=== PATIENT | male | born 1965 | race Caucasian/White ===

== ENCOUNTER 2025-07-15 12:21 | Outpatient (OUT) | payer MEDICARE, MEDICAID, SELFPAY ==
--- OUTSIDE RECORDS SUMMARY | 2020-03-02 11:00 | XMS_ITS | Continuity of Care Document ---
Author Organization [facility] Address [address] [place] [address] Phone Care Team Providers Care Spectral Scientist Name Role Phone Kvng Savage Unavailable Unavailable [...] was developed and its performance characteristics determinedby [employer]. This test has not been FDA cleared [...] anegative (not detected) result in this assay.Performed by:[facility] ([facility]) Advance Directives Directive Yes / No Effective Date File Name No Information Encounters Encounter Description Practice Location Reason(s) For Visit Diagnoses Date Provider Providers Copied on Encounter [facility], [address] [place] [address], [id number], [place] tel:[phone] COVID ECHD Encounter for screening for other viral diseases Artem HILL Kvng. [address] [place] [address], [id number], [place]. tel:[phone] [facility], [address] [place] [address], [id number], [place] tel:[phone] COVID ECHD Encounter for screening for other viral diseases [facility] [address] [place] [address], [id number], [place]. tel:[phone] [facility], [address] [place] [address], [id number], [place] tel:[phone] Dental Clinic Encounter for screening for dental disorders Jhon Roman. [address] [place] [address], [id number], [place]. tel:[phone] [facility], [address] [place] [address], [id number], [place] tel:[phone] Dental Clinic prophy (chief complaint) Encounter for screening for dental disorders Ronak Elise. [address] [place], [address], [place]. tel:[phone] [facility], [address] [place] [address], [id number], [place] tel:[phone] Dental Clinic Dental New (chief complaint)D ental New (chief complaint) Encounter for screening for dental disorders Ronak Elise. [address] [facility], [place], [address], [place]. tel:[phone] Family History Family Member Type Diagnosis Age At Onset Mother Problem (finding) Alive and well Mother Problem (finding) Cardiovascular disease Father Problem (finding) Father Problem (finding) Father went do [facility] health after having collapsed lung Payers Payer name Insurance type Covered democrat ID Authoriza tion(s) No Information Social History [...]
--- OUTSIDE RECORDS SUMMARY | 2025-01-10 09:30 | XMS_ITS ---
Author Organization [facility] Address [address] [place] [address] Care Team Providers Care Extrusion Press Supervisor Name Role Phone Alejandra Edmonds Primary Care Provider [phone] Li Junior [phone] REASON FOR VISIT BH F/U rescheduled from 01/11 Social History Sex Assigned At : Social History Observation Description Sex Assigned At Male Encounters Encounter Location Date Provider Diagnosis [facility] [address] [place] [address] 01/10/2025 Li Quiñones Plan Of Treatment Next Appt Details Provider Name:Alejandra Edmonds, 08/09/2025 02:30:00 PM, [facility] E [facility], [place], [address], Progress Notes * HUI VAUGHN PDOB:[birth year] (60 yo M)Acc No.[id number]:01/10/2025 Behavioral Health Patient: HUI PARSONS Appointment Provider: Keri Quiñones :1965 A ge:59 Y S ex:Male Date:01/10/2025 Address:[address] [place], [place] [address] Pcp:Alejandra Edmonds Subjective: * Chief Complaints: * B H F/U rescheduled from 01/11 * Electronic signature of CATHRYN So FNP on 07/15/2025 at 12:29 PM EDT Sign off status: Pending * Appointment Provider: Keri Quiñones Date: 0 01/10/2025 Generated for Carlos berg/Yani/Sharla on: 1 12:29 PM EDT
--- OUTSIDE RECORDS SUMMARY | 2025-01-11 10:00 | XMS_ITS ---
Author Organization [facility] Address [address] [place] [address] Care Team Providers Care Foil Spinner Name Role Phone Alejandra Edmonds Primary Care Provider [phone] Li Junior [phone] REASON FOR VISIT 1 year f/u Social History Sex Assigned At : Social History Observation Description Sex Assigned At Male Encounters Encounter Location Date Provider Diagnosis [facility] [address] [place] [address] 01/11/2025 Li Quiñones Plan Of Treatment Next Appt Details Provider Name:Alejandra Edmonds, 08/09/2025 02:30:00 PM, [address] [place], [address], Progress Notes * HUI VAUGHN PDOB:[birth year] (60 yo M)Acc No.[id number]:01/11/2025 Behavioral Health Patient: HUI PARSONS Appointment Provider: Keri Quiñones :1965 A ge:59 Y S ex:Male Date:01/11/2025 Address:[address] [place], [place] Pcp:Alejandra Edmonds Subjective: * Chief Complaints: * 1 year f/u * Electronic signature of CATHRYN So FNP on 07/15/2025 at 12:30 PM EDT Sign off status: Pending * Appointment Provider: Keri Quiñones Date: 0 01/11/2025 Generated for Carlos berg/Yani/Samanthaitting on: 1 12:30 PM EDT
--- OUTSIDE RECORDS SUMMARY | 2025-02-03 06:00 | XMS_ITS ---
Author Organization [facility] es Address [address] [place] [address] Care Team Providers Care Mechanical Ordnance Assembler Name Role Phone Alejandra Edmonds Primary Care Provider Ishmael Li Wood [phone] REASON FOR VISIT 3month f/u Social History Sex Assigned At : Social History Observation Description Sex Assigned At Male Encounters Encounter Location Date Provider Diagnosis [address] [place] [address] 02/03/2025 Alejandra Edmonds Plan Of Treatment Next Appt Details Provider Name:Alejandra Edmonds, 08/09/2025 02:30:00 PM, [address] [place] [address] [place], [address], Progress Notes * HUI VAUGHN PDOB:[birth year] (60 yo M)Acc No.[id number]:02/03/2025 Progress Notes Patient: Donnie HUI ROBLES Appointment Provider: Uche Edmonds NP :1965 A ge:59 Y S ex:Male Date:02/03/2025 Address:[address] [place] [address] Subjective: * Chief Complaints: * 3 month f/u * Electronic signature of Francesco Edmonds CNP on 07/15/2025 at 12:29 PM EDT Sign off status: Pending * Appointment Provider: Uche Edmonds NP Date: 0 02/03/2025 Generated for Carlos berg/Yani/Sharla on: 1 12:29 PM EDT
--- OUTSIDE RECORDS SUMMARY | 2025-05-05 06:00 | XMS_ITS ---
Author Organization [facility] es Address [address] [place] [address] Care Team Providers Care Business Performance Manager Name Role Phone Alejandra Edmonds Primary Care Provider [phone] Ishmael Li Wood [phone] REASON FOR VISIT 3month f/u Social History Sex Assigned At : Social History Observation Description Sex Assigned At Male Encounters Encounter Location Date Provider Diagnosis [address] [place] [address] 05/05/2025 Alejandra Edmonds Plan Of Treatment Next Appt Details Provider Name:Alejandra Edmonds, 08/09/2025 02:30:00 PM, [address] [place] [address] [place], [address], Progress Notes * HUI VAUGHN PDOB:[birth year] (60 yo M)Acc No.[id number]:05/05/2025 Progress Notes Patient: Donnie HUI ROBLES Appointment Provider: Uche Edmonds NP :1965 A ge:60 Y S ex:Male Date:05/05/2025 Address:[address] [place] [address] Subjective: * Chief Complaints: * 3 month f/u Billing Information: * Procedure Codes: * Electronic signature of Francesco Edmonds CNP on 07/15/2025 at 12:28 PM EDT Sign off status: Pending * Appointment Provider: Uche Edmonds NP Date: 0 05/05/2025 Generated for Carlos berg/Yani/Sharla on: 1 12:28 PM EDT
--- OUTSIDE RECORDS SUMMARY | 2025-07-15 12:28 | XMS_ITS | Clinical Summary ---
Author Organization [facility] Address [address] [place] [address] Phone Care Team Providers Care Feedlot Manager Name Role Phone Alejandra Edmonds APRN-ROLLED MATERIALS WORKER Primary Care Provider + Allergies No known active allergies Medications cyclobenzaprine (Flexeril) 10 mg tablet Take 1 tablet (10 mg) by mouth 3 times a day as needed. Active desvenlafaxine (Pristiq) 50 mg 24 hr tablet Take 1 tablet (50 mg) by mouth once daily. Do not crush, chew, or split. Active fluticasone (Flonase) 50 mcg/actuation nasal spray Administer 1 spray into each nostril once daily. Shake gently. Before first use, prime pump. After use, clean tip and replace cap. Active HYDROcodone-effie taminophen ([place]) 5-325 mg tablet Take 1 tablet by mouth. Every 4 to 6 hours as needed Active hydrOXYzine HCL (Atarax) 50 mg tablet Take 1 tablet (50 mg) by mouth once daily at bedtime. Active ibuprofen 400 mg tablet Take 1 tablet (400 mg) by mouth 3 times a day as needed. Active pentoxifylline (Trental) 400 mg ER tablet Take 1 tablet (400 mg) by mouth 3 times a day. Do not crush, chew, or split. Active QUEtiapine (SEROquel) 50 mg tablet Take 1 tablet (50 mg) by mouth 2 times a day. Active simvastatin (Zocor) 40 mg tablet Take 1 tablet (40 mg) by mouth once daily at bedtime. Active temazepam (Restoril) 30 mg capsule Take 1 capsule (30 mg) by mouth once daily at bedtime. 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 Active cariprazine HCl (VRAYLAR ORAL) Take 1 capsule by mouth once daily. Active rivaroxaban (Xarelto) 20 mg tablet Take 1 tablet (20 mg) by mouth once daily. Take with food. Active Active Problems Problem Noted Date Diagnosed Date Personal history of COVID-19 07/03/2023 Anticoagulated by anticoagulation treatment 01/2023 Encounter to discuss test results 07/03/2023 Assessment & Plan (07/05/2023 3:29 PM EDT): Reviewed laboratory data and stress test results with patient during this visit Discussed that coronary artery disease is a dynamic process and that he should seek prompt medical attention if new symptoms develop. Patient may follow-up with me on an as-needed basis Thank you Enma for allowing us to participate in Mr. Amadou barrett please do not hesitate to call if questions arise, Sincerely, Lydia Alex MD [facility] Abnormal EKG 05/26/2023 Assessment & Plan (07/05/2023 3:21 PM EDT): Patient with risk factors, recent treadmill perfusion imaging study from May 2023 was negative for ischemia at a workload of 7 METS 96% age-predicted maximum heart rate, LVEF 64%, transient ischemic dilatation 1.1 which is normal. No angina pectoris or anginal equivalent. GERD (gastroesophageal reflux disease) Assessment & Plan (07/05/2023 3:24 PM EDT): Patient did not report any symptoms Remains on ibuprofen as needed Consider GI prophylaxis, defer to primary Discussed GI irritation possibility of GI bleeding on anticoagulation and nonsteroidal agents, my understanding is that he uses the nonsteroidals sparingly. Patient understands importance of seeking medical attention if he were to develop any blood in the stool or black stool. History of DVT (deep vein thrombosis) 05/26/2023 Assessment & Plan (07/05/2023 3:23 PM EDT): Patient remains on high risk medication Xarelto, 20 mg daily, appropriate dose Xarelto management is addressed by primary care. Could consider hematology oncology evaluation to help assess the duration of Antex coagulation. Patient has completed 6 months. History of pulmonary embolus (PE) 05/26/2023 Assessment & Plan (07/05/2023 3:23 PM EDT): No symptoms, completed adequate duration of anticoagulation. Mixed hyperlipidemia 05/26/2023 Assessment & Plan (07/05/2023 3:22 PM EDT): Patient remains on simvastatin 40 mg daily without any untoward effects Lipid profile from February 2023 is at target with LDL of 68 triglycerides 120 HDL 49. Continue same Sinus tachycardia 05/26/2023 Resolved Problems Problem Noted Date Diagnosed Date Resolved Date Chronic obstructive pulmonar y disease, unspecified 05/26/2023 07/03/2023 Hypertension 05/26/2023 07/03/2023 Immunizations Immunization Administration Dates Next Due Flu vaccine (IIV4), preserva tive free *Check age/dose* 06/10/2022 Influenza, Unspecified 07/31/2021 Influenza, seasonal, injectable 05/30/2016,06/13 MMR vaccine, subcutaneous (MMR II) 03/25/2016 Moderna COVID-19 vaccine, bi valent, blue cap/yusuf label *Check age/dose* 06/10/2022 Moderna SARS-CoV-2 Vaccination 08/16/2021,2020,12/07/2020 Pneumococcal conjugate vacci ne, 13-valent (PREVNAR 13) 06/13/2015 Pneumococcal polysaccharide vaccine, 23-valent, age 2 years and older (PNEUMOVAX 23) 07/11/2016 Zoster vaccine, recombinant, adult (SHINGRIX) 01/18/2021,10/03/2020 Family History Medical History Relation Name Comments S/P CABG X3 Mother Relation Name Status Comments Mother Social History Tobacco Use Types Packs/Day Years Used Date Smoking Tobacco: Former Cigarettes Smokeless Tobacco: Never Alcohol Use Standard Drinks/Week Comments Yes 1 (1 standard drink = 0.6 oz pur e alcohol) PHQ-2 Answer Date Recorded Patient Health Questionnaire-2 Score 0 07/03/2023 Sex and Gender Information Value Date Recorded Sex Assigned at Not on file Legal Sex Male 2:48 PM EST Gender Identity Not on file Sexual Orientation Not on file Last Filed Vital Signs Vital Sign Reading Time Taken Comments Blood Pressure 110/78 07/03/2023 9:15 AM EDT Pulse 80 07/03/2023 9:15 AM EDT Temperature - - Respiratory Rate - - Oxygen Saturation - - Inhaled Oxygen Concentration - - Weight 104 kg (229 lb) 07/03/2023 9:15 AM EDT Height 188 cm (6' 2 ) 07/03/2023 9:15 AM EDT Body Mass Index 29.4 07/03/2023 9:15 AM EDT Plan of Treatment Health Maintenance Due Date Last Done Comments CT Colonography 1963 Colonoscopy 1963 Colorectal Cancer Screening 1963 FIT-DNA (Cologuard) 1963 FIT 1963 HIV Screening 1963 Lipid Panel 1963 Medicare Annual Wellness Visit (AWV) 1963 Sigmoidoscopy 1963 Diabetes Screening 1981 Hepatitis C Screening 1981 DTaP/Tdap/Td Vaccines (1 - Tdap) 1985 PSA Prostate Cancer Screening 2013 Pneumococcal Vaccine (3 of 3 - PCV20 or PCV21) 07/11/2021 07/11/2016, 06/13/2015 RSV High Risk: (Elderly (60+) or Population) (1 - Risk 60-74 years 1-dose series) 2023 Influenza Vaccine (#1) 2025 3, 06/10/2022, 07/31/2021, Additional history exists COVID-19 Vaccine ( season) 2025 06/10/2022, 08/16/2021, 01/04/2021, Additional history exists MMR Vaccines Completed 03/25/2016 Zoster Vaccines Completed 01/18/2021, 10/03/2020 HIB Vaccines Aged Out No longer eligi ble based on patient's age to complete this topic HPV Vaccines Aged Out No longer eligi ble based on patient's age to complete this topic Hepatitis A Vaccines Aged Out No long er eligible based on patient's age to complete this topic Hepatitis B Vaccines Aged Out No long er eligible based on patient's age to complete this topic IPV Vaccines Aged Out No longer eligi ble based on patient's age to complete this topic Meningococcal Vaccine Aged Out No braydon jesus eligible based on patient's age to complete this topic Rotavirus Vaccines Aged Out No longer eligible based on patient's age to complete this topic Insurance MEDICARE PART A AND B Member Subscriber Plan / Payer (Ef fective 2021-Present) Name:Jose Angel Tobar Member ID:[id number] Relation to Subscriber:Self Name:Jose Angel Tobar Subscriber ID:[id number] Payer ID:Not on file Group ID:Not on file Type:Not on file Address: [facility] [id number] [id number] MEDICAID Care Teams Feedlot Manager Relationship Specialty Start Date End Date Alejandra Edmonds APRN-JEANNA [address] [place] [id number] PCP - General 11/11/22
--- OUTSIDE RECORDS SUMMARY | 2025-07-15 12:29 | XMS_ITS | Patient Health Record ---
Author Organization [facility] Address [facility] access hospital[address] [place] [address] Care Team Providers Care Slate Trimmer Name Role Phone Vinicio Andersen Unavailable [phone] Reason For Referral No Information Plan Of Treatment No Information Insurance Providers Payer Name Payer Address Payer Phone Subscriber Number Group Number Insured Name Patient Relationship to Insured Coverage Start Date Coverage End Date [place] [employer] [address] [place] [address] [id number] Jose Angel Tobar Self - patient is the insured
--- OUTSIDE RECORDS SUMMARY | 2025-07-15 12:29 | XMS_ITS | Encounter Summary ---
Author Organization [facility] Address [address] [place] [address] Phone Care Team Providers Care Tool Salvage Worker Name Role Phone Alejandra Edmonds Primary Care Provider + Alejandra Edmonds Primary Care Provider + Encounter Details Date Type Department Care Team (Late st Contact Info) Description 11/09/2022 Orders Only [facility] [address] [place] [address] Conversion, Onbase Social History Tobacco Use Types Packs/Day Years Used Date Smoking Tobacco: Never Assessed Sex and Gender Information Value Date Recorded Sex Assigned at Not on file Legal Sex Male 2:48 PM EST Gender Identity Not on file Sexual Orientation Not on file documented as of this encounter Plan of Treatment Scheduled Orders Name Type Priority Associated Diagnoses Orde r Schedule OUTSIDE LAB SCAN Lab Ordered: 11/09/2022 OUTSIDE LAB SCAN Lab Ordered: 11/09/2022 documented as of this encounter Visit Diagnoses Not on filedocumented in this encounter Care Teams Tool Salvage Worker Relationship Specialty Start Date End Date Alejandra Edmonds APRN-CNP [address] [place] [address] PCP - General 11/11/22 Alejandra Edmonds APRN-CNP [address] [place] [address] PCP - General 11/09/22 11/10/22 documented as of this encounter
--- OUTSIDE RECORDS SUMMARY | 2025-07-15 12:30 | XMS_ITS | Clinical Summary ---
Author Organization [facility] Healthcare Address [address] [place] [address] Care Team Providers Care Photographic Reproduction Technician Name Role Phone Unavailable Primary Care Provider Unavailabl e Social History Tobacco Use Types Packs/Day Years Used Date Smoking Tobacco: Never Assessed Sex and Gender Information Value Date Recorded Sex Assigned at Not on file Legal Sex Male 6:55 PM EDT Gender Identity Not on file Sexual Orientation Not on file Last Filed Vital Signs Vital Sign Reading Time Taken Comments Blood Pressure 117/73 03/06/2022 12:00 PM EDT Pulse - - Temperature - - Respiratory Rate - - Oxygen Saturation - - Inhaled Oxygen Concentration - - Weight - - Height 188 cm (6' 2 ) 03/06/2022 12:00 PM EDT Body Mass Index - - Plan of Treatment Not on file Insurance MEDICARE
--- OUTSIDE RECORDS SUMMARY | 2025-07-15 12:30 | XMS_ITS | Encounter Summary ---
Author Organization [facility] Address [address] [place] [address] Phone Care Team Providers Care Extractions Technician Name Role Phone Alejandra Edmonds Primary Care Provider + Encounter Details Date Type Department Care Team ([facility] st Contact Info) Description 11/15/2022 Orders Only [facility] [address] [place] [address] Conversion, Onbase Social History Tobacco Use Types [...] r Schedule OUTSIDE LAB SCAN Lab Ordered: 11/15/2022 documented as of this encounter Visit Diagnoses Not on filedocumented in this encounter Care Teams Extractions Technician Relationship Specialty Start Date End Date Alejandra Edmonds APRN-CNP [address] [place] [id number] PCP - General 11/11/22 documented as of this encounter
--- OUTSIDE RECORDS SUMMARY | 2025-07-15 12:31 | XMS_ITS | Patient Health Record ---
Author Organization [facility] Servic es Address [address] [place] [address] Care Team Providers Care Dough Molder Name Role Phone Alejandra Edmonds Primary Care Provider [phone] Li Quiñones Unavailable [phone] Allergies No Known Allergies Results Component Value Reference Range Flag Notes Prostate Specific Antigen Sc rn Reviewed date:06/08/2025 05:57:21 PM Interpretation: Performing Lab:, [facility], [address], [place] Notes/Report: Reason for Exam Encounter for prostate cancer screening PSA Screen (Yearly Only) 0.920 0.000-4.000 ng/mL N Serial tumor marker results determined by assays using different manufacturers or methods may not be comparable. 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 Vitamin D 25 Hydroxy Reviewed date:06/08/2025 05:56:47 PM Interpretation: Performing Lab: Notes/Report: Reason for Exam High blood triglycerides Reason for Exam Vitamin D deficiency, unspecified Vitamin D 25 Hydroxy Total 38.6 30-100 ng/mL N VITAMIN D STATUS 25(OH)VITAMIN D RANGE (ng/mL) Deficient <20 Insufficient 20 to <30 Sufficient 30 to 100 Reference: Guerline MF,Vaibhav NC, Gonzalez OCONNOR, et al. Evaluation,treatment, and prevention of vitamin D deficiency; an Endocrine Society clinical practice guideline. JCEM. 2010; 96(7):1911-30. Complete Blood Count Auto Di ff Reviewed date:05/27/2025 01:46:43 PM Interpretation: Performing Lab:, [facility], [address] [place] Notes/Report: White Blood Count 11.7 4.1-10.5 [CFU]/mL H Uncorrected WBC 11.7 4.1-10.5 10*3/uL H Red Blood Count 5.06 3.90-5.60 10*6/uL N Hemoglobin 14.5 13.0-17.0 g/dL N Hematocrit 43.6 38.8-50.0 % N Mean Corpuscular Volume 86.3 83.5-101 fL N Mean Corpuscular Hemoglobin 28.7 27.5-35.2 pg N Mean Corpuscular HGB Conc 33.3 32.5-35.6 g/dL N Red Cell Distribution Width 13.1 12.0-14.8 % N Platelet Count 228 150-450 10*3/uL N Mean Platelet Volume 7.1 6.6-10.1 fL N Neutrophils % (Auto) 82.6 . % Lymphocytes % (Auto) 14.1 . % Monocytes % (Auto) 2.6 . % Eosinophils % (Auto) 0.2 . % Basophils % (Auto) 0.5 . % NRBC% 0.1 0-0.5 /100{WBC} N Neutrophils # (Auto) 9.7 1.8-7.7 10*3/uL H Lymphocytes # (Auto) 1.6 1.00-4.8 10*3/uL N Monocytes # (Auto) 0.3 0.0-0.8 10*3/uL N Eosinophils # (Auto) 0.0 0.0-0.45 10*3/uL N Basophils # (Auto) 0.1 0.0-0.2 10*3/uL N Monocyte Distribution Width 16.97 0.00-20.00 % N Comprehensive Metabolic Pane l Reviewed date:07/12/2025 09:23:02 AM Interpretation: Performing Lab:, [facility], [address] [place] Notes/Report: Glucose 206 70-100 mg/dL H Random Glucose Reference Range is dependent on time and content of last meal. Glucose of more than 200 mg/dL in a nonstressed, ambulatory subject supports the diagnosis of Diabetes Mellitus. ADA recommended reference range Blood Urea Nitrogen 16 7-25 mg/dL N Creatinine 1.15 0.70-1.30 mg/dL N Sodium 136 136-145 mmol/L N Potassium 4.3 3.5-5.1 mmol/L N Hemolysis is present at a level that could interfere with the result. Contact lab if redraw is required Chloride 104 98-107 mmol/L N Carbon Dioxide 24.0 21.0-31.0 mmol/L N Calcium 9.4 8.6-10.3 mg/dL N Total Protein 7.6 6.4-8.9 g/dL N Albumin Level 4.6 3.5-5.7 g/dL N Globulin 3.0 Albumin/Globulin Ratio 1.5 Bilirubin,Total 0.7 0.3-1.0 mg/dL N Aspartate Amino Transferase 34 13-39 U/L N Alanine Aminotransferase 51 7-52 U/L N Alkaline Phosphatase 81 34-104 U/L N Estimated GFR >60.0 Anion Gap 12.3 6.0-15.0 N Creatinine Clr Calc Pharmacy 89.38 Lipase Reviewed date:07/12/2025 09:23:02 AM Interpretation: Performing Lab: Notes/Report: Lipase 29.0 11.0-82.0 U/L N Complete Blood Count Auto Di ff Reviewed date:07/12/2025 09:23:02 AM Interpretation: Performing Lab:, [facility], [address] [place] Notes/Report: White Blood Count 10.0 4.1-10.5 [CFU]/mL N Uncorrected WBC 10.0 4.1-10.5 10*3/uL N Red Blood Count 5.35 3.90-5.60 10*6/uL N Hemoglobin 15.7 13.0-17.0 g/dL N Hematocrit 45.9 38.8-50.0 % N Mean Corpuscular Volume 85.8 83.5-101 fL N Mean Corpuscular Hemoglobin 29.4 27.5-35.2 pg N Mean Corpuscular HGB Conc 34.2 32.5-35.6 g/dL N Red Cell Distribution Width 13.8 12.0-14.8 % N Platelet Count 239 150-450 10*3/uL N Mean Platelet Volume 7.8 6.6-10.1 fL N Neutrophils % (Auto) 70.2 . % Lymphocytes % (Auto) 21.5 . % Monocytes % (Auto) 5.5 . % Eosinophils % (Auto) 2.1 . % Basophils % (Auto) 0.7 . % NRBC% 0.2 0-0.5 /100{WBC} N Neutrophils # (Auto) 7.0 1.8-7.7 10*3/uL N Lymphocytes # (Auto) 2.1 1.00-4.8 10*3/uL N Monocytes # (Auto) 0.5 0.0-0.8 10*3/uL N Eosinophils # (Auto) 0.2 0.0-0.45 10*3/uL N Basophils # (Auto) 0.1 0.0-0.2 10*3/uL N Monocyte Distribution Width 19.43 0.00-20.00 % N Dipstick and Microscopic Reviewed date:07/12/2025 09:23:02 AM Interpretation: Performing Lab:, [facility], [address] [facility] Notes/Report: Name Collection Type:: Clean-Voided Midstream Color,Urine Light-Yellow Yellow Appearance,Urine Clear Clear Specificy [place],Urine 1.022 1.001-1.030 N pH,Urine 6.0 5.0-9.0 N Leukocyte Esterase,Urine Negative Negative Nitrite,Urine Negative Negative Protein,Urine 20 Negative mg/dL Glucose,Urine (UA) 100 Normal mg/dL Ketones,Urine Negative Negative Urobilinogen,Urine Normal Normal mg/dL Bilirubin,Urine Negative Negative Occult Blood,Urine 3+ Negative RBC,Urine Innumerable 0-4 [HPF] WBC,Urine 20-49 0-4 [HPF] Bacteria,Urine None Seen None Seen [HPF] Hyaline Casts,Urine None 0-8 [LPF] Mucus,Urine Rare Lipid Panel Reviewed date:06/08/2025 05:57:14 PM Interpretation: Performing Lab: Notes/Report: Reason for Exam High blood triglycerides Reason for Exam Vitamin D deficiency, unspecified Cholesterol 171 140-200 mg/dL N Chol less than 200 mg/dl low risk Chol 201-239 mg/dl borderline risk Chol 240 mg/dl and greater high risk HDL Cholesterol 47 23-92 mg/dL N HDL CHOL ATP-III CLASSIFICATION Cardiovascular Risk HDL > or equal to 60 mg/dL LOW HDL < 40 mg/dL HIGH Triglyceride w/Reflex 192 0-149 mg/dL H TRIG ATP III CLASSIFICATION TRIG less than 150 mg/dL Normal TRIG 150-199 mg/dL Borderline high TRIG 200-500 mg/dL High TRIG greater than 500 mg/dL Very high Standard traceable to the Center for Disease Conrtrol and Prevention (CDC) test method. LDL Cholesterol,Calculated 86 0-100 mg/dL N LDL ATP III CLASSIFICATION LDL less than 100 mg/dL Optimal LDL 100-129 mg/dL Near or above optimal LDL 130-159 mg/dL Borderline high LDL 160-189 mg/dL High LDL greater than 189 mg/dL Very high VLDL CHOLESTEROL 38 Chol/HDL Ratio 3.6 <5.0 Comprehensive Metabolic Pane l Reviewed date:06/08/2025 05:57:39 PM Interpretation: Performing Lab:, [facility], [address], [place] Notes/Report: Reason for Exam High blood triglycerides Reason for Exam Vitamin D deficiency, unspecified Glucose 102 70-100 mg/dL H Random Glucose Reference Range is dependent on time and content of last meal. Glucose of more than 200 mg/dL in a nonstressed, ambulatory subject supports the diagnosis of Diabetes Mellitus. ADA recommended reference range Blood Urea Nitrogen 18 7-25 mg/dL N Creatinine 1.02 0.70-1.30 mg/dL N Sodium 138 136-145 mmol/L N Potassium 4.0 3.5-5.1 mmol/L N Chloride 104 98-107 mmol/L N Carbon Dioxide 24.8 21.0-31.0 mmol/L N Calcium 8.8 8.6-10.3 mg/dL N Total Protein 7.3 6.4-8.9 g/dL N Albumin Level 4.6 3.5-5.7 g/dL N Globulin 2.7 Albumin/Globulin Ratio 1.7 Bilirubin,Total 1.2 0.3-1.0 mg/dL H Aspartate Amino Transferase 23 13-39 U/L N Alanine Aminotransferase 39 7-52 U/L N Alkaline Phosphatase 80 34-104 U/L N Estimated GFR >60.0 Anion Gap 13.2 6.0-15.0 N Lipase Reviewed date:05/25/2025 02:13:24 PM Interpretation: Performing Lab: Notes/Report: Lipase 20.0 11.0-82.0 U/L N Hepatic Panel Reviewed date:05/25/2025 02:11:58 PM Interpretation: Performing Lab:, [facility], [address] [place] Notes/Report: Total Protein 7.4 6.4-8.9 g/dL N Albumin Level 4.6 3.5-5.7 g/dL N Globulin 2.8 Albumin/Globulin Ratio 1.6 Bilirubin,Total 0.8 0.3-1.0 mg/dL N Bilirubin,Direct 0.20 0.03-0.18 mg/dL H Bilirubin,Indirect 0.6 Aspartate Amino Transferase 22 13-39 U/L N Alanine Aminotransferase 42 7-52 U/L N Alkaline Phosphatase 82 34-104 U/L N Basic Metabolic Panel Reviewed date:05/26/2025 09:23:53 PM Interpretation: Performing Lab: Notes/Report: Glucose 128 70-100 mg/dL H Random Glucose Reference Range is dependent on time and content of last meal. Glucose of more than 200 mg/dL in a nonstressed, ambulatory subject supports the diagnosis of Diabetes Mellitus. ADA recommended reference range Blood Urea Nitrogen 17 7-25 mg/dL N Sodium 137 136-145 mmol/L N Potassium 4.4 3.5-5.1 mmol/L N Chloride 103 98-107 mmol/L N Carbon Dioxide 25.3 21.0-31.0 mmol/L N Calcium 9.4 8.6-10.3 mg/dL N Creatinine 1.13 0.70-1.30 mg/dL N Estimated GFR >60.0 Anion Gap 13.1 6.0-15.0 N Creatinine Clr Calc Pharmacy 89.47 Urine Culture Reviewed date:05/25/2025 02:11:48 PM Interpretation: Performing Lab:, [facility], [address] [place] [address] [place] Notes/Report: Dipstick and Microscopic Reviewed date:05/26/2025 09:23:42 PM Interpretation: Performing Lab:, [facility], [address] [place] Notes/Report: Name Collection Type:: Clean-Voided Midstream Color,Urine Dark-Brown Yellow AA Appearance,Urine Turbid Clear AA Specificy [place],Urine 1.028 1.001-1.030 N pH,Urine 5.5 5.0-9.0 N Leukocyte Esterase,Urine 2+ Negative Nitrite,Urine Negative Negative Protein,Urine 100 Negative mg/dL Glucose,Urine (UA) Normal Normal mg/dL Ketones,Urine Negative Negative Urobilinogen,Urine Normal Normal mg/dL Bilirubin,Urine Negative Negative Occult Blood,Urine 3+ Negative RBC,Urine Innumerable 0-4 [HPF] WBC,Urine 5-9 0-4 [HPF] Othe Crystals,Urine 3+ Bacteria,Urine None Seen None Seen [HPF] Hyaline Casts,Urine None 0-8 [LPF] Mucus,Urine 4+ AA Budding Yeast,Urine 4+ None Seen [HPF] Complete Blood Count Auto Di ff Reviewed date:11/05/2024 07:25:53 AM Interpretation: Performing Lab:, [facility], [address], [place] Notes/Report: Reason for Exam Hyperlipidemia, unspecified hyperlipidemia type White Blood Count 6.4 4.1-10.5 10*3/uL N Uncorrected WBC 6.4 4.1-10.5 10*3/uL N Red Blood Count 5.06 3.90-5.60 10*6/uL N Hemoglobin 15.0 13.0-17.0 g/dL N Hematocrit 44.2 38.8-50.0 % N Mean Corpuscular Volume 87.3 83.5-101 fL N Mean Corpuscular Hemoglobin 29.7 27.5-35.2 pg N Mean Corpuscular HGB Conc 34.0 32.5-35.6 g/dL N Red Cell Distribution Width 13.2 12.0-14.8 % N Platelet Count 213 150-450 10*3/uL N Mean Platelet Volume 7.6 6.6-10.1 fL N Neutrophils % (Auto) 56.1 . % Lymphocytes % (Auto) 33.3 . % Monocytes % (Auto) 5.5 . % Eosinophils % (Auto) 4.3 . % Basophils % (Auto) 0.8 . % NRBC% 0.3 0-0.5 /100{WBC} N Neutrophils # (Auto) 3.6 1.8-7.7 10*3/uL N Lymphocytes # (Auto) 2.1 1.00-4.8 10*3/uL N Monocytes # (Auto) 0.3 0.0-0.8 10*3/uL N Eosinophils # (Auto) 0.3 0.0-0.45 10*3/uL N Basophils # (Auto) 0.0 0.0-0.2 10*3/uL N Vitamin D 25 Hydroxy Reviewed date:11/05/2024 07:29:40 AM Interpretation: Performing Lab: Notes/Report: Reason for Exam Hyperlipidemia, unspecified hyperlipidemia type Reason for Exam Vitamin D deficiency, unspecified Vitamin D 25 Hydroxy Total 44.1 30-100 ng/mL N VITAMIN D STATUS 25(OH)VITAMIN D RANGE (ng/mL) Deficient <20 Insufficient 20 to <30 Sufficient 30 to 100 Reference: Guerline MF,Vaibhav BAKER, Gonzalez OCONNOR, et al. Evaluation,treatment, and prevention of vitamin D deficiency; an Endocrine Society clinical practice guideline. JCEM. 2010; 96(5):1911-30. Thyroid Stim Hormone w/Rflx Reviewed date:11/05/2024 07:25:32 AM Interpretation: Performing Lab: Notes/Report: Reason for Exam Hyperlipidemia, unspecified hyperlipidemia type Reason for Exam Vitamin D deficiency, unspecified Thyroid Stim Hormone w/Rflx 1.50 0.45-5.33 u[iU]/mL N Lipid Panel Reviewed date:11/05/2024 07:25:26 AM Interpretation: Performing Lab: Notes/Report: Reason for Exam Hyperlipidemia, unspecified hyperlipidemia type Reason for Exam Vitamin D deficiency, unspecified Cholesterol 128 140-200 mg/dL L Chol less than 200 mg/dl low risk Chol 201-239 mg/dl borderline risk Chol 240 mg/dl and greater high risk HDL Cholesterol 40 23-92 mg/dL N HDL CHOL ATP-III CLASSIFICATION Cardiovascular Risk HDL > or equal to 60 mg/dL LOW HDL < 40 mg/dL HIGH Triglyceride w/Reflex 163 0-149 mg/dL H TRIG ATP III CLASSIFICATION TRIG less than 150 mg/dL Normal TRIG 150-199 mg/dL Borderline high TRIG 200-500 mg/dL High TRIG greater than 500 mg/dL Very high Standard traceable to the Center for Disease Conrtrol and Prevention (CDC) test method. LDL Cholesterol,Calculated 55 0-100 mg/dL N LDL ATP III CLASSIFICATION LDL less than 100 mg/dL Optimal LDL 100-129 mg/dL Near or above optimal LDL 130-159 mg/dL Borderline high LDL 160-189 mg/dL High LDL greater than 189 mg/dL Very high VLDL CHOLESTEROL 32 Chol/HDL Ratio 3.2 <5.0 Comprehensive Metabolic Pane l Reviewed date:11/05/2024 07:25:40 AM Interpretation: Performing Lab:, [facility], [address] [place] Notes/Report: Reason for Exam Hyperlipidemia, unspecified hyperlipidemia type Reason for Exam Vitamin D deficiency, unspecified Glucose 96 70-100 mg/dL N Random Glucose Reference Range is dependent on time and content of last meal. Glucose of more than 200 mg/dL in a nonstressed, ambulatory subject supports the diagnosis of Diabetes Mellitus. ADA recommended reference range Blood Urea Nitrogen 17 7-25 mg/dL N Creatinine 1.10 0.70-1.30 mg/dL N Sodium 140 136-145 mmol/L N Potassium 4.2 3.5-5.1 mmol/L N Chloride 106 98-107 mmol/L N Carbon Dioxide 29.2 21.0-31.0 mmol/L N Calcium 8.9 8.6-10.3 mg/dL N Total Protein 7.0 6.4-8.9 g/dL N Albumin Level 4.5 3.5-5.7 g/dL N Globulin 2.5 Albumin/Globulin Ratio 1.8 Bilirubin,Total 0.7 0.3-1.0 mg/dL N Aspartate Amino Transferase 28 13-39 U/L N Alanine Aminotransferase 57 7-52 U/L H Alkaline Phosphatase 68 34-104 U/L N Estimated GFR >60.0 Anion Gap 9.0 6.0-15.0 meq/L N Reason For Referral No Information Medications Medication SIG (Take, Route, Frequency, Duration) Notes Start Date End Date Status QUEtiapine Fumarate 50 MG Tablet TAKE 1 OR 2 TABLETS BY MOUTH AT BEDTIME; Duration: 90 Active Vitamin D (Ergocalciferol) 1.25 MG (35296 UT) Capsule TAKE 1 CAPSULE BY MOUTH 1 TIME A WEEK; Duration: 84 days Active HYDROcodone-Acetaminophen 5-325 MG Tablet 1 tablet Orally every 6 hrs; Duration: 30 days As needed 07/05/2025 08/04/2025 Active Atorvastatin Calcium 20 MG Tablet 1 tablet Orally Once a day; Duration: 90 days Active Vraylar 3 MG Capsule TAKE 1 CAPSULE BY M OUTH EVERY DAY; Duration: 30 Active Xarelto 20 MG Tablet TAKE 1 TABLET BY MO UTH EVERY DAY; Duration: 30 Active Ondansetron 4 MG Tablet Disintegrating Oral; Duration: 4 Days Act tricia Temazepam 30 MG Capsule 1 capsule at bed time Orally Once a day; Duration: 30 days 06/17/2025 Active hydrOXYzine HCl 50 MG Tablet TAKE 1 TABLET BY MOUTH AT NIGHT FOR 30 DAYS.; Duration: 30 Active oxyCODONE HCl 5 MG Tablet Oral; Duration: 5 Days Active Ibuprofen 600 MG Tablet Oral; Duration: 7 Days Active Tamsulosin HCl 0.4 MG Capsule TAKE 1 CAPSULE BY MOUTH EVERY DAY 30 minutes after same meal each day until stone passess Oral; Duration: 10 Days Active Pentoxifylline Activ e Flonase Allergy Relief 50 MCG/ACT Suspension 1 spray in each nostril Nasally Once a day; Duration: 1 month Active Desvenlafaxine Succinate ER 50 MG Tablet Extended Release 24 Hour TAKE 1 TABLET BY MOUTH EVERY DAY; Duration: 30 Active Immunizations Vaccine Route Administration Date Status Comme nts Influenza 3+ PRIVATE IM Intramuscular 07/18/2020 Administe red Influenza 3+ PRIVATE IM Intramuscular 07/31/2021 Administe red Influenza 3+ PRIVATE IM Intramuscular 06/26/2023 Administe red MODERNA IM Intramuscular 12/07/2020 Administered MODERNA IM Intramuscular 01/04/2021 Administered MODERNA IM Intramuscular 08/16/2021 Administered Social History Tobacco Use: Social History Observation Description Date Details (start date - stop date) Former Smoker NA - NA Sex Assigned At : Social History Observation Description Sex Assigned At Male Social History General Social Info Question Answer Notes Transition of Care: ER/UC/hospital since last office v isit? No Specialist seen since last office visit? No Depression Screening (PHQ-9): Little int erest or pleasure in doing things Several days Feeling down, depressed, or hopeless Not at all Trouble falling or staying asleep, or sleeping t oo much Several days Feeling tired or having little energy Not at all Poor appetite or overeating Not at all Feeling bad about yourself-o r that you are a failure or have let yourself or your family down Several days Trouble concentrating on thi ngs, such as reading the newspaper or watching television Not at all Moving or speaking so slowly that other people could have noticed. Or the opposite being so fidgety or restless that you have been moving around a lot more than usual Not at all Thoughts that you would be b addie off , or of hurting yourself in some way Not at all Total Score 3 Intepretation Minimal Depression Substance abuse/mental health issues of patient/family Patient - Caffeine Use,Stress/Anxiety Ability to understand healthcare/treatment Patient: Good Social/Support Concerns: Patient: No Behaviors affecting health Poor/Risky Behaviors: Chavo cates- Communication Barrier: Language Barrier?: No Drug/Alcohol: Social Info Question Answer Notes AUDIT-C (Standard) Did you have a drink containing alcohol in the past year? Yes How often did you have a drink containing alcohol in the past year? Monthly or less (1 point) How many drinks did you have on a typical day when you were drinking in the past year? 3 or 4 drinks (1 point) How often did you have six or more drinks on one occasion in the past year? Less than monthly (1 point) Points 3 Interpretation Negative Tobacco Use: Social Info Question Answer Notes Tobacco Control (Standard) Tobacco use: Former smoker How long has it been since you last smoked? 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) Active confirmed Problem Chronic pain (21059006) Other chronic pain (G89.29) Active confirmed Problem Peripheral vascular disease (942486761) PVD (peripheral vascular disease) (I73.9) Active confirmed Problem COPD - Chronic obstructive pulmonary disease (88587567) Chronic obstructive pulmonary disease, unspecified COPD type (J44.9) Active confirmed Problem Gastroesophageal reflux disease (404000120) Gastroesophageal reflux disease, esophagitis presence not specified (K21.9) Active confirmed Problem Hyperlipidaemia (14223580) Hyperlipidemia, unspecified hyperlipidemia type (E78.5) Active confirmed Problem Erectile dysfunction (disorder) (109379025) Erectile dysfunction, unspecified erectile dysfunction type (N52.9) Active confirmed Problem Kidney stone (59755529) Kidney stone (N20.0) Active confirmed Problem Moderate recurrent major depression (28968900) Moderate episode of recurrent major depressive disorder (F33.1) Active confirmed Problem Episodic mood disorder (07257699463079) Episodic mood disorder (F39) Active confirmed Problem Lumbosacral spondylosis without myelopathy (38600808) Osteoarthritis of lumbar spine, unspecified spinal osteoarthritis complication status (M47.816) Active confirmed Problem Bilateral tinnitus (4870807703578) Bilateral tinnitus (H93.13) Active confirmed Problem Pure hyperglyceridemia (968031387) High blood triglycerides (E78.1) Active confirmed Problem Atrophie nadia (L90.8) Active confirmed Vital Signs Heart Rate 88 /min 06/07/2025 Temperature 97.7 degrees Fahrenheit 06/07/2025 Respiratory Rate 20 /min 06/07/2025 Oximetry 95 % 06/07/2025 Blood pressure diastolic 81 mm Hg 06/07/2025 Height 6ft 2 in in 06/07/2025 Blood pressure systolic 114 mm Hg 06/07/2025 Weight 239.6 lbs 06/07/2025 BMI 30.76 kg/m2 06/07/2025 Encounters Encounter Location Date Provider Diagnosis [address] [address] 08/03/2024 Alejandra Edmonds PVD (peripheral vasc ular disease) I73.9 ; Chronic obstructive pulmonary disease, unspecified COPD type J44.9 ; Atrophie nadia L90.8 and Moderate episode of recurrent major depressive disorder F33.[address] [address] 11/04/2024 Alejandra Edmonds Vitamin D deficiency , unspecified E55.9 ; Hyperlipidemia, unspecified hyperlipidemia type E78.5 and PVD (peripheral vascular disease) I73.9 [facility] [address] [place] [address] 02/01/2025 Alejandra Edmonds Chronic obstructive pulmonary disease, unspecified COPD type J44.9 ; Primary insomnia F51.01 ; Hyperlipidemia, unspecified hyperlipidemia type E78.5 ; PVD (peripheral vascular disease) I73.9 ; Moderate episode of recurrent major depressive disorder F33.1 ; Vitamin D deficiency, unspecified E55.9 and Atrophie nadia L90.[address] [address] 05/10/2025 [facility] PVD (peripheral vasc ular disease) I73.9 ; Chronic obstructive pulmonary disease, unspecified COPD type J44.9 ; Other chronic pain G89.29 ; Vitamin D deficiency, unspecified E55.9 ; High blood triglycerides E78.1 and Encounter for prostate cancer screening Z12.5 [facility] [address] [place] [address] 06/07/2025 [facility] Kidney stone N20.0 [facility] [address] [address] 07/14/2025 [place] [address] [place] [address] 07/29/2024 [place] [address] [place] [address] 08/09/2024 [facility] Atrophie nadia L90 .8 [facility] [address] [place] [address] 08/16/2024 [place] [address] [address] 08/24/2024 [place] [address] [place] [address] 09/15/[address]24 [place] [address] [place] [address] 10/15/2024 [place] [address] [place] [address] 11/05/2024 [facility] Hyperlipidemia, unspecified hyperlipidemia type E78.5 [facility] [address] [place] [address] 11/16/2024 [place] [address] [place] [address] 11/24/2024 [place] [address] [place] [address] 12/10/2024 [facility] [address] [place] [address] 12/13/2024 [facility] [address] [place] [address] 12/28/2024 [facility] [address] [place] [address] 01/14/2025 [place] [address] [place] [address] 02/04/2025 [facility] [address] [place] [address] 02/09/2025 [place] [address] [place] [address] 03/01/2025 [place] [address] [place] [address] 03/10/2025 [place] [address] [place] [address] 03/15/2025 [place] [address] [place] [address] 03/23/2025 [place] [address] [place] [address] 05/26/2025 [place] [address] [place] [address] 06/08/2025 [place] [address] [place] [address] 06/14/2025 [place] [address] [place] [address] 06/17/2025 [place] [address] [place] [address] 07/05/2025 [facility] Other chronic pain G89.29 Assessments Encounter Date Diagnosis (ICD Code) Assessment Notes Treatment Notes Treatment Clinical Notes Section Notes 11/05/2024 Hyperlipidemia, unspecified hyperlipidemia type (ICD-10 - E78.5) 08/09/2024 Atrophie nadia (ICD-10 - L90.8) 11/04/2024 Vitamin D deficiency, unspecified (ICD-10 - E55.9) Will check Vit D level, continue Vitamin D replacement as advised. Discussed diet high in Vit D, also 10-15 minutes of direct sunlight is the best source of Vit D. 11/04/2024 Hyperlipidemia, unspecified hyperlipidemia type (ICD-10 - E78.5) lipid panel every 3-6 months with CMP to monitor liver and renal function, adjust medications accordingly. Discussed a low chol diet. Enc moderate daily exercise. If you develop any muscle cramping, leg cramps/pain, intolerance to medication please RTO. 02/01/2025 Chronic obstructive pulmonary disease, unspecified COPD type (ICD-10 - J44.9) COPD stable, continue medications as prescribed. Smoking cessation is encouraged. CP/pressure/sob, cough with fever, chills ER, 911 05/10/2025 PVD (peripheral vascular disease) (ICD-10 - I73.9) pt requested medication refills today, refills sent per request 05/10/2025 Chronic obstructive pulmonary disease, unspecified COPD type (ICD-10 - J44.9) COPD stable, continue medications as prescribed. Smoking cessation is encouraged. CP/pressure/sob, cough with fever, chills ER, 911 08/03/2024 PVD (peripheral vascular disease) (ICD-10 - I73.9) continue medication, enc moderate walking. Pt is non smoker. 06/07/2025 Kidney stone (ICD-10 - N20.0) Patient reports persistent kidney stone pain rated at 6 out of 10. Recent episode of feeling unwell and appearing pale. Possible blood in urine noted. Recent ER visit for kidney stone; received stronger pain medication. Awaiting urology appointment for further management. Patient is pushing fluids and using a strainer to collect stone if passed. - Refilled Percocet to manage pain until urology appointment. - Ordered CBC to check white blood cell count. - Ordered renal function panel to assess kidney function. - Continue Soquel and hydrocodone as prescribed for pain. - Refilled Mounjaro, famotidine, Flomax as requested. - Continue Singulair as prescribed. - Referral to Urology for kidney stone management. 07/05/2025 Other chronic pain (ICD-10 - G89.29) 05/10/2025 Other chronic pain (ICD-10 - G89.29) You are being prescribed a control substance. These can be habit forming and will be used for a short period a time. Refills will be determined based on symptoms. Do not mix these medications with alcohol, do not share these medications, do not sell these medication, do not drive or operate heavy machinery while taking these medications. OARRS report was reviewed. No misuse or abuse is noted. Pt verbalizes understanding. 08/03/2024 Chronic obstructive pulmonary disease, unspecified COPD type (ICD-10 - J44.9) COPD stable, continue medications as prescribed. Smoking cessation is encouraged. CP/pressure/sob, cough with fever, chills ER, 911 11/04/2024 PVD (peripheral vascular disease) (ICD-10 - I73.9) stable, continue medications. 02/01/2025 Primary insomnia (ICD-10 - F51.01) good sleep hygiene discussed. Avoid stimulants such as tv, electronic, exercises before bed. Relaxation techniques also discussed. pt enc to take 5mg to 10 mg melatonin. If symptoms persist will discuss prescription sleep aides 08/03/2024 Atrophie nadia (ICD-10 - L90.8) stable, take medication as prescribed, followed by podiatry as well. No recent sores 02/01/2025 Hyperlipidemia, unspecified hyperlipidemia type (ICD-10 - E78.5) lipid panel every 3-6 months with CMP to monitor liver and renal function, adjust medications accordingly. Discussed a low chol diet. Enc moderate daily exercise. If you develop any muscle cramping, leg cramps/pain, intolerance to medication please RTO. 05/10/2025 Vitamin D deficiency, unspecified (ICD-10 - E55.9) Will check Vit D level, continue Vitamin D replacement as advised. Discussed diet high in Vit D, also 10-15 minutes of direct sunlight is the best source of Vit D. 08/03/2024 Moderate episode of recurrent major depressive disorder (ICD-10 - F33.1) Continue medication, potential side effects were discussed as well as proper administration of medication. Pt verbalizes understanding. Pt is aware not to stop medication suddenly and to come to office to be weaned down, abrupt discontinuation can cause withdrawal symptoms. Stable mood today, no c/o SI/HI, if feelings occur pt to call 911/ER. Discussed coping mechanisms such as exercise, group therapy, and counseling. 05/10/2025 High blood triglycerides (ICD-10 - E78.1) lipid panel every 3-6 months with CMP to monitor liver and renal function, adjust medications accordingly. Discussed a low chol diet. Enc moderate daily exercise. If you develop any muscle cramping, leg cramps/pain, intolerance to medication please RTO. 02/01/2025 PVD (peripheral vascular disease) (ICD-10 - I73.9) continue with chol and bp control. 05/10/2025 Encounter for prostate cancer screening (ICD-10 - Z12.5) due for annual screening via blood test, discussed prostate cancer is important, if caught early has a high cure rate. 02/01/2025 Moderate episode of recurrent major depressive disorder (ICD-10 - F33.1) Continue medication, potential side effects were discussed as well as proper administration of medication. Pt verbalizes understanding. Pt is aware not to stop medication suddenly and to come to office to be weaned down, abrupt discontinuation can cause withdrawal symptoms. Stable mood today, no c/o SI/HI, if feelings occur pt to call 911/ER. Discussed coping mechanisms such as exercise, group therapy, and counseling. 02/01/2025 Vitamin D deficiency, unspecified (ICD-10 - E55.9) Will check Vit D level, continue Vitamin D replacement as advised. Discussed diet high in Vit D, also 10-15 minutes of direct sunlight is the best source of Vit D. 02/01/2025 Atrophie nadia (ICD-10 - L90.8) pt requested medication refills today, refills sent per request 02/01/2025 Other Body Mass Index : Care Instructions material was printed 06/07/2025 Other Body Mass Index : Care Instructions material was published, Body Mass Index: Care Instructions material was printed Plan Of Treatment Next Appt Details Provider Name:Alejandra Edmonds, 08/09/2025 02:30:00 PM, [address] [place], [address], Insurance Providers Payer Name Payer Address Payer Phone Subscriber Number Group Number Insured Name Patient Relationship to Insured Coverage Start Date Coverage End Date MEDICARE CGS 1 [facility] [place] [id number] HUI VAUGHN Self - patient is the insured 1 MEDICAID [facility] [address] [place] [address] [id number] HUI VAUGHN Self - patient is the insured [address] [facility] CHP-termed 22 [address] [place] [address] [id number] [facility] HUI VAUGHN Self - patient is the insured 9 zMEDICAID ABD after [facility] CHP-termed 22 [address] [place] [address] [id number] HUI VAUGHN Self - patient is the insured 9 [employer] MEDICAID [place] [address] [place] [address] [id number] HUI VAUGHN Self - patient is the insured 2 Medical (General) History Medical History History ICD Code Depression, SAD Surgical History Surgery Date(Month/Year) ankle , see's laser surgery on left leg d/t DVT Butterfly procedure left foot-Dr. Pimentel rer 07/2018 LEFT ANKLE SURGERY;PIN REMOVAL 01/2022 [place] Reason [place] [facility] [place] 05/23/25 Blood Clot in Lung
--- OUTSIDE RECORDS SUMMARY | 2025-07-15 12:31 | XMS_ITS | Clinical Summary ---
Author Organization [facility] Address [address] [place], [place] [id number] Care Team Providers Care Truck Assembler Name Role Phone Alejandra Elder Unavailable Alejandra Edmonds PUBLIC HEALTH ANALYST Unavailable [phone] Alejandra Edmonds PUBLIC HEALTH ANALYST Primary Care Provider [phone] Niles Ho Unavailable [phone] Allergies No known active allergies Medications traMADol (ULTRAM) 50 mg tablet Take 50 mg by mouth as needed. 3 11/16/2017 Active sertraline (ZOLOFT) 25 mg tablet Take 25 mg by mouth once daily. Active simvastatin (ZOCOR) 10 mg tablet Take 30 mg by mouth daily at bedtime. Active ergocalciferol, vitamin D2, (VITAMIN D) 50,000 unit capsule Take 50,000 Units by mouth once each week. Active gabapentin (NEURONTIN) 400 mg capsule Take 400 mg by mouth three times daily. Active pentoxifylline (TRENTAL ORAL) Take 3 tablets by mouth once daily. Active pantoprazole DR (PROTONIX) 40 mg tablet Take 40 mg by mouth once daily. Active ibuprofen (MOTRIN) 400 mg tablet Take 400 mg by mouth every 6 hours as needed. Active HYDROcodone-effie taminophen (NORCO) 5-325 mg per tablet Take 1 tablet by mouth every 6 hours as needed for pain. Active Active Problems No known active problems Immunizations Immunization Administration Dates Next Due COVID-19 original vaccine, f ull dose, monovalent (MODERNA) 08/16/2021,01/04/2021,12/07/2020 Social History Tobacco Use Types Packs/Day Years Used Date Smoking Tobacco: Former Cigarettes Smokeless Tobacco: Never Area Deprivation Index Answer Date Kalen rded National Score (1-100), lower number is lower ri sk Not on file 09/04/2020 State Score (1-10), lower number is lower risk N ot on file 09/04/2020 Data from: https://www.neighborhoodatlas.medicine.[facility]/. Last address used for calculation Not on file 09/04/2020 Sex and Gender Information Value Date Recorded Sex Assigned at Not on file Legal Sex Male 9:01 AM EST Gender Identity Not on file Sexual Orientation Not on file Last Filed Vital Signs Vital Sign Reading Time Taken Comments Blood Pressure 135/94 08/20/2021 12:19 PM EST Pulse 96 08/20/2021 12:19 PM EST Temperature 30.3 C (86.6 F) 08/20/2021 12:19 PM EST Respiratory Rate 18 03/09/2018 9:45 AM EDT Oxygen Saturation 97% 08/20/2021 12:19 PM EST Inhaled Oxygen Concentration - - Weight 95.5 kg (210 lb 8 oz) 08/08/2021 2:59 PM EST Height 188 cm (6' 2 ) 08/08/2021 2:59 PM EST Body Mass Index 27.03 08/08/2021 2:59 PM EST Plan of Treatment Health Maintenance Due Date Last Done Comments Anxiety Screening 1981 Depression Screening 1981 HIV Screening 1981 Hepatitis C Screening 1981 DTaP,Tdap,Td Vaccine (1 - Tdap) [address] Colonography 02/09/2008 Cologuard (FIT-DNA) 02/09/2008 Colonoscopy 02/09/2008 Colorectal Cancer Screening 02/09/2008 Fecal Occult Blood 02/09/2008 Prostate Cancer Screening Discussion 02/09/2008 Sigmoidoscopy 02/09/2008 Pneumococcal Vaccine: 50+ (3 of 3 - PCV20 or PCV21) 07/11/2021 07/11/2016, 06/13/2015 Diabetes Screening 12/02/2021 12/02/2018 Covid-19 Vaccine (4 - 2024-2 6 season) 2025 08/16/2021, 01/04/2021, 12/07/2020 Influenza Vaccine (#1) 2025 , 05/30/2016, 05/23/2016, Additional history exists RSV Vaccine (1 - 1-dose 75+ series) 2038 Shingrix Vaccine Completed 01/18/2021, 10/03/2020 Procedures Procedure Name Priority Date/Time Associated Diagnosis Comments COMPREHENSIVE METABOLIC PANEL Routine 12/02/2018 12:10 PM EST Atrophie nadia from Last 3 Months or Most Recently Relevant to Health Maintenance Results * (ABNORMAL) COMP METABOLIC PANEL (12/02/2018 12:10 PM EST) Pathologist [facility] Protein, Total 7.6 6.3 - 8.0 g/dL 12/02/2018 5:02 PM EST [facility] Albumin 4.7 3.9 - 4.9 g/dL 12/02/2018 5:02 PM EST [facility] Calcium 9.6 8.5 - 10.2 mg/dL 12/02/2018 5:02 PM EST [facility] Bilirubin, Total 0.4 0.2 - 1.3 mg/dL 12/02/2018 5:02 PM EST [facility] Alkaline Phosphatase 73 38 - 113 U/L 12/02/2018 5:02 PM EST [facility] AST 21 14 - 40 U/L 12/02/2018 5:[address] [facility] Glucose 113(H) 74 - 99 mg/dL 12/02/2018 5:02 PM EST [facility] Comment: The [place] Diabetes Association (ADA) provides guidance for cutoff values for fasting glucose and random glucose. The ADA defines fasting as no caloric intake for at least 8 hours. Fasting plasma glucose results between 100 to 125 mg/dL indicate increased risk for diabetes (prediabetes). Fasting plasma glucose results greater than or equal to 126 mg/dL meet the criteria for diagnosis of diabetes. In the absence of unequivocal hyperglycemia, results should be confirmed by repeat testing. In a patient with classic symptoms of hyperglycemia or hyperglycemic crisis, random plasma glucose results greater than or equal to 200 mg/dL meet the criteria for diagnosis of diabetes. Reference: Standards of Medical Care in Diabetes 2016, [place] Diabetes Association. Diabetes Care. 2016.39(Suppl 1). BUN 18 9 - 24 mg/dL 12/02/2018 5:02 PM [facility] Creatinine 1.13 0.73 - 1.22 mg/dL 12/02/2018 5:02 PM [facility] Sodium 139 136 - 144 mmol/L 12/02/2018 5:02 PM [facility] Potassium 4.4 3.7 - 5.1 mmol/L 12/02/2018 5:02 PM [facility] Chloride 100 97 - 105 mmol/L 12/02/2018 5:02 PM [facility] CO2 26 22 - 30 mmol/L 12/02/2018 5:02 PM [facility] Anion Gap 13 9 - 18 mmol/L 12/02/2018 5:02 PM [facility] ALT 18 10 - 54 U/L 12/02/2018 5:02 PM [facility] eGFR- >60 12/02/2018 5:02 PM [facility] eGFR-All Other Races >60 . 12/02/2018 5:02 PM [facility] Comment: eGFR (Estimated GFR) Units of measure: mL/min/1.73 meters squared eGFR is derived from the reexpressed MDRD Study equation using the following parameters: serum creatinine, age, gender and race. The creatinine assay has been calibrated to be traceable to IDMS. An eGFR <60 mL/min/1.73m2 for >3 months is consistent with chronic kidney disease. Refer to KDOQI guidelines for clinical interpretation. In patients with unstable renal function, e.g. those with acute kidney injury, the eGFR may not accurately reflect actual GFR. Blood specimen (specimen) BLOOD SPECIMEN / Unknown 12/02/2018 12:10 PM EST 12/02/2018 12:13 PM EST us Silvino Levi III, MD LABORATORY Fi nal Result [facility] [address] [place] [address] [facility] [address] [place] [address] from Last 3 Months or Most Recently Relevant to Health Maintenance Insurance MEDICARE MEDICAID [place] Care Teams Truck Assembler Relationship Specialty Start Date End Date Alejandra Edmonds NP [address] [place] [address] PCP - General Family Medicine 12/02/18 Alejandra Elder Referring Wound Care 09/29/17 Alejandra Edmonds NP [address] [place] [address] Referring Family Medicine 11/13/18 Niles Ho [phone] [address] Referring Podiatry 02/17/19
--- OUTSIDE RECORDS SUMMARY | 2025-07-15 12:31 | XMS_ITS | Encounter Summary ---
Author Organization [facility] Address [address] [place] [address] Phone Care Team Providers Care Park Ranger Name Role Phone Alejandra Edmonds Primary Care Provider + Encounter Details Date Type Department Care Team ([facility] st Contact Info) Description 06/03/2023 Scanned Document [facility] [address] [place] [address] Conversion, Onbase Social History Tobacco Use Types Packs/Day Years Used Date Smoking Tobacco: Never Assessed Sex and Gender Information Value Date Recorded Sex Assigned at Not on file Legal Sex Male 2:48 PM EST Gender Identity Not on file Sexual Orientation Not on file documented as of this encounter Plan of Treatment Not on file documented as of this encounter Procedures Procedure Name Priority Date/Time Associated Diagnosis Comments OUTSIDE IMAGING SCAN 06/03/2023 documented in this encounter Results * OUTSIDE IMAGING SCAN (06/03/2023) Anatomical Region Laterality Modality Other Narrative 06/03/2023 Ordered by an unspecified provider. us Onbase Conversion OUTSIDE SCAN Final Result documented in this encounter Visit Diagnoses Not on filedocumented in this encounter Care Teams Park Ranger Relationship Specialty Start Date End Date Alejandra Edmonds APRN-CNP [address] [place] [address] PCP - General 11/11/22 documented as of this encounter
--- NOTE | 2025-07-15 12:35 | ECG_ITS ---
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 Measurements Intervals [place] Rate: 88 P: 44 LA: 162 QRS: 5 QRSD: 102 T: 143 QT: 334 QTc: 405 Interpretive Statements SINUS RHYTHM MINIMAL VOLTAGE CRITERIA FOR LVH, CONSIDER NORMAL VARIANT [MEETS CRITERIA IN ONE OF: R(aVL), S(V1), R(V5), R(V5/V6)+S(V1)] MODERATE T-WAVE ABNORMALITY, CONSIDER LATERAL ISCHEMIA [-0.1+ mV T WAVE IN I/aVL/V5/V6] Abnormal ECG No previous ECG available for comparison Electronically Signed On 07-15-2025 18:06:45 EDT by JONATHON CUELLAR M.D.
--- NOTE | 2025-07-15 14:18 | PM.PRESUREVA ---
History of Present Illness History of Present Illness Chief complaint: left ureteral stone Narrative: Mr. Jose Angel Villela is a pleasant 60-year-old male who presents with complaints of left flank pain with a diagnosis of left ureteral stone. He is to undergo cystoscopy, left retrograde, left ureteroscopy, thulium laser possible left stent placement with Dr. Harmon scheduled on July 21, 2025 Review of Systems ROS Narrative REVIEW OF SYSTEMS: Negative except as stated in HPI, ten or more systems reviewed. 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) use of anticoagulants (ICD-10) DVT (deep venous thrombosis) ?I82.409 - Acute embolism and thrombosis of unspecified deep veins of unspecified lower extremity (ICD-10) Hyperlipidemia ?E78.5 - Hyperlipidemia, unspecified (ICD-10) Arthritis ?M19.90 - Unspecified osteoarthritis, unspecified site (ICD-10) Back pain ?M54.9 - Dorsalgia, unspecified (ICD-10) Panic attacks ?F41.0 - Panic disorder [episodic paroxysmal anxiety] (ICD-10) Depression ?F32.A - Depression, unspecified (ICD-10) Anxiety ?F41.9 - Anxiety disorder, unspecified (ICD-10) Snores ?R06.83 - Snoring (ICD-10) Pulmonary embolism ?I26.99 - Other pulmonary embolism without acute cor pulmonale (ICD-10) Kidney stones ?N20.0 - Calculus of kidney (ICD-10) Seasonal allergies ?J30.2 - Other seasonal allergic rhinitis (ICD-10) Tachycardia ?R00.0 - Tachycardia, unspecified (ICD-10) Surgical History (Updated 07/15/25 @ 13:21 by Rossy Bateman) Status post sclerotherapy of varicose veins ?Z98.890 - Other specified postprocedural states (ICD-10) ?Z86.79 - Personal history of other diseases of the circulatory system (ICD-10) History of tonsillectomy ?Z90.89 - Acquired absence of other organs (ICD-10) History of colonoscopy ?Z98.890 - Other specified postprocedural states (ICD-10) History of ankle surgery ?Z98.890 - Other specified postprocedural states (ICD-10) Family History (Updated 07/15/25 @ 13:06 by Rossy Bateman) Other Family history of COPD (chronic obstructive pulmonary disease) Family history of coronary artery disease Family history of heart disease Family history of hypertension Family history of myocardial infarction Family history of skin cancer Family history of stroke Social History (Updated 07/15/25 @ 13:02 by Rossy Bateman) Within the past year, how often did you have a drink containing alcohol: 2-4 times a month Smoking status: Former smoker Non-prescribed substance use: denies use Previous occupational history: disabled Highest level of school completed/degree received: Associate degree: academic program Meds Home Medications and Allergies Home Medications ?Medication ?Instructions ?Recorded ?Confirmed ?Type atorvastatin 20 mg tablet 20 mg PO DAILY 07/15/25 07/15/25 History cariprazine 3 mg capsule (Vraylar) 3 mg PO Q24H 07/15/25 07/15/25 History cyclobenzaprine 10 mg tablet 10 mg PO DAILY 07/15/25 07/15/25 History desvenlafaxine succinate 50 mg 50 mg PO Q24H 07/15/25 07/15/25 History tablet,extended release 24 hr ergocalciferol (vitamin D2) 1,250 50,000 unit PO .weekly 07/15/25 07/15/25 History mcg (50,000 unit) capsule hydrocodone 5 mg-acetaminophen 325 1 tab PO Q6H PRN pain 07/15/25 07/15/25 History mg tablet hydroxyzine HCl 50 mg tablet 50 mg PO BEDTIME 07/15/25 07/15/25 History pentoxifylline 400 mg 400 mg PO Q12H 07/15/25 07/15/25 History tablet,extended release quetiapine 50 mg tablet 50 mg PO BEDTIME 07/15/25 07/15/25 History rivaroxaban 20 mg tablet (Xarelto) 20 mg PO Q24H 07/15/25 07/15/25 History tamsulosin 0.4 mg capsule 0.4 mg PO Q24H 07/15/25 07/15/25 History temazepam 30 mg capsule 30 mg PO DAILY 07/15/25 07/15/25 History Allergies Allergy/AdvReac Type Severity Reaction Status Date / Time No Known Drug Allergies Allergy Verified 07/15/25 12:50 Exam Narrative Exam Narrative: Constitutional: Awake, alert, comfortable, well-appearing, nontoxic, interactive, vital signs as charted Head: Normocephalic, atraumatic Eyes: Conjunctiva and lids normal to inspection, pupils normal ENT: Tympanic membranes pearly yusuf, nonerythematous, noninjected, naris patent, posterior oropharynx clear, oral mucosa moist Neck: Supple, normal appearance, normal range of motion, no meningeal signs, no lymphadenopathy Respiratory: No respiratory distress, breath sounds clear Cardiovascular: Regular rate and rhythm, strong and regular heart tones Abdomen: Nontender, normal bowel sounds, soft, left CVA tenderness Musculoskeletal: Normal gait, no swelling or edema Skin: No rashes or induration, no lesions, only visible skin inspected Neuro: No neurological deficits, normal sensation Psychiatric: Oriented ?3, normal affect Assessment and Plan Assessment and Plan (1) Left ureteral stone: Plan Mr. Villela is scheduled for cystoscopy left retrograde left ureteroscopy thulium laser possible left stent placement with Dr. Harmon on July 21, 2025
[2025-07-15 14:26] LABS: INR 1.06; Partial Thromboplastin Time 27.0 sec (22.3-36.2); Prothrombin Time 11.2 sec (9.0-11.6)
== END 2025-07-15 12:22 | disposition home or self-care (01) ==
LOC: PST 12:26
PROVIDERS: Visit Provider Urology
DX: Z01.810 Encounter for preprocedural cardiovascular examination (principal); Z01.812 Encounter for preprocedural laboratory examination; N20.1 Calculus of ureter
CPT/HCPCS: 36415; 85610; 85730; 93005; G0463

== ENCOUNTER 2025-08-04 12:37 | Outpatient (OUT) | payer MEDICARE, MEDICAID, SELFPAY ==
--- OUTSIDE RECORDS SUMMARY | 2020-03-02 10:00 | XMS_ITS | Continuity of Care Document ---
Author Organization [facility] Address [address] [place] [address] Phone Care Team Providers Care Animal Pathology Teacher Name Role Phone Kvng Savage Unavailable Unavailable Allergies, Adverse Reactions, Alerts Substance Reaction Status Criticality No Known Allergies Active No Inform ation Medications Medication Instructions Dosage Effective Dates (start - stop) Status Comments Cymbalta 60 mg capsule,delayed release take 1 capsule by oral route every day - Active Procedures Procedure Date Covid Testing [facility] Covid Testing [facility] Resin Composite 3s; Posterior 7 Resin Composite 3s; Posterior 7 Prophylaxis Adult Oral Hygiene Instruction Intraoral-complete Series (bw) 17 Comp Oral Eval New/estab Patient 2016 Oral Hygiene Instruction Results Test Name Date and Time Measure Units Reference Range Abnormal Flag Status Comments Panel Description: SARS-CoV-2, TAHIRA Final SARS-CoV- 2, TAHIRA 020 09:04:00 Not Detected Not Detected Final This test was developed and its performance characteristics determinedby [employer]. This test has not been FDA cleared orapproved. This test has been authorized by FDA under an Emergency UseAuthorization (EUA). This test is only authorized for the duration oftime the declaration that circumstances exist justifying theauthorization of the emergency use of in vitro diagnostic tests fordetection of SARS-CoV-2 virus and/or diagnosis of COVID-19 infectionunder section 564(b)(1) of the Act, 21 U.S.C. 360bbb-3(b)(1), unlessthe authorization is terminated or revoked sooner.When diagnostic testing is negative, the possibility of a falsenegative result should be considered in the context of a patient'srecent exposures and the presence of clinical signs and symptomsconsistent with COVID-19. An individual without symptoms of COVID-19and who is not shedding SARS-CoV-2 virus would expect to have anegative (not detected) result in this assay.Performed by:[facility] ([facility]) Advance Directives Directive Yes / No Effective Date File Name No Information Encounters Encounter Description Practice Location Reason(s) For Visit Diagnoses Date Provider Providers Copied on Encounter [facility], [address] [place] [address], [id number], [place] tel:[phone] COVID ECHD Encounter for screening for other viral diseases Artem HILL Kvng. [address] [place] [address], [id number], [place]. tel:[phone] [facility], [address] [place] [address], [id number], [place] tel:[phone] COVID ECHD En[facility] screening [facility] other [facility] diseases [facility] [address] [place] [address], [id number], [place]. tel:[phone] [facility], [address] [place] [address], [id number], [place] tel:[phone] Dental Clinic Encounter for screening for dental disorders Jhon Roman. [address] [place] [address], [id number], [place]. tel:[phone] [facility], [address] [place] [address], [id number], [place] tel:[phone] Dental Clinic prophy (chief complaint) Encounter for screening for dental disorders Ronak Elise. [address] [place], [address], [place]. tel:[phone] [facility], [address] [place] [address], [id number], [place] tel:[phone] Dental Clinic Dental New (chief complaint)D ental New (chief complaint) Encounter for screening for dental disorders Ronak Elise. [address] [facility], [place], [address], [place]. tel:[phone] Family History Family Member Type Diagnosis Age At Onset Mother Problem (finding) Alive and well Mother Problem (finding) Cardiovascular disease Father Problem (finding) Father Problem (finding) Father went [facility] after having collapsed lung Payers Payer name Insurance type Covered republican ID Authoriza tion(s) No Information Social History Type Description Quantity Date Captured Comments Alcohol Use Details Unknown Caffeine Use Details Unknown Tobacco Use Status No Information Smoking Status No Information Sex Male Sexual Orientation Lesbian, snowden or homosexual Gender Identity Male Chief Complaint And Reason For Visit No Information Reason For Referral Reason For Referral No Information History Of Present Illness Encounter Date Complaint History Of Prese nt Illness prophy Dental New Dental New Dental New Dental New Functional Status Date Functional Assessmen t No Information Instructions Date Instruction Additional Infor mation No Information Assessments Type Assessment Date assessment Encounter for screening for othe r viral diseases Patient Care Teams Name Effective Dates (start - stop) Status Members No Information
--- OUTSIDE RECORDS SUMMARY | 2025-01-10 08:30 | XMS_ITS ---
Author Organization [facility] Address [address] [place] [address] Care Team Providers Care Lean Manufacturing Leader Name Role Phone Alejandra Edmonds Primary Care Provider [phone] Li Junior [phone] REASON FOR VISIT BH F/U rescheduled from 01/11 Social History Sex Assigned At : Social History Observation Description Sex Assigned At Male Encounters Encounter Location Date Provider Diagnosis [facility] [address] [place] [address] 01/10/2025 Li Quiñones Plan Of Treatment Next Appt Details Provider Name:Alejandra Edmonds, 08/09/2025 02:30:00 PM, [facility] E [facility], [place], [address], Progress Notes * HUI VAUGHN PDOB:[birth year] (60 yo M)Acc No.[id number]:01/10/2025 Behavioral Health Patient: Donnie HUI ROBLES Provider:?Li QuiñonesDOB:1965???Age:59 Y ???Sex:MaleDate:01/10/2025Phone:[phone]:[address] [place], [place] [id number]:Alejandra Edmonds Subjective: * Chief Complaints: * B H F/U rescheduled from 01/11 * Electronic signature of CATHRYN So FNP on 08/04/2025 at 12:39 PM EST Sign off status: Pending * Appointment Provider: Keri Quiñones Date: 0 01/10/2025 Generated for Printing/Faxing/eTransmitting on:?08/04/2025 12:39 PM EST
--- OUTSIDE RECORDS SUMMARY | 2025-01-11 09:00 | XMS_ITS ---
Author Organization [facility] Address [address] [place] [address] Care Team Providers Care Forest Officer Name Role Phone Alejandra Edmonds Primary Care Provider [phone] Li Junior [phone] REASON FOR VISIT 1 year f/u Social History Sex Assigned At : Social History Observation Description Sex Assigned At Male Encounters Encounter Location Date Provider Diagnosis [facility] [address] [place] [address] 01/11/2025 Li Quiñones Plan Of Treatment Next Appt Details Provider Name:Alejandra Edmonds, 08/09/2025 02:30:00 PM, [address] [facility] [place], [address], Progress Notes * HUI VAUGHN PDOB:[birth year] (60 yo M)Acc No.[id number]:01/11/2025 Behavioral Health Patient: Donnie HUI ROBLES Provider:?Li QuiñonesDOB:1965???Age:59 Y ???Sex:MaleDate:01/11/2025Phone:[phone]:[address] [place], [place]-[address]Pcp:Alejandra Edmonds Subjective: * Chief Complaints: * 1 year f/u * Electronic signature of CATHRYN So FNP on 08/04/2025 at 12:40 PM EST Sign off status: Pending * Appointment Provider: Keri Quiñones Date: 0 01/11/2025 Generated for Printing/Faxing/eTransmitting on:?08/04/2025 12:40 PM EST
--- OUTSIDE RECORDS SUMMARY | 2025-02-03 05:00 | XMS_ITS ---
Author Organization [facility] Address [address] [place] [address] Care Team Providers Care Sternman Name Role Phone Alejandra Edmonds Primary Care Provider Ishmael Li Wood [phone] REASON FOR VISIT 3month f/u Social History Sex Assigned At : Social History Observation Description Sex Assigned At Male Encounters Encounter Location Date Provider Diagnosis [address] [address] 02/03/2025 Alejandra Edmonds Plan Of Treatment Next Appt Details Provider Name:Alejandra Edmonds, 08/09/2025 02:30:00 PM, [address] [place] [address], [address], Progress Notes * HUI VAUGHN PDOB:[birth year] (60 yo M)Acc No.[id number]:02/03/2025 Progress Notes Patient: Donnie HUI ROBLES Provider:?Alejandra Edmonds NPDOB:1965???Age: 59 Y???Sex:MaleDate:02/03/2025Phone:[phone]:[address] [place] [address] Subjective: * Chief Complaints: * 3 month f/u * Electronic signature of Alejandra Edmonds CNP on 08/04/2025 at 12:41 PM ESTSign off status: Pending * Appointment Provider: Uche Edmonds NP Date: 0 02/03/2025 Generated for Printing/Faxing/eTransmitting on:?08/04/2025 12:41 PM EST
--- OUTSIDE RECORDS SUMMARY | 2025-05-05 05:00 | XMS_ITS ---
Author Organization [facility] Address [address] [place] [address] Care Team Providers Care Health Economist Name Role Phone Alejandra Edmonds Primary Care Provider Quiñones Li Wood [phone] REASON FOR VISIT 3month f/u Social History Sex Assigned At : Social History Observation Description Sex Assigned At Male Encounters Encounter Location Date Provider Diagnosis [address] [address] 05/05/2025 Alejandra Edmonds Plan Of Treatment Next Appt Details Provider Name:Alejandra Edmonds, 08/09/2025 02:30:00 PM, [address] [place] [address] [place], [address], Progress Notes * HUI VAUGHN PDOB:[birth year] (60 yo M)Acc No.[id number]:05/05/2025 Progress Notes Patient: Donnie HUI ROBLES Provider:?Alejandra Edmonds NPDOB:1965???Age: 60 Y???Sex:MaleDate:05/05/2025Phone:[phone]:[address] [place] [address] Subjective: * Chief Complaints: * 3 month f/u Billing Information: * Procedure Codes: * Electronic signature of Alejandra Edmonds CNP on 08/04/2025 at 12:40 PM ESTSign off status: Pending * Appointment Provider: Uche Edmonds NP Date: 0 05/05/2025 Generated for Printing/Faxing/eTransmitting on:?08/04/2025 12:40 PM EST
--- OUTSIDE RECORDS SUMMARY | 2025-07-21 14:00 | XMS_ITS | Encounter Summary ---
Author Organization [facility] Address [address] 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 Name Role Phone Alejandra Edmonds Primary Care Provider + Reason for Referral * Cardiovascular (Routine) - AuthorizedSpecialtyDiagnoses / ProceduresReferred By ContactReferred To Contact Diagnoses Pre-operative clearance Procedures ECG 12 Lead Anette Kim APRN-CNP [address] [facility], [place] [id number] Phone: tel: fax: Referral IDStatusReasonStart DateExpiration DateVisits RequestedVisits [id number]/23/202510/23/202611 Reason for Visit * ReasonCommentsPre-op ClearanceAbnormal EKG lithotripsy * Cardiovascular (Routine) - AuthorizedSpecialtyDiagnoses / ProceduresReferred By ContactReferred To Contact Diagnoses Pre-operative clearance Procedures ECG 12 Lead Anette Kim APRN-CNP [address] [facility], [address] [address] Phone: tel: fax: Referral IDStatusReasonStart DateExpiration DateVisits RequestedVisits [id number]/23/202510/23/202611 Encounter Details DateTypeDepartmentCare Team (Latest Contact Info)Masdzojahao53/23/2025 3:00 PM EDTOffice Visit [facility] [address] [facility] [address] [place] [phone] Anette Kim APRN-CNP [facility] [facility], [address] [place] [address] Pre-operative clearance (Primary Dx) Discharge Disposition: Home Social History Tobacco UseTypesPacks/DayYears UsedDateSmoking Tobacco: [id number] Started: 1980Smokeless Tobacco: NeverAlcohol UseStandard Drinks/WeekCommentsNot Currently0 (1 standard drink = 0.6 oz pure alcohol)socialPHQ-2AnswerDate RecordedPatient Health Questionnaire-2 [id number] and Gender InformationValueDate RecordedSex Assigned at BirthNot on fileLegal SexMale 11/11/2022 2:48 PM ESTGender IdentityNot on fileSexual OrientationNot on file documented as of this encounter Last Filed Vital Signs Vital SignReadingTime TakenCommentsBlood Yhgargou997/8607/21/2025 3:12 PM EDT Guock4247/23/2025 3:12 PM EDTTemperature--Respiratory Rate--Oxygen Saturation-- Inhaled Oxygen Concentration--Nwagtt899 kg (249 lb)07/21/2025 3:12 PM EDTHeight 188 cm (6' 2 )07/21/2025 3:12 PM EDTBody Mass Index31.9707/21/2025 3:12 PM EDT documented in this encounter Functional Status * BPAnswerDate of VpeyubggixAkerfs617/8607/21/2025 3:12 PM EDTasneem Hills CMA * PulseAnswerDate of HvmhbixbmiBteoiv3860 3:12 PM EDTasneem Hills CMA * Communicable Disease ScreeningQuestionAnswerDate of AssessmentAuthorDo you have any of the following new or worsening symptoms?None of these07/21/2025 2:49 PM EDThalia Davalos documented as of this encounter Patient Instructions * Patient Instructions* RADHA West - 07/21/2025 3:00 PM EDT Please bring all medicines, vitamins, and herbal supplements with you when you come to the office. Prescriptions will not be filled unless you are compliant with your follow up appointments or have a follow up appointment scheduled as per instruction of your physician. Refills should be requested at the time of your visit. PLAN: Through informed decision making process incorporating patients unique circumstances, the followingtreatment plan will be initiated: 1. Prescription drug management of cardiovascular medication for efficacy, adherence to treatment, side effect assessment and polypharmacy. Current treatment clinically warranted and to continue without modifications. 2. Return for follow-up; in the interim, contact the office if new symptoms arise. Cardiology as needed EKG done in office today documented in this encounter Progress Notes * RADHA West - 07/21/2025 3:00 PM EDT Chief Complaint I need to have surgery for these kidney stones Reason for Visit Patient presents to the office today for outpatient follow-up for cardiac risk stratification. Last evaluated in clinic by Dr. Alex June 2023. Presents today ambulatory with steady gait. Accompanied by spouse Patient denies any hospitalizations or significant changes to interval medical history since last office follow-up. History of Present Illness Patient is a pleasant 60-year-old gentleman who presents to the office with no voiced cardiovascular complaints. He was evaluated with Dr. Alex June 2023 due to abnormal EKG (lateral T wave inversion) with a subsequent perfusion study showing no evidence of ischemia or infarct. Primary prevention was optimally addressed by PCP. He was then to follow-up with cardiology on an as needed basis. Patient denies any recent hospitalization. Denies any additional cardiovascular follow-up or testing. Patient presents to [facility] [place] to obtain cardiac risk stratification prior to a lithotripsy. Surgeon: Dr. Harmon Planned date: August 04, 2025. Prior cardiovascular history: May 2023 MPI no ischemia, no infarct. LVEF 64%. Transischemic dilatation ratio 1.09 November 2022 TTE LVEF 55 to 6%. No valvular heart disease. No documented history of dysrhythmia Baseline abnormal EKG with lateral T wave inversion Patient presents to the office today with activity level > 4 METS. Daily activity includes ADL, walking [place] Total DASI: 36.7 METS: 7.25 EKG in office: Normal sinus rhythm, T wave inversion lateral leads consistent with prior since 2022 ACC/AHA guidelines: 1. Major clinical markers: -Acute coronary syndrome or [place] within 30 days: No -Decompensated heart failure: No -Significant arrhythmia: No -Severe valvular heart disease: No 2. Intermediate clinical markers -History of ischemic heart disease (prior [place], current chest pain secondary to ischemia, use of nitrates or EKG changes): No -Compensated/prior heart failure: No -Diabetes requiring insulin: No -Renal insufficiency with creatinine greater than 2: No 3. Minor clinical markers: -Age greater than or equal to 70: No -Abnormal EKG: Yes -Rhythm other than sinus rhythm: No -Low functional capacity: No -Prior CVA: No -Uncontrolled hypertension: No Surgery specific risk: Low risk urologic procedure According to ACC/AHA guidelines, a patient with daily activity greater than 4 METS proceeding with low risk procedure may proceed without additional cardiovascular testing. Also, patient has favorable cardiovascular testing within the last 2 years without any change in symptoms. AUGIE Revised Cardiac Risk Index: Very low 0.4% risk Concomitant medication review: No current antiplatelet usage or DOAC. Review of Systems Cardiovascular: Negative for chest pain, dyspnea on exertion, irregular heartbeat, leg swelling, near-syncope, orthopnea, palpitations, paroxysmal nocturnal dyspnea and syncope. Visit Vitals BP 126/86 (BP Location: Left arm, Patient Position: Sitting) Pulse 90 Ht 1.88 m (6' 2 ) Wt 113 kg (249 lb) BMI 31.97 kg/m?? Smoking Status Former BSA 2.43 m?? Physical Exam Vitals and nursing note reviewed. Constitutional: Appearance: Normal appearance. Cardiovascular: Rate and Rhythm: Normal rate and regular rhythm. Heart sounds: Normal heart sounds. Pulmonary: Effort: Pulmonary effort is normal. Breath sounds: Normal breath sounds. Musculoskeletal: Cervical back: Full passive range of motion without pain. Right lower leg: No edema. Left lower leg: No edema. Skin: General: Skin is cool. Neurological: Mental Status: He is alert and oriented to person, place, and time. Psychiatric: Attention and Perception: Attention normal. Mood and Affect: Mood normal. Behavior: Behavior is cooperative. ALLERGIES: Patient has no known allergies. Current Outpatient Medications Medication Instructions acetaminophen (TYLENOL) 500 mg, As needed desvenlafaxine (Pristiq) 50 mg 24 hr tablet 1 tablet, Daily ergocalciferol (VITAMIN D2) 1.25 mg, Weekly fluticasone (Flonase) 50 mcg/actuation nasal spray 1 spray, Daily HYDROcodone-acetaminophen ([place]) 5-325 mg tablet 1 tablet hydrOXYzine HCL (Atarax) 50 mg tablet 1 tablet, Nightly ibuprofen 400 mg tablet 1 tablet, 3 times daily PRN pentoxifylline (Trental) 400 mg ER tablet 1 tablet, 3 times daily QUEtiapine (SEROquel) 50 mg tablet 1 tablet, 2 times daily rivaroxaban (Xarelto) 20 mg tablet 1 tablet, Daily simvastatin (ZOCOR) 10 mg, Nightly tamsulosin (FLOMAX) 0.4 mg, Daily temazepam (Restoril) 30 mg capsule 1 capsule, Nightly Vraylar 3 mg, Daily Assessment: A 60-year-old gentleman with no prior [place], valvular heart disease or congestive heart failure presents with 2022 perfusion study no ischemia or infarct and EKG with no changes, no change in overall functional capacity with daily activity greater than 4 METS. Adhering to ACC/AHA guidelines, patient may proceed with surgical procedure without additional cardiovascular testing. Plan: At this time, there be no prohibitive cardiovascular risk to proceed with surgical procedure. He will continue to follow-up with PCP for primary prevention Cardiology follow-up as needed. Anette Kim MSN, FINANCIAL SERVICES SALES REPRESENTATIVE-MAC OPERATOR, PMHNP-[facility] [place], [place] Please excuse any errors in grammar or translation related to this dictation. Voice recognition software was utilized to prepare this document. documented in this encounter Plan of Treatment Not on file documented as of this encounter Procedures Procedure NamePriorityDate/TimeAssociated DiagnosisCommentsECG 12-LEADRoutine 07/21/2025 3:00 PM EDT Pre-operative clearance documented in this encounter Results * ECG 12 Lead (07/21/2025 3:00 PM EDT)Specimen (Source)Anatomical Location / LateralityCollection Method / VolumeCollection TimeReceived Time Narrative CPACS - 07/26/2025 1:12 PM EDT Normal sinus rhythm, atrial abnormality (right atrial enlargement), inferior Q wave infarction pattern age indeterminant, incomplete left bundle branch block, abnormal ECG Authorizing ProviderResult TypeResult StatusAnette Kim APRN-CNPECG ORDERABLES Final ResultPerforming OrganizationAddressCity/State/ZIP CodePhone Number CPACS documented in this encounter Visit Diagnoses Diagnosis Pre-operative clearance- Primary Unspecified pre-operative examination documented in this encounter Additional Health Concerns AssessmentNoted TimeA fall risk assessment has been completed for the patient 07/03/2023 9:14 AM EDTdocumented as of this encounter Care Teams Team MemberRelationshipSpecialtyStart DateEnd Date Alejandra Edmonds APRN-MAC OPERATOR [address] [place] [id number] PCP - General11/11/22documented as of this encounter
--- OUTSIDE RECORDS SUMMARY | 2025-07-26 06:00 | XMS_ITS ---
Author Organization [facility] Address [address] [place] [address] Care Team Providers Care Photovoltaic Installation Technician Name Role Phone JenniAlejandra dotson Primary Care Provider Li Quiñones Nina [phone] Allergies No Known Allergies REASON FOR VISIT kidney pain Medications Medication SIG (Take, Route, Frequency, Duration) Notes Start Date End Date Status Ibuprofen 600 MG Tablet Oral; Duration: 7 Days ActiveTamsulosin HCl 0.4 MG CapsuleTAKE 1 CAPSULE BY MOUTH EVERY DAY 30 minutes after same meal each day until stone passess Oral; Duration: 10 DaysActive QUEtiapine Fumarate 50 MG TabletTAKE 1 OR 2 TABLETS BY MOUTH AT BEDTIME; Duration: 90ActiveAtorvastatin Calcium 20 MG Tablet1 tablet Orally Once a day; Duration: 90 daysActiveOndansetron 4 MG Tablet DisintegratingOral; Duration: 4 DaysActiveVitamin D (Ergocalciferol) 1.25 MG (89508 UT) CapsuleTAKE 1 CAPSULE BY MOUTH 1 TIME A WEEK; Duration: 84 daysActiveXarelto 20 MG TabletTAKE 1 TABLET BY MOUTH EVERY DAY; Duration: 30ActiveVraylar 3 MG CapsuleTAKE 1 CAPSULE BY MOUTH EVERY DAY; Duration: 30ActiveFlonase Allergy Relief 50 MCG/ACT Suspension1 spray in each nostril Nasally Once a day; Duration: 1 monthActivePentoxifyllineActive oxyCODONE HCl 5 MG Tablet 1 tablet Orally every 6 hours; Duration: 5 days As needed /5ActiveDesvenlafaxine Succinate ER 50 MG Tablet Extended Release 24 HourTAKE 1 TABLET BY MOUTH EVERY DAY; Duration: 30Active Cyclobenzaprine HCl 10 MG Tablet1 tablet Orally twice a day; Duration: 30 days 09/12/2023ctivehydrOXYzine HCl 50 MG TabletTAKE 1 TABLET BY MOUTH AT NIGHT FOR 30 DAYS.; Duration: 30ActiveHYDROcodone-Acetaminophen 5-325 MG Tablet 1 tablet Orally every 6 hrs; Duration: 30 days As needed /tiveTemazepam 30 MG Capsule1 capsule at bedtime Orally Once a day; Duration: 30 days5Active Social History Sex Assigned At : Social History Observation Description Sex Assigned At Male Social History Drug/Alcohol:Social InfoQuestionAnswerNotesAUDIT-C (Standard)Did you have a drink containing alcohol in the past year?Yes? How often did you have a drink containing alcohol in the past year?Monthly or less (1 point)? How many drinks did you have on a typical day when you were drinking in the past year?3 or 4 drinks (1 point)? How often did you have six or more drinks on one occasion in the past year?Less than monthly (1 point)Sbyhwn2TenujdzygbmsbbZcnkpjbs Problems Problem Type SNOMED Code ICD Code Onset Dates Problem Status W/U Status Risk Notes Problem History of pulmonary embolus (230118683) History of pulmonary embolus (PE) (Z86.711) Activeconfirmed Vital Signs Temperature 97.8 degrees Fahrenheit 07/26/20 25 Blood pressure systolic 116 mm Hg 07/26/20 25 Blood pressure diastolic 84 mm Hg 025 Heart Rate 113 /min 07/26/2025 Respiratory Rate 20 /min 07/26/2025 Height 6ft 2 in in 07/26/2025 Weight 248 lbs 07/26/2025 BMI 31.84 kg/m2 07/26/2025 Oximetry 96 % 07/26/2025 Encounters Encounter Location Date Provider Diagnosis [address] [address] 07/26/2025 Alejandra Spasic Kidney stone N20.0 a nd History of pulmonary embolus (PE) Z86.711 Assessments Encounter Date Diagnosis (ICD Code) Assessment Notes Treatment Notes Treatment Clinical Notes Section Notes 07/26/2025 Kidney stone (ICD-10 - N20.0) cardiac clearance ordered and completed, pt had a PE in November of 2022, at that time underwent cardiac history but he never f/u. HIs ECG for upcoming procedure showed ST changes suspcious for ischemia, therefore requested a clearance. He did see NOH and has low risk. He is medically cleared. He may stop is xeralto as directed by urology and restart when able07/26/2025History of pulmonary embolus (PE) (ICD-10 - Z86.711)ok to stop xeralto for procedure, restart as soon as recommended by urology. Plan Of Treatment Medication Medication Name Sig Start Date Stop Date Notes oxyCODONE HCl 5 MG Tablet 1 tablet Orall y every 6 hours; Duration: 5 days 07/26/2025 07/31/2025 Treatment Notes Assessment Notes Kidney stone cardiac clearance or dered and completed, pt had a PE in November of 2022, at that time underwent cardiac history but he never f/u. HIs ECG for upcoming procedure showed ST changes suspcious for ischemia, therefore requested a clearance. He did see NO and has low risk. He is medically cleared. He may stop is xeralto as directed by urology and restart when able History of pulmonary embolus (PE) ok to stop xeralto for procedure, restart as soon as recommended by urology. Next Appt Details Follow Up: prn, Reason: as darryn gastelum Provider Name:Alejandra Edmonds, 08/09/2025 02:30:00 PM, [address] [facility], [place], [address], History and Physical Notes * HPI (History of Present Illness) CategorySub-CategoryDetailNotesCategory NotesConstitutionalStevosman Amadou, a 60-year-old male, presented with persistent kidney stone pain rated at 6 out of 10, not fully relieved by medication. After a recent ER visit and stronger pain medication, he is awaiting urology follow-up, pushing fluids, and using a strainer to collect the stone if passed. Stone is not passable needs to have stent placed, this was postponed s/t needing cardiac clearance. Pt had not f/u with cardiology since January of 2023, his ECG for PAT was abnormal, therefore pt req to have cardiac clearance. Since postponned his surgery had to go to ER for pain management, they would not prescribe him oxycodone s/t being on norco for his chronic pain. He is in alot of pain. Examination CategorySub-CategoryDetailNotesCategory NotesGeneral ExaminationCARDIOVASCULAR: Regular rate and rhythm, S1/S2 are normal, tachycardiaRESPIRATORY:clear to auscultation bilaterally, good breath sounds bilaterally, no wheezes, rhonchi, rales. No cough.GASTROINTESTINAL:Abdomen Soft, active bowel sounds in all 4 quadrantsGENERAL APPEARANCE:alert and oriented, in no acute distress, pleasant, nontoxicSKIN:Warm, dry, and intact. No rashes or lesions noted.NEUROLOGIC EXAM: appropriate for agePERIPHERAL PULSES:radial pulses +2/4 bilaterally, posterior tibial pulses +2/4 bilaterallyCHEST:Chest expansion symmetricalMUSCULOSKELETAL: left CVA tendernessPSYCHgood eye contact, oriented to person, oriented to place, oriented to time, normal speech, appropriate mood and affect , normal speech FACE:pleasant, symmetrical, well appearingGeneralAAOx3, NAD Progress Notes * JOSE ANGEL TOBAR PDOB:[birth year] (60 yo M)Acc No.[id number]:07/26/2025 Progress Notes Patient: JOSE ANGEL PARSONS Provider:Rachna Edmonds NPDOB:1965???Age: 60 Y???Sex:MaleDate:07/26/2025Phone:[phone]:[address] [place], [place] [id number] Subjective: * Chief Complaints: * K idney pain * HPI: ???Constitutional:?Denies : .?Jose Angel Tobar, a 60-year-old male, presented with persistent kidney stone pain rated at 6 out of 10, not fully relieved by medication.? After a recent ER visit and stronger pain medication, he is awaiting urology follow-up, pushing fluids, and using a strainer to collect the stone if passed. Stone is not passable needs to have stent placed, this was postponed s/t needing cardiac clearance.? Pt had? not f/u with cardiology since January of 2023, his ECG for PAT was abnormal, therefore pt req to have cardiac clearance.? Since postponned his surgery had to go to ER for painmanagement, they would not prescribe him oxycodone s/t being on norco for his chronic pain.? He is in alot of pain. * ROS: ???General Review of Systems:?General?Denies fever, chills, weight loss.?Eyes?Denies vision changes, no double vision or blurry vision. .?HEENT?Denies sore throat, ear pain., Denies fevers , chills, Denies nasal congestion, or pressure, Denies hoarseness, change in voice, difficulty swallowing.?Cardiovascular?Denies chest pain, palpitations, exertional dyspnea.?Respiratory?Denies cough, dyspnea, wheezing, sputum production, hemoptysis.?Gastrointestinal?Denies abdominal pain, nausea, vomiting, diarrhea, or constipation. Denies blood in stool or changes in bowel habits..?Genitourinary?Denies urgency, frequency, dysuria, hem aturia.?Musculoskeletal?Denies joint pain, myalgias.?Dermatology?Denies rashes o r lesions.?Neurological?Denies any lightheadedness, dizziness, headache, new numbness or tingling in hands or feet. .?Psychiatric?Denies anxiety, depression, Denies suicidal ideation, Patient states feels safe at home, Mood stable per pt..?Endocrinologic?Denies polyuria, polydipsia, polyphagia.?Hem/Lymph ?Denies easy bruising, bleeding, swollen lymph nodes.?Allerg/Immun?Denies allergies or hay fever.? * Medical History: Depression, SAD Medical History Verified * Surgical History: ankle , see's ? laser surgery on left leg d/t DVT ? Butterfly procedure left foot-Dr. Saleh 07/2018? LEFT ANKLE SURGERY;PIN REMOVAL 01/2022? Surgical History verified.? * Hospitalization/Major Diagno stic Procedure: Blood Clot in Lung ? [facility] [place] Kidney stones 05/23/25? Hospitalization Verified.? * Family History: F ather: , diagnosed with Stroke. M other: alive, diagnosed with Heart Disease.?2 brother(s) , 1 sister(s) - healthy. . F amily History Verified.. * Social History: ???Drug/Alcohol:?AUDIT-C (Standard)?Did you have a drink containing alcohol in the past year??Yes ?How often did you have a drink containing alcohol in the past year?? Monthly or less (1 point) ?How many drinks did you have on a typical daywhen you were drinking in the past year??3 or 4 drinks (1 point) ?How often did you have six or more drinks on one occasion in the past year??Less than monthly (1 point) ?Points?3 ?Interpretation?Negative ???Social History Verified. * Medications: T akingPentoxifylline Flonase Allergy Relief 50 MCG/ACT Suspension 1 spray in each nostril Nasally Once a day Vraylar 3 MG Capsule TAKE 1 CAPSULE BY MOUTH EVERY DAY Xarelto 20 MG Tablet TAKE 1 TABLET BY MOUTH EVERY DAY Vitamin D (Ergocalciferol) 1.25 MG (00913 UT) Capsule TAKE 1 CAPSULE BY MOUTH 1 TIME A WEEK Atorvastatin Calcium 20 MG Tablet 1 tablet Orally Once a day QUEtiapine Fumarate 50 MG Tablet TAKE 1 OR 2 TABLETS BY MOUTH AT BEDTIME Tamsulosin HCl 0.4 MG Capsule TAKE 1 CAPSULE BY MOUTH EVERY DAY 30 minutes after same meal each day until stone passess Oral oxyCODONE HCl 5 MG Tablet Oral Ibuprofen 600 MG Tablet Oral Ondansetron 4 MG Tablet Disintegrating Oral Temazepam 30 MG Capsule 1 capsule at bedtime Orally Once a day HYDROcodone-Acetaminophen 5-325 MG Tablet 1 tablet Orally every 6 hrs As needed, stop date 08/04/2025hydrOXYzine HCl 50 MG Tablet TAKE 1 TABLET BY MOUTH AT NIGHT FOR 30 DAYS. Cyclobenzaprine HCl 10 MG Tablet 1 tablet Orally twice a day Desvenlafaxine Succinate ER 50 MG Tablet Extended Release 24 Hour TAKE 1 TABLET BY MOUTH EVERY DAY Medication List reviewed and reconciled with the patientTaking Pentoxifylline Taking Flonase Allergy Relief 50 MCG/ACT Suspension 1 spray in each nostril Nasally Once a day Taking Vraylar 3 MG Capsule TAKE 1 CAPSULE BY MOUTH EVERY DAY Taking Xarelto 20 MG Tablet TAKE 1 TABLET BY MOUTH EVERY DAY Taking Vitamin D (Ergocalciferol) 1.25 MG (57221 UT) Capsule TAKE 1 CAPSULE BY MOUTH 1 TIME A WEEK Taking Atorvastatin Calcium 20 MG Tablet 1 tablet Orally Once a day Taking QUEtiapine Fumarate 50 MG Tablet TAKE 1 OR 2 TABLETS BY MOUTH AT BEDTIME Taking Tamsulosin HCl 0.4 MG Capsule TAKE 1 CAPSULE BY MOUTH EVERY DAY 30 minutes after same meal each day until stone passess Oral Taking oxyCODONE HCl 5 MG Tablet Oral Taking Ibuprofen 600 MG Tablet Oral Taking Ondansetron 4 MG Tablet Disintegrating Oral Taking Temazepam 30 MG Capsule 1 capsule at bedtime Orally Once a day Taking HYDROcodone-Acetaminophen 5-325 MG Tablet 1 tablet Orally every 6 hrs As needed, stop date 08/04/2025Taking hydrOXYzine HCl 50 MG Tablet TAKE 1 TABLET BY MOUTH AT NIGHT FOR 30 DAYS. Taking Cyclobenzaprine HCl 10 MG Tablet 1 tablet Orally twice a day Taking Desvenlafaxine Succinate ER 50 MG Tablet Extended Release 24 Hour TAKE 1 TABLET BY MOUTH EVERY DAY Medication List reviewed and reconciled with the patient * Allergies: N .K.D.A.yesAllergies Verified. Objective: * Vitals: H t: 6ft 2 in, Wt: 248 lbs, BMI:31.84Index, Temp: 97.8 F, BP: 116/84 mm Hg, SaO2:96%, HR: 113 /min, RR: 20 /min. * Examination: ???General Examination: ?GENERAL APPEARANCE:?alert and oriented, in no acute distress, pleasant, nontoxic.?FACE:?pleasant, symmetrical, well appearing.?CARDIOVASCULAR:?Regular rate and rhythm, S1/S2 are normal,tachycardia.?PERIPHERAL PULSES:?radial pulses +2/4 bilaterally, posterior tibial pulses +2/4 bilaterally.?CHEST:?Chest expansion symmetrical.?RESPIRATORY:?clear to auscultation bilaterally, good breath sounds bilaterally, no wheezes, rhonchi, rales. No cough.?GASTROINTESTINAL:?Abdomen Soft, active bowel sounds in all4 quadrants.?NEUROLOGIC EXAM:?appropriate for age.?SKIN:?Warm, dry, and intact. No rashes or lesions noted. ?MUSCULOSKELETAL:?left CVA tenderness.?PSYCH?good eye contact, oriented to person, oriented to place, oriented to time, normal speech, appropriate mood and affect , normal speech.?General?AAOx3, NAD.? Assessment: * Assessment: 1.?Kidney stone - N20.0 (Primary)???2.?History of pulmonary embolus (PE) - Z86.711??? Plan: * Treatment: Notes: cardiac clearance ordered and completed, pt had a PE in November of 2022, at that time underwent cardiac history but he never f/u.? HIs ECG for upcoming procedure showed ST changes suspciousfor ischemia, therefore requested a clearance.? He did see NO and has low risk.? He is medically cleared.? He may stop is xeralto as directed by urology and restart when able? 2.?History of pulmonary embolus (PE)? Refill oxyCODONE HCl Tablet, 5 MG, 1 tablet, Orally, every 6 hours As needed, 5 days, 20 Tablet, Refills 0.?? Notes: ok to stop xeralto for procedure, restart as soon as recommended by urology.?? ? * Procedure Codes: 3 079F DIAST BP 80-89 MM [id number] SYST BP LT 130 MM RB8058A RVW MEDS BY RX/DR IN [id number] [facility] PPS EST PT * Follow Up: p rn (Reason: as schedule) Billing Information: * Procedure Codes: 3079F DIAST BP 80-89 MM HG. 3074F SYST BP LT 130 MM HG. 1160F RVW MEDS BY RX/DR IN [facility]. [id number] [facility] PPS EST PT. * ign off status: Completed true * Appointment Provider: Uche Edmonds NP Date: Generated for Printing/Faxing/eTransmitting on:?08/04/2025 12:41 PM EST
--- OUTSIDE RECORDS SUMMARY | 2025-08-04 12:40 | XMS_ITS | Clinical Summary ---
Author Organization [facility] Address [address] [place], [place] [address] Care Team Providers Care Packer Inspector Name Role Phone Alejandra Elder Unavailable [phone] SpasiAlejandra damico INDUSTRIAL PIPEFITTER JOURNEYMAN Unavailable [phone] Alejandra Edmonds INDUSTRIAL PIPEFITTER JOURNEYMAN Primary Care Provider [phone] Niles Ho Unavailable [phone] Allergies No known active allergies Medications MedicationSigDispense QuantityRefillsLast FilledStart DateEnd DateStatus traMADol (ULTRAM) 50 mg tablet Take 50 mg by mouth as needed.Active sertraline (ZOLOFT) 25 mg tablet Take 25 mg by mouth once daily.Active simvastatin (ZOCOR) 10 mg tablet Take 30 mg by mouth daily at bedtime. Active ergocalciferol, vitamin D2, (VITAMIN D) 50,000 unit capsule Take 50,000 Units by mouth once each week.Active gabapentin (NEURONTIN) 400 mg capsule Take 400 mg by mouth three times daily.Active pentoxifylline (TRENTAL ORAL) Take 3 tablets by mouth once daily. Active pantoprazole DR (PROTONIX) 40 mg tablet Take 40 mg by mouth once daily.Active ibuprofen (MOTRIN) 400 mg tablet Take 400 mg by mouth every 6 hours as needed.Active HYDROcodone-acetaminophen (NORCO) 5-325 mg per tablet Take 1 tablet by mouth every 6 hours as needed for pain.Active Active Problems No known active problems Immunizations ImmunizationAdministration DatesNext DueCOVID-19 original vaccine, full dose, monovalent (MODERNA)08/16/2021,01/04/2021,12/07/2020 Social History Tobacco UseTypesPacks/DayYears UsedDateSmoking Tobacco: FormerCigarettes Smokeless Tobacco: NeverArea Deprivation IndexAnswerDate RecordedNational Score (1-100), lower number is lower riskNot on file09/04/2020State Score (1-10), lower number is lower riskNot on file09/04/2020Data from: https://www.neighborhoodatlas.[facility]/. Last address used for calculationNot on file09/04/2020Sex and Gender InformationValueDate RecordedSex Assigned at BirthNot on fileLegal CuzWlgp01/02/2012 9:01 AM ESTGender Identity Not on fileSexual OrientationNot on file Last Filed Vital Signs Vital SignReadingTime TakenCommentsBlood Xmurvdjs095/9408/20/2021 12:19 PM EST Ymelf341008/20/2021 12:19 PM WWTQtxrkrqihdu15.3 ??C (86.6 ??F)08/20/2021 12:19 PM ESTRespiratory Zvcz801703/09/2018 9:45 AM EDTOxygen Rcbwrukhgg95%08/20/2021 12:19 PM ESTInhaled Oxygen Concentration--Okjdgj42.5 kg (210 lb 8 oz)08/08/2021 2:59 PM TOTZscdjh292 cm (6' 2 )08/08/2021 2:59 PM ESTBody Mass Index27.03110/08/2020 2:59 PM EST Plan of Treatment Health MaintenanceDue DateLast DoneCommentsAnxiety Elvvzhlux94/13/1981Depression Eilxwlltu37/13/1981HIV Eaifnvmxq42/13/1981Hepatitis C Olexckfip61/13/1981 DTaP,Tdap,Td Vaccine (1 - Tdap)1982Lipid Utucpflvu31/13/1998CT Cynnkmkifzxx13/13/2008Cologuard (FIT-DNA)02/09/20081383Jpujfqlmkwm08/13/2008 Colorectal Cancer Eqodjffhz70/13/2008Fecal Occult Blood02/09/2008Prostate Cancer Screening Peirxuqpii52/13/4354Fnataplpdxkcc37/13/2008Pneumococcal Vaccine: 50+ (3 of 3 - PCV20 or PCV21), 06/13/2015Diabetes Screening Covid-19 Vaccine ( season), 01/04/2021, 12/07/2020Influenza Vaccine (#1)511/10/2020, 05/30/2016, 05/23/2016, Additional history existsRSV Vaccine (1 - 1-dose 75+ series) 2038Shingrix TpylqdrZesmpdskz19/22/2021, 10/03/2020 Procedures Procedure NamePriorityDate/TimeAssociated DiagnosisCommentsCOMPREHENSIVE METABOLIC OLLCCYyxtaaz19/06/2019 12:10 PM EST Atrophie nadia from Last 3 Months or Most Recently Relevant to Health Maintenance Results * (ABNORMAL) COMP METABOLIC PANEL (12/02/2018 12:10 PM EST)ComponentValueRef RangeTest MethodAnalysis TimePerformed AtPathologist SignatureProtein, Total 7.66.3 - 8.0 g/dL12/02/2018 5:02 PM ESTWvumed[facility] LaboratoriesAlbumin4.7 3.9 - 4.9 g/dL12/02/2018 5:02 PM [facility] LaboratoriesCalcium9.68.5 - 10.2 mg/dL12/02/2018 5:02 PM [facility] LaboratoriesBilirubin, Total0.40.2 - 1.3 mg/dL12/02/2018 5:02 PM [facility] Alkaline Fkxjjcfrxhw6266 - 113 U/L12/02/2018 5:02 PM [facility] YucrssnodzdmZUV6922 - 40 U/L12/02/2018 5:02 PM [facility] ZbkmyhdolxsrHffirjn882(H)74 - 99 mg/dL12/02/2018 5:02 PM [facility] LaboratoriesComment: The [place] Diabetes Association (ADA) provides guidance for cutoff [...] Standards of Medical Care in Diabetes 2016, [place] [employer] Association. Diabetes Care. 2016.39(Suppl 1). XYR091 - 24 mg/dL12/02/2018 5:02 PM [facility] LaboratoriesCreatinine 1.130.73 - 1.22 mg/dL12/02/2018 5:02 PM [facility] LaboratoriesSodium 677795 - 144 mmol/L12/02/2018 5:02 PM [facility] LaboratoriesPotassium 4.43.7 - 5.1 mmol/L12/02/2018 5:02 PM [facility] LaboratoriesChloride 56254 - 105 mmol/L12/02/2018 5:02 PM [facility] GobupposjotjVG40962 - 30 mmol/L12/02/2018 5:02 PM [facility] LaboratoriesAnion Aek593 - 18 mmol/L12/02/2018 5:02 PM [facility] FvlobbcepqmyQIM1785 - 54 U/L 12/02/2018 5:02 PM [facility] LaboratorieseGFR->60 12/02/2018 5:02 PM [facility] LaboratorieseGFR-All Other Races>60. 12/02/2018 5:02 PM [facility] LaboratoriesComment: eGFR (Estimated GFR) Units of measure: mL/min/1.73 [...] eGFR may not accurately reflect actual GFR. Specimen (Source)Anatomical Location / LateralityCollection Method / Volume Collection TimeReceived TimeBlood specimen (specimen)BLOOD SPECIMEN / Unknown 12/02/2018 12:10 PM EST12/02/2018 12:13 PM EST Narrative Authorizing ProviderResult TypeResult StatusJohn Cruz Levi III, MD LABORATORYFinal ResultPerforming OrganizationAddressCity/State/ZIP CodePhone Number [facility] [address] [place] [address] [facility] [address] [place] [address] from Last 3 Months or Most Recently Relevant to Health Maintenance Insurance Care Teams Team MemberRelationshipSpecialtyStart DateEnd Date Alejandra Edmonds NP [address] [place] [address] PCP - GeneralFamily Medicine12/02/18 Alejandra Elder ReferringWound Care09/29/17 Alejandra Edmonds NP [address] [place] [address] ReferringFamily Medicine11/13/18 Niles Ho [facility] [place] [facility] [place] [address] ReferringPodiatry02/17/19
--- OUTSIDE RECORDS SUMMARY | 2025-08-04 12:40 | XMS_ITS | Encounter Summary ---
Author Organization [facility] Address [address] [place] [address] Phone Care Team Providers Care Oyster Cultivator Name Role Phone Alejandra Edmonds APRN-INSTRUCTOR BUSINESS EDUCATION Primary Care Provider + Encounter Details DateTypeDepartmentCare Team (Latest Contact Info)Smhdslpaxyo27/23/2025Travel Social History Tobacco UseTypesPacks/DayYears UsedDateSmoking Tobacco: GbqogxCrwzcuyjyh743 Started: 1980Smokeless Tobacco: NeverAlcohol UseStandard Drinks/WeekCommentsNot Currently0 (1 standard drink = 0.6 oz pure alcohol)socialPHQ-2AnswerDate RecordedPatient Health Questionnaire-2 Nqqnl292Sex and Gender InformationValueDate RecordedSex Assigned at BirthNot on fileLegal SexMale 11/11/2022 2:48 PM ESTGender IdentityNot on fileSexual OrientationNot on file documented as of this encounter Functional Status * BPAnswerDate of MyntfsnupnLuicac871/8607/21/2025 3:12 PM Tasneem Nicholas CMA * PulseAnswerDate of UkbotsytfkXskpmr6675/23/2025 3:12 PM Tasneem Nicholas CMA * Communicable Disease ScreeningQuestionAnswerDate of AssessmentAuthorDo you have any of the following new or worsening symptoms?None of these07/21/2025 2:49 PM Thalia Hernandez documented as of this encounter Plan of Treatment Not on file documented as of this encounter Visit Diagnoses Not on filedocumented in this encounter Additional Health Concerns AssessmentNoted TimeA fall risk assessment has been completed for the patient 07/03/2023 9:14 AM EDTdocumented as of this encounter Care Teams Team MemberRelationshipSpecialtyStart DateEnd Date Alejandra Edmonds, MMA FIGHTER-INSTRUCTOR BUSINESS EDUCATION [address] [place] [address] PCP - General11/11/22documented as of this encounter
--- OUTSIDE RECORDS SUMMARY | 2025-08-04 12:41 | XMS_ITS | Clinical Summary ---
Author Organization [facility] Address [address] [place] [address] Care Team Providers Care Painting Technician Name Role Phone Unavailable Primary Care Provider Unavailabl e Social History Tobacco UseTypesPacks/DayYears UsedDateSmoking Tobacco: Never AssessedSex and Gender InformationValueDate RecordedSex Assigned at BirthNot on fileLegal Sex Male12/11/2022 6:55 PM EDTGender IdentityNot on fileSexual OrientationNot on file Last Filed Vital Signs Vital SignReadingTime TakenCommentsBlood Kmbxyfxr231/7303/06/2022 12:00 PM EDT Pulse--Temperature--Respiratory Rate--Oxygen Saturation--Inhaled Oxygen Concentration--Weight--Pcfkcq368 cm (6' 2 )03/06/2022 12:00 PM EDTBody Mass Index-- Plan of Treatment Not on file Insurance
--- OUTSIDE RECORDS SUMMARY | 2025-08-04 12:41 | XMS_ITS | Clinical Summary ---
Author Organization [facility] Address [address] [place] [address] Phone Care Team Providers Care Power System Dispatcher Name Role Phone Alejandra Edmonds APRN-NETWORK ENGINEER ADMINISTRATOR Primary Care Provider + Allergies No known active allergies Medications MedicationSigDispense QuantityRefillsLast FilledStart DateEnd DateStatus desvenlafaxine (Pristiq) 50 mg 24 hr tablet Take 1 tablet (50 mg) by mouth once daily. Do not crush, chew, or split.Active fluticasone (Flonase) 50 mcg/actuation nasal spray Administer 1 spray into each nostril once daily. Shake gently. Before first use, prime pump. After use, clean tip and replace cap.Active HYDROcodone-acetaminophen ([place]) 5-325 mg tablet Take 1 tablet by mouth. Every 4 to 6 hours as neededActive hydrOXYzine HCL (Atarax) 50 mg tablet Take 1 tablet (50 mg) by mouth once daily at bedtime.Active ibuprofen 400 mg tablet Take 1 tablet (400 mg) by mouth 3 times a day as needed.Active pentoxifylline (Trental) 400 mg ER tablet Take 1 tablet (400 mg) by mouth 3 times a day. Do not crush, chew, or split. Active QUEtiapine (SEROquel) 50 mg tablet Take 1 tablet (50 mg) by mouth 2 times a day.Active temazepam (Restoril) 30 mg capsule Take 1 capsule (30 mg) by mouth once daily at bedtime.Active rivaroxaban (Xarelto) 20 mg tablet Take 1 tablet (20 mg) by mouth once daily. Take with food.Active simvastatin (Zocor) 10 mg tablet Take 1 tablet (10 mg) by mouth once daily at bedtime.Active Vraylar 3 mg capsule 1 capsule (3 mg) once daily.5Active ergocalciferol (Vitamin D2) 1250 mcg (50,000 units) capsule Take 1 capsule (1.25 mg) by mouth 1 (one) time per week.Active tamsulosin (Flomax) 0.4 mg 24 hr capsule Take 1 capsule (0.4 mg) by mouth once daily.5Active acetaminophen (Tylenol) 500 mg tablet Take 1 tablet (500 mg) by mouth if needed for mild pain (1 - 3).Active cyclobenzaprine (Flexeril) 10 mg tablet Take 1 tablet (10 mg) by mouth 3 times a day as needed.07/21/2025Discontinued (Therapy completed) simvastatin (Zocor) 40 mg tablet Take 1 tablet (40 mg) by mouth once daily at bedtime.07/21/2025Discontinued(Dose adjustment) cholecalciferol, vitamin D3, (VITAMIN D3 ORAL) Take 1 capsule by mouth 1 (one) time per week in the state manager..07/21/2025 Discontinued(Therapy completed) cariprazine HCl (VRAYLAR ORAL) Take 1 capsule by mouth once daily.07/21/2025Discontinued(Dose adjustment) Active Problems ProblemNoted DateDiagnosed DatePre-operative ufcdwdgni78/23/2025BMI 31.0-31.9,adult07/21/2025Personal history of COVID-191nticoagulated by anticoagulation qybgnrzda76/05/2023Encounter to discuss test advijqo3707/03/2023 Assessment & Plan (07/05/2023 3:29 PM EDT): Reviewed laboratory data and stress test results with patient during this visit Discussed that coronary artery disease is a dynamic process and that he should seek prompt medical attention if new symptoms develop. Patient may follow-up with me on an as-needed basis Thank you Enma for allowing us to participate in Mr. Tobar care please do not hesitate to callif questions arise, Sincerely, Lydia Alex MD FACC Abnormal EKG08 Assessment & Plan (07/05/2023 3:21 PM EDT): Patient with risk factors, recent treadmill perfusion imaging study from May 2023 was negative for ischemia at a workload of 7 METS 96% age- predicted maximum heart rate, LVEF 64%, transient ischemic dilatation 1.1 which is normal. No angina pectoris or anginal equivalent. GERD (gastroesophageal reflux disease)05/26/2023 Assessment & Plan (07/05/2023 3:24 PM EDT): [...] black stool. History of DVT (deep vein thrombosis)05/26/2023 Assessment & Plan (07/05/2023 3:23 PM EDT): Patient remains on high risk medication Xarelto, 20 mg daily, appropriate dose Xarelto management is addressed by primary care. Could consider hematology oncology evaluation to help assess the duration of Antex coagulation. Patient has completed 6 months. History of pulmonary embolus (PE)05/26/2023 Assessment & Plan (07/05/2023 3:23 PM EDT): No symptoms, completed adequate duration of anticoagulation. Mixed sxqglnqkbpycem37/28/2023 Assessment & Plan (07/05/2023 3:22 PM EDT): Patient remains on simvastatin 40 mg daily without any untoward effects Lipid profile from February 2023 is at target with LDL of 68 triglycerides 120 HDL 49. Continue same Sinus xsooiwqcuew18/28/2023 Resolved Problems ProblemNoted DateDiagnosed DateResolved DateChronic obstructive pulmonary disease, zoejwlwrszl58Hypertension Encounters DateTypeDepartmentCare ZbilYicbiyovicg13/23/2025 3:00 PM EDTOffice Visit [facility] [address] [address] Anette Kim, DIRECTOR OF PROPERTY MANAGEMENT-NETWORK ENGINEER ADMINISTRATOR Pre-operative clearance (Primary Dx) Discharge Disposition: Home07/21/2025Travelfrom Last 3 Months Immunizations ImmunizationAdministration DatesNext DueFlu vaccine (IIV4), preservative free *Check age/dose*06/10/2022Influenza, Abirwrkgnds71/02/2021Influenza, seasonal, cqyecorjsw26/28/2023,05/30/2016,06/13/2015MMR vaccine, subcutaneous (MMR II) 03/25/2016Moderna COVID-19 vaccine, bivalent, blue cap/yusuf label *Check age/dose*06/10/2022Moderna SARS-CoV-2 Pstaifstdry17/18/2021,01/04/2021, 12/07/2020neumococcal conjugate vaccine, 13-valent (PREVNAR 13)06/13/2015 Pneumococcal polysaccharide vaccine, 23-valent, age 2 years and older (PNEUMOVAX 23)07/11/2016Zoster vaccine, recombinant, adult (SHINGRIX)01/18/2021,10/03/2020 Family History Medical HistoryRelationNameCommentsHeart diseaseMotherRelationNameStatusComments Mother Social History Tobacco UseTypesPacks/DayYears UsedDateSmoking Tobacco: FcattsWnfauaalyh914 Started: 1980Smokeless Tobacco: NeverAlcohol UseStandard Drinks/WeekCommentsNot Currently0 (1 standard drink = 0.6 oz pure alcohol)socialPHQ-2AnswerDate RecordedPatient Health Questionnaire-2 Qbosj429Sex and Gender InformationValueDate RecordedSex Assigned at BirthNot on fileLegal SexMale 11/11/2022 2:48 PM ESTGender IdentityNot on fileSexual OrientationNot on file Last Filed Vital Signs Vital SignReadingTime TakenCommentsBlood Slxdlmls022/8610 3:12 PM EDT Josve5985/23/2025 3:12 PM EDTTemperature--Respiratory Rate--Oxygen Saturation-- Inhaled Oxygen Concentration--Tdpdrb999 kg (249 lb)07/21/2025 3:12 PM EDTHeight 188 cm (6' 2 )07/21/2025 3:12 PM EDTBody Mass Index31.9710/ 3:12 PM EDT Plan of Treatment Health MaintenanceDue DateLast DoneCommentsCT Afhrfnggflmn1963Colonoscopy 1963Colorectal Cancer Ousfmludc1963FIT-DNA (Cologuard)1963FIT 1963HIV Ufdhepkwq1963Lipid Panel1963Medicare Annual Wellness Visit (AWV)1963Zifzdadyezvrk1963Hepatitis C Xqmgupwhh16/13/1981 DTaP/Tdap/Td Vaccines (1 - Tdap)1985PSA Prostate Cancer Screening 2013Pneumococcal Vaccine (3 of 3 - PCV20 or PCV21), 06/13/2015Influenza Vaccine (#1)509/, 06/10/2022, 07/31/2021, Additional history existsCOVID-19 Vaccine (4 - 2024- season)2025 06/10/2022, 08/16/2021, 01/04/2021, Additional history existsRSV High Risk: (Elderly (60+) or Population) (1 - 1-dose 75+ series)2038MMR NgrtricpReoqptxde88/27/2016Zoster BopqicbgTakhsnghw22/22/2021, 10/03/2020HIB VaccinesAged OutNo longer eligible based on patient's age to complete this topic HPV VaccinesAged OutNo longer eligible based on patient's age to complete this topicHepatitis A VaccinesAged OutNo longer eligible based on patient's age to complete this topicHepatitis B VaccinesAged OutNo longer eligible based on patient's age to complete this topicIPV VaccinesAged OutNo longer eligible based on patient's age to complete this topicMeningococcal VaccineAged OutNo longer eligible based on patient's age to complete this topicRotavirus VaccinesAged Out No longer eligible based on patient's age to complete this topic Procedures Procedure NamePriorityDate/TimeAssociated DiagnosisCommentsECG 12-LEADRoutine 07/21/2025 3:00 PM EDT Pre-operative clearance from Last 3 Months Results * ECG 12 Lead (07/21/2025 3:00 PM EDT)Specimen (Source)Anatomical Location / LateralityCollection Method / VolumeCollection TimeReceived Time Narrative CPACS - 07/26/2025 1:12 PM EDT Normal sinus rhythm, atrial abnormality (right atrial enlargement), inferior Q wave infarction pattern age indeterminant, incomplete left bundle branch block, abnormal ECG Authorizing ProviderResult TypeResult StatusAnette Kim DIRECTOR OF PROPERTY MANAGEMENT-CNPECG ORDERABLES Final ResultPerforming OrganizationAddressCity/State/ZIP CodePhone Number CPACS from Last 3 Months Insurance Care Teams Team MemberRelationshipSpecialtyStart DateEnd Date Alejandra Edmonds APRN-NETWORK ENGINEER ADMINISTRATOR [address] [place] [id number] [facility]11/11/22
--- OUTSIDE RECORDS SUMMARY | 2025-08-04 12:41 | XMS_ITS | Patient Health Record ---
Author Organization [facility] Address [facility] [place] [address] Care Team Providers Care Monogram Technician Name Role Phone Vinicio Andersen Unavailable [phone] Reason For Referral No Information Plan Of Treatment No Information Insurance Providers Payer Name Payer Address Payer Phone Subscriber Number Group Number Insured Name Patient Relationship to Insured Coverage Start Date Coverage End Date [employer] [address] [place] [address] [id number], StevenSelf - patient is the insured
--- OUTSIDE RECORDS SUMMARY | 2025-08-04 12:42 | XMS_ITS | Patient Health Record ---
Author Organization [employer] [facility] Address [address] [place] [address] Care Team Providers Care Supervisor Production Name Role Phone Alejandra Edmonds Primary Care Provider Li Quiñones Unavailable [phone] Allergies No Known Allergies Results Component Value Reference Range Flag Notes Lipase Reviewed date:07/12/2025 09:23:02 AM Interpretation: Performing Lab: Notes/Report: Lipase 29.0 11.0-82.0 U/L N Comprehensive Metabolic Panel Reviewed date:07/12/2025 09:23:02 AM Interpretation: Performing Lab:, [facility], [address] [place] Notes/Report:Yavjwnr56797-929 mg/dLH Random Glucose Reference Range is dependent on time and content of last meal. Glucose of more than 200 mg/dL in a nonstressed, ambulatory subject supports the diagnosis of Diabetes Mellitus. ADA recommended reference range Blood Urea Xhvazwmn383-37 mg/dLNCreatinine1.150.70-1.30 mg/iWOFraieh089643-222 mmol/LNPotassium4.33.5-5.1 mmol/LN Hemolysis is present at a level that could interfere with the result. Contact lab if redraw is required Xlpsiyvi28028-441 mmol/LNCarbon Rerafda61.021.0-31.0 mmol/LNCalcium9.48.6-10.3 mg/dLNTotal Protein7.66.4-8.9 g/dLNAlbumin Level4.63.5-5.7 g/dLNGlobulin3.0 Albumin/Globulin Ratio1.5Bilirubin,Total0.70.3-1.0 mg/dLNAspartate Amino Vwlsdqwfqvy4961-33 U/LNAlanine Gyidrjflehamzapk631-48 U/LNAlkaline Mturcuzqoxe89 34-104 U/LNEstimated GFR>60.0Anion Gap12.36.0-15.0NCreatinine Clr Calc Pharmacy 89.38Dipstick and Microscopic Reviewed date:05/26/2025 09:23:42 PM Interpretation: Performing Lab:, [facility], [place] Notes/Report: Name Collection Type:: Clean-Voided MidstreamColor,UrineDark-BrownYellowAA Appearance,UrineTurbidClearAASpecificy [place],Urine1.0281.001-1.030NpH,Urine5.5 5.0-9.0NLeukocyte Esterase,Urine2+NegativeNitrite,UrineNegativeNegative Protein,Ejjwj431Aospwiij mg/dLGlucose,Urine (UA)NormalNormal mg/dLKetones,Urine NegativeNegativeUrobilinogen,UrineNormalNormal mg/dLBilirubin,UrineNegative NegativeOccult Blood,Urine3+NegativeRBC,UrineInnumerable0-4 [HPF]WBC,Urine5-90-4 [HPF]Othe Crystals,Urine3+Bacteria,UrineNone SeenNone Seen [HPF]Hyaline Casts,UrineNone0-8 [LPF]Mucus,Urine4+AABudding Yeast,Urine4+None Seen [HPF]Urine Culture Reviewed date:05/25/2025 02:11:48 PM Interpretation: Performing Lab:, [facility], [address] [place] Notes/Report:Lipase Reviewed date:05/25/2025 02:13:24 PM Interpretation: Performing Lab: Notes/Report:Fmnvlk99.011.0-82.0 U/LNHepatic Panel Reviewed date:05/25/2025 02:11:58 PM Interpretation: Performing Lab:, [facility], [place] Notes/Report:Total Protein7.46.4-8.9 g/dLNAlbumin Level4.63.5-5.7 g/dLNGlobulin 2.8Albumin/Globulin Ratio1.6Bilirubin,Total0.80.3-1.0 mg/dLNBilirubin,Direct0.20 0.03-0.18 mg/dLHBilirubin,Indirect0.6Aspartate Amino Hxaofpxrmmv9130-28 U/LN Alanine Vwyveaadjboubnii274-38 U/LNAlkaline Eudxqjblnca6133-903 U/LNBasic Metabolic Panel Reviewed date:05/26/2025 09:23:53 PM Interpretation: Performing Lab: Notes/Report:Kvspasj21914-416 mg/dLH Random Glucose Reference Range is dependent on time and content of last meal. Glucose of more than 200 mg/dL in a nonstressed, ambulatory subject supports the diagnosis of Diabetes Mellitus. ADA recommended reference range Blood Urea Pkiufhys865-29 mg/tHXHrotso427740-427 mmol/LNPotassium4.43.5-5.1 mmol/RFNutlnrxt06033-838 mmol/LNCarbon Hftaypm43.321.0-31.0 mmol/LNCalcium9.4 8.6-10.3 mg/dLNCreatinine1.130.70-1.30 mg/dLNEstimated GFR>60.0Anion Gap13.1 6.0-15.0NCreatinine Clr Calc Cyvwrkwm18.47Complete Blood Count Auto Diff Reviewed date:05/27/2025 01:46:43 PM Interpretation: Performing Lab:, [facility], [address] [place] Notes/Report:White Blood Count11.74.1-10.5 [CFU]/mLHUncorrected WBC11.74.1-10.5 10*3/uLHRed Blood Count5.063.90-5.60 10*6/iTAJlgyljeijn39.513.0-17.0 g/dLN Jjmytgqwwd69.638.8-50.0 %NMean Corpuscular Zyelxi72.383.5-101 fLNMean Corpuscular Stnbmuecxj82.727.5-35.2 pgNMean Corpuscular HGB Conc33.332.5-35.6 g/dLNRed Cell Distribution Width13.112.0-14.8 %NPlatelet Mryvi521785-740 10*3/uL NMean Platelet Volume7.16.6-10.1 fLNNeutrophils % (Auto)82.6. %Lymphocytes % (Auto)14.1. %Monocytes % (Auto)2.6. %Eosinophils % (Auto)0.2. %Basophils % (Auto)0.5. %NRBC%0.10-0.5 /100{WBC}NNeutrophils # (Auto)9.71.8-7.7 10*3/uLH Lymphocytes # (Auto)1.61.00-4.8 10*3/uLNMonocytes # (Auto)0.30.0-0.8 10*3/uLN Eosinophils # (Auto)0.00.0-0.45 10*3/uLNBasophils # (Auto)0.10.0-0.2 10*3/uLN Monocyte Distribution Width16.970.00-20.00 %NVitamin D 25 Hydroxy Reviewed date:06/08/2025 05:56:47 PM Interpretation: Performing Lab: Notes/Report: Reason for Exam Vitamin D deficiency, unspecified Reason for Exam High blood triglyceridesVitamin D 25 Hydroxy Total38.630-100 ng/mLN VITAMIN D STATUS 25(OH)VITAMIN D RANGE (ng/mL) Deficient <20 Insufficient 20 to <30 Sufficient 30 to 100 Reference: Guerline MF,Vaibhav NC, Gonzalez OCONNOR, et al. Evaluation,treatment, and prevention of vitamin D deficiency; an Endocrine Society clinical practice guideline. JCEM. 2010; 96(7):1911-30. Prostate Specific Antigen Scrn Reviewed date:06/08/2025 05:57:21 PM Interpretation: Performing Lab:, [facility], [address], [place] Notes/Report: Reason for Exam Encounter for prostate cancer screeningPSA Screen (Yearly Only) 0.9200.000-4.000 ng/mLN Serial tumor marker results determined by assays using different manufacturers or methods may not be comparable. 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 Lipid Panel Reviewed date:06/08/2025 05:57:14 PM Interpretation: Performing Lab: Notes/Report: Reason for Exam High blood triglycerides Reason for Exam Vitamin D deficiency, guecxurdaxrOpfzotksate244537-359 mg/dLN Chol less than 200 mg/dl low risk Chol 201-239 mg/dl borderline risk Chol 240 mg/dl and greater high risk HDL Djqpqkhufuu3003-86 mg/dLN HDL CHOL ATP-III CLASSIFICATION Cardiovascular Risk HDL > or equal to 60 mg/dL LOW HDL < 40 mg/dL HIGH Triglyceride w/Shuwby2260-091 mg/dLH TRIG ATP III CLASSIFICATION TRIG less than 150 mg/dL Normal TRIG 150-199 mg/dL Borderline high TRIG 200-500 mg/dL High TRIG greater than 500 mg/dL Very high Standard traceable to the Center for Disease Conrtrol and Prevention (CDC) test method. LDL Cholesterol,Uvmdgbnmph290-102 mg/dLN LDL ATP III CLASSIFICATION LDL less than 100 mg/dL Optimal LDL 100-129 mg/dL Near or above optimal LDL 130-159 mg/dL Borderline high LDL 160-189 mg/dL High LDL greater than 189 mg/dL Very high VLDL JYLZAAQLUPV86Lyod/HDL Ratio3.6<5.0Comprehensive Metabolic Panel Reviewed date:06/08/2025 05:57:39 PM Interpretation: Performing Lab:, [facility], [address] [place] Notes/Report: Reason for Exam High blood triglycerides Reason for Exam Vitamin D deficiency, uthjpqqeaztQqxezkb97621-476 mg/dLH Random Glucose Reference Range is dependent on time and content of last meal. Glucose of more than 200 mg/dL in a nonstressed, ambulatory subject supports the diagnosis of Diabetes Mellitus. ADA recommended reference range Blood Urea Snoccrso594-20 mg/dLNCreatinine1.020.70-1.30 mg/xEXZiljgz525022-142 mmol/LNPotassium4.03.5-5.1 mmol/CBApovscbn94943-255 mmol/LNCarbon Jilxjav64.8 21.0-31.0 mmol/LNCalcium8.88.6-10.3 mg/dLNTotal Protein7.36.4-8.9 g/dLNAlbumin Level4.63.5-5.7 g/dLNGlobulin2.7Albumin/Globulin Ratio1.7Bilirubin,Total1.20.3- 1.0 mg/dLHAspartate Amino Epqpuoxznlr7182-25 U/LNAlanine Mwerarbuvxkemdxs944-00 U/LNAlkaline Lftroiioiqh6423-932 U/LNEstimated GFR>60.0Anion Gap13.26.0-15.0N Complete Blood Count Auto Diff Reviewed date:11/05/2024 07:25:53 AM Interpretation: Performing Lab:, [facility], [address] , [place] Notes/Report: Reason for Exam Hyperlipidemia, unspecified hyperlipidemia typeWhite Blood Count6.44.1-10.5 10*3/uLNUncorrected WBC6.44.1-10.5 10*3/uLNRed Blood Count5.063.90-5.60 10*6/qVIZrfdiwrjzq50.013.0-17.0 g/rXAIylmdmdgfn05.2 38.8-50.0 %NMean Corpuscular Fqqvgn70.383.5-101 fLNMean Corpuscular Hemoglobin 29.727.5-35.2 pgNMean Corpuscular HGB Conc34.032.5-35.6 g/dLNRed Cell Distribution Width13.212.0-14.8 %NPlatelet Fcpji557954-965 10*3/uLNMean Platelet Volume7.66.6-10.1 fLNNeutrophils % (Auto)56.1. %Lymphocytes % (Auto)33.3. % Monocytes % (Auto)5.5. %Eosinophils % (Auto)4.3. %Basophils % (Auto)0.8. %NRBC% 0.30-0.5 /100{WBC}NNeutrophils # (Auto)3.61.8-7.7 10*3/uLNLymphocytes # (Auto) 2.11.00-4.8 10*3/uLNMonocytes # (Auto)0.30.0-0.8 10*3/uLNEosinophils # (Auto)0.3 0.0-0.45 10*3/uLNBasophils # (Auto)0.00.0-0.2 10*3/uLNVitamin D 25 Hydroxy Reviewed date:11/05/2024 07:29:40 AM Interpretation: Performing Lab: Notes/Report: Reason for Exam Hyperlipidemia, unspecified hyperlipidemia type Reason for Exam Vitamin D deficiency, unspecifiedVitamin D 25 Hydroxy Total44.1 30-100 ng/mLN VITAMIN D STATUS 25(OH)VITAMIN D RANGE (ng/mL) Deficient <20 Insufficient 20 to <30 Sufficient 30 to 100 Reference: Guerline MF,Vaibhav BAKER, Gonzalez OCONNOR, et al. Evaluation,treatment, and prevention of vitamin D deficiency; an Endocrine Society clinical practice guideline. JCEM. 2010; 96(0):1911-30. Thyroid Stim Hormone w/Rflx Reviewed date:11/05/2024 07:25:32 AM Interpretation: Performing Lab: Notes/Report: Reason for Exam Hyperlipidemia, unspecified hyperlipidemia type Reason for Exam Vitamin D deficiency, unspecifiedThyroid Stim Hormone w/Rflx1.50 0.45-5.33 u[iU]/mLNLipid Panel Reviewed date:11/05/2024 07:25:26 AM Interpretation: Performing Lab: Notes/Report: Reason for Exam Hyperlipidemia, unspecified hyperlipidemia type Reason for Exam Vitamin D deficiency, awrotxjbeuuJteymuqhaie220428-368 mg/dLL Chol less than 200 mg/dl low risk Chol 201-239 mg/dl borderline risk Chol 240 mg/dl and greater high risk HDL Qcjtlchnyjg8989-08 mg/dLN HDL CHOL ATP-III CLASSIFICATION Cardiovascular Risk HDL > or equal to 60 mg/dL LOW HDL < 40 mg/dL HIGH Triglyceride w/Mhlvwo9599-566 mg/dLH TRIG ATP III CLASSIFICATION TRIG less than 150 mg/dL Normal TRIG 150-199 mg/dL Borderline high TRIG 200-500 mg/dL High TRIG greater than 500 mg/dL Very high Standard traceable to the Center for Disease Conrtrol and Prevention (CDC) test method. LDL Cholesterol,Ewsneuscwg384-181 mg/dLN LDL ATP III CLASSIFICATION LDL less than 100 mg/dL Optimal LDL 100-129 mg/dL Near or above optimal LDL 130-159 mg/dL Borderline high LDL 160-189 mg/dL High LDL greater than 189 mg/dL Very high VLDL QAUUVVJBQJC46Nplg/HDL Ratio3.2<5.0Comprehensive Metabolic Panel Reviewed date:11/05/2024 07:25:40 AM Interpretation: Performing Lab:, [facility], [address], [place] Notes/Report: Reason for Exam Hyperlipidemia, unspecified hyperlipidemia type Reason for Exam Vitamin D deficiency, pqdvflnlycnPpthkvy5250-304 mg/dLN Random Glucose Reference Range is dependent on time and content of last meal. Glucose of more than 200 mg/dL in a nonstressed, ambulatory subject supports the diagnosis of Diabetes Mellitus. ADA recommended reference range Blood Urea Vjrfnpef492-52 mg/dLNCreatinine1.100.70-1.30 mg/lSZRrxsgs046484-534 mmol/LNPotassium4.23.5-5.1 mmol/MRAhpxlffw20818-761 mmol/LNCarbon Plbewpw03.2 21.0-31.0 mmol/LNCalcium8.98.6-10.3 mg/dLNTotal Protein7.06.4-8.9 g/dLNAlbumin Level4.53.5-5.7 g/dLNGlobulin2.5Albumin/Globulin Ratio1.8Bilirubin,Total0.70.3- 1.0 mg/dLNAspartate Amino Xwlvqednjcf1605-81 U/LNAlanine Aalbgdscsrnpqlvx882-44 U/LHAlkaline Pzrcndyycsd2764-715 U/LNEstimated GFR>60.0Anion Gap9.06.0-15.0 meq/LNDipstick and Microscopic Reviewed date:07/12/2025 09:23:02 AM Interpretation: Performing Lab:, [facility], [address], [facility] Notes/Report: Name Collection Type:: Clean-Voided MidstreamColor,UrineLight-YellowYellow Appearance,UrineClearClearSpecificy [place],Urine1.0221.001-1.030NpH,Urine6.0 5.0-9.0NLeukocyte Esterase,UrineNegativeNegativeNitrite,UrineNegativeNegative Protein,Klgfz64Tpjtmvjq mg/dLGlucose,Urine (UA)100Normal mg/dLKetones,Urine NegativeNegativeUrobilinogen,UrineNormalNormal mg/dLBilirubin,UrineNegative NegativeOccult Blood,Urine3+NegativeRBC,UrineInnumerable0-4 [HPF]WBC,Vmqxg39-57 0-4 [HPF]Bacteria,UrineNone SeenNone Seen [HPF]Hyaline Casts,UrineNone0-8 [LPF] Mucus,UrineRareComplete Blood Count Auto Diff Reviewed date:07/12/2025 09:23:02 AM Interpretation: Performing Lab:, [facility], [address] [address] Notes/Report:White Blood Count10.04.1-10.5 [CFU]/mLNUncorrected WBC10.04.1-10.5 10*3/uLNRed Blood Count5.353.90-5.60 10*6/tPJZfiobwlwij32.713.0-17.0 g/dLN Pfukmfnzdy12.938.8-50.0 %NMean Corpuscular Mppeqi35.883.5-101 fLNMean Corpuscular Ztmuagatci10.427.5-35.2 pgNMean Corpuscular HGB Conc34.232.5-35.6 g/dLNRed Cell Distribution Width13.812.0-14.8 %NPlatelet Ldajd388726-325 10*3/uL NMean Platelet Volume7.86.6-10.1 fLNNeutrophils % (Auto)70.2. %Lymphocytes % (Auto)21.5. %Monocytes % (Auto)5.5. %Eosinophils % (Auto)2.1. %Basophils % (Auto)0.7. %NRBC%0.20-0.5 /100{WBC}NNeutrophils # (Auto)7.01.8-7.7 10*3/uLN Lymphocytes # (Auto)2.11.00-4.8 10*3/uLNMonocytes # (Auto)0.50.0-0.8 10*3/uLN Eosinophils # (Auto)0.20.0-0.45 10*3/uLNBasophils # (Auto)0.10.0-0.2 10*3/uLN Monocyte Distribution Width19.430.00-20.00 %N Reason For Referral No Information Medications Medication [...] tablet Orally Once a day; Duration: 90 daysActiveVitamin D (Ergocalciferol) 1.25 MG (77406 UT) CapsuleTAKE 1 CAPSULE BY MOUTH 1 TIME A WEEK; Duration: 84 daysActiveDesvenlafaxine Succinate ER 50 MG Tablet Extended Release 24 HourTAKE 1 TABLET BY MOUTH EVERY DAY; Duration: 30ActiveXarelto 20 MG TabletTAKE 1 TABLET BY MOUTH EVERY DAY; Duration: 30ActiveCyclobenzaprine HCl 10 MG Tablet1 tablet Orally twice a day; Duration: 30 days3ActiveVraylar 3 MG CapsuleTAKE 1 CAPSULE BY MOUTH EVERY DAY; Duration: 30ActivehydrOXYzine HCl 50 MG TabletTAKE 1 TABLET BY MOUTH AT NIGHT FOR 30 DAYS.; Duration: 30ActiveHYDROcodone-Acetaminophen 5-325 MG Tablet 1 tablet Orally every 6 hrs; Duration: 30 days As needed /5ActiveFlonase Allergy Relief 50 MCG/ACT Suspension1 spray in each nostril Nasally Once a day; Duration: 1 monthActivePentoxifyllineActive Temazepam 30 MG Capsule1 capsule at bedtime Orally Once a day; Duration: 30 days 5ActiveOndansetron 4 MG Tablet DisintegratingOral; Duration: 4 Days Active Immunizations Vaccine Route Administration Date Status Comme nts Influenza 3+ PRIVATE IM Intramuscular 07/18/2020 Administe red Influenza 3+ PRIVATEIM Pebrvysvwgkiy94/02/2021dministeredInfluenza 3+ PRIVATEIM Qssijjsqrtvno73/28/2023dministeredMODERNAIM Hprgmmlgbkfbv07/11/2021 AdministeredMODERNAIM Krdohotkoyckw42/08/2021dministeredMODERNAIM Intramuscular 1Administered Social History Tobacco Use: Social History Observation Description Date Details (start date - stop date) Former Smoker NA - NA Sex Assigned At : Social History Observation Description Sex Assigned At Male Social History GeneralSocial InfoQuestionAnswerNotesTransition of Care:ER/UC/hospital since last office visit?NoSpecialist seen since last office visit?NoDepression Screening (PHQ-9):Little interest or pleasure in doing thingsSeveral daysFeeling down, depressed, or hopelessNot at allTrouble falling or staying asleep, or sleeping too muchSeveral daysFeeling tired or having little energyNot at allPoor appetite or overeatingNot at allFeeling bad about yourself-or that you are a failure or have let yourself or your family downSeveral daysTrouble concentrating on things, such as reading the newspaper or watching televisionNot at allMoving or speaking so slowly that other people could have noticed. Or the opposite being so fidgetyor restless that you have been moving around a lot more than usualNot at allThoughts that you would be better off , or of hurting yourself in some wayNot at allTotal Tbzed6XedmkjuorzjvyZzkrvce DepressionSubstance abuse/mental health issues of patient/familyPatient - Caffeine Use,Stress/AnxietyAbility to understand healthcare/treatmentPatient: GoodSocial/Support Concerns:Patient:NoBehaviors affecting healthPoor/Risky Behaviors:Denies-Communication Barrier:Language Barrier?:NoDrug/Alcohol:Social InfoQuestionAnswerNotesAUDIT-C (Standard)Did you have a drink containing [...] in the past year?Less than monthly (1 point)Hfpelk9RhbmqpeikmjykeBpcqguyrIztsrms Use:Social InfoQuestion AnswerNotesTobacco Control (Standard)Tobacco use:Former smoker? 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)ActiveconfirmedProblemChronic pain (90747824)Other chronic pain (G89.29)ActiveconfirmedProblemPeripheral vascular disease (827591975)PVD (peripheral vascular disease) (I73.9)Activeconfirmed ProblemCOPD - Chronic obstructive pulmonary disease (59719824)Chronic obstructive pulmonary disease, unspecified COPD type (J44.9)Activeconfirmed ProblemGastroesophageal reflux disease (785458587)Gastroesophageal reflux disease, esophagitis presence not specified (K21.9)ActiveconfirmedProblem Hyperlipidaemia (99757523)Hyperlipidemia, unspecified hyperlipidemia type (E78.5)ActiveconfirmedProblemErectile dysfunction (disorder) (632915291)Erectile dysfunction, unspecified erectile dysfunction type (N52.9)Activeconfirmed ProblemKidney stone (66376792)Kidney stone (N20.0)ActiveconfirmedProblemModerate recurrent major depression (45882927)Moderate episode of recurrent major depressive disorder (F33.1)ActiveconfirmedProblemEpisodic mood disorder (43975251410139)Episodic mood disorder (F39)ActiveconfirmedProblemHistory of pulmonary embolus (927235310)History of pulmonary embolus (PE) (Z86.711)Active confirmedProblemLumbosacral spondylosis without myelopathy (76371993) Osteoarthritis of lumbar spine, unspecified spinal osteoarthritis complication status (M47.816)ActiveconfirmedProblemBilateral tinnitus (0908779352257) Bilateral tinnitus (H93.13)ActiveconfirmedProblemPure hyperglyceridemia (501306464)High blood triglycerides (E78.1)ActiveconfirmedProblemAtrophie nadia (L90.8)Activeconfirmed Vital Signs Heart Rate 113 /min 07/26/2025 Ekqptfaaswe64.8 degrees Sxymzazovb86/28/2025Respiratory Rate20 /min07/26/2025 Wxqcruoq88 %07/26/2025lood pressure cgfzoamno39 mm Hg07/26/20259607Afmnva3bb 2 in in07/26/2025lood pressure apxbtpyw718 mm Hg07/26/20250025Fmpzec278 lbs1MI 31.84 kg/m207/26/2025 Encounters Encounter Location Date Provider Diagnosis [facility] [address] [place] [address] 08/09/[address] [facility] Atrophie nadia L90.8 [facility] [address] [place] [address] 08/16/2024 [facility] [address] [place] [address]/ [facility] [address] [place] [address] 09/[facility]24[facility] [address] [place] [address]/[facility] [address] [place] [address]/03/2025[facility] [place] [facility] SpasicHyperlipidemia, unspecified hyperlipidemia type E78.5[facility] [address] [place] [address]/[facility] [address] [place] [address]/[facility] [id number] [place] [address]/[place] [address] [address]/[facility] [place] [facility] [address] [place] [address]/09/2024[facility] [id number] [place] [address]/[facility] [address] [place] [address]/05/2025 [facility] [address] [place] [address] 02/09/2025[facility] [address] [place] [address]/11/2024[facility] [address] [place] [address]/08/2025[facility] [address] [place] [address]/[facility] [address] [place] [address]/[facility] [address] [place] [address]/[facility] [address] [place] [address]/06/2025[facility] [address] [place] [address] 06/14/2025[facility] [address] [place] [address]/[facility] [address] [place] [address]/03/2025Laura SpasicOther chronic pain G89.29[facility] [address] [place] [address]/[facility]amily [facility] [address] [place] [address] 07/15/2025[place] [address] [place] [address]/02/2025Laura SpasicVitamin D deficiency, unspecified E55.9 ; Hyperlipidemia, unspecified hyperlipidemia type E78.5 andPVD (peripheral vascular disease) I73.9[place] [address] [place] [address] 05Laura SpasicChronic obstructive pulmonary disease, unspecified COPD type J44.9 ; Primary insomnia F51.01 ; Hyperlipidemia, unspecified hyperlipidemia type E78.5 ; PVD (peripheral vascular disease) I73.9 ; Moderate episode of recurrent major depressive disorder F33.1 ; Vitamin D deficiency, unspecified E55.9 and Atrophie nadia L90.8[place] [address] [place] [address]/08/2025Laura SpasicPVD (peripheral vascular disease) I73.9 ; Chronic obstructive pulmonary disease, unspecified COPD type J44.9 ; Other chronic pain G89.29 ; Vitamin D deficiency, unspecified E55.9 ; High blood triglycerides E78.1 and Encounter for prostate cancer screening Z12.5[facility] [address] [address]/05/2025Laura SpasicKidney stone N20.0[facility] [address] [address] 07/26/2025Laura SpasicKidney stone N20.0 and History of pulmonary embolus (PE) Z86.711 Assessments Encounter Date Diagnosis (ICD Code) Assessment Notes Treatment Notes Treatment Clinical Notes Section Notes 11/05/2024 Hyperlipidemia, unspecified hype rlipidemia type (ICD-10 - E78.5) 4Atrophie nadia (ICD-10 - L90.8)11/04/2024Vitamin D deficiency, unspecified (ICD-10 - E55.9)Will check Vit D level, continue Vitamin D replacement as advised. Discussed diet high in Vit D, also 10-15 minutes of direct sunlight is the best source of Vit D.11/04/2024Hyperlipidemia, unspecified hyperlipidemia type (ICD-10 - E78.5)lipid panel every 3-6 months with CMP to monitor liver and renal function, adjust medications accordingly. Discussed a low chol diet. Enc moderate daily exercise. If you develop any muscle cramping, leg cramps/pain, intolerance to medication please RTO. 02/01/2025hronic obstructive pulmonary disease, unspecified COPD type (ICD-10 - J44.9)COPD stable, continue medications as prescribed. Smoking cessation is encouraged. CP/pressure/sob, cough [place], [place], [address]PVD (peripheral vascular disease) (ICD-10 - I73.9)pt requested medication refills today, refills sent per jkjneqj5205/10/2025hronic obstructive pulmonary disease, unspecified COPD type (ICD-10 - J44.9)COPD stable, continue medications as prescribed. Smoking cessation is encouraged. CP/pressure/sob, [place], [place], [address]/05/2025Kidney stone (ICD-10 - N20.0) Patient reports persistent kidney stone pain rated at 6 out of 10. Recent episode of feeling unwelland appearing pale. Possible blood in urine noted. [...] panel to assess kidney function. - Continue [place] and hydrocodone as prescribed for pain. - Refilled Mounjaro, famotidine, Flomax as requested. - Continue Singulair as prescribed. - Referral to Urology for kidney stone management. 07/05/2025Other chronic pain (ICD-10 - G89.29)07/26/2025Kidney stone (ICD-10 - N20.0)cardiac clearance ordered and completed, pt had a PE in November of 2022, at that time underwent cardiac history but he never f/u. HIs ECG for upcoming procedure showed ST changes suspcious for ischemia, therefore requested a clearance. He did see [facility] and has low risk. He is medically cleared. He may stop is xeralto as directed by urology and restart when able07/26/2025History of pulmonary embolus (PE) (ICD-10 - Z86.711)ok to stop xeralto for procedure, restart as soon as recommended by urology.05/10/2025Other chronic pain (ICD-10 - G89.29)You are being prescribed a control substance. These can be habit forming and will be used for a short period a time. Refills will be determined based on symptoms. Do not mix these medications with alcohol, do not share these medications, do not sell these medication, do not drive or operate heavy [employer] while taking these medications. OARRS report was reviewed. No misuse or abuse is noted. Pt verbalizes understanding.11/04/2024PVD (peripheral vascular disease) (ICD-10 - I73.9)stable, continue medications.02/01/2025Primary insomnia (ICD-10 - F51.01)good sleep hygiene discussed. Avoid stimulants such as tv, electronic, exercises before bed. Relaxation techniques also discussed. pt enc to take 5mg to 10 mg melatonin. If symptoms persist will discuss prescription sleep aides02/01/2025Hyperlipidemia, unspecified hyperlipidemia type (ICD-10 - E78.5)lipid panel every 3-6 months with CMP to monitor liver and renal function, adjust medications accordingly. Discussed a low chol diet. Enc moderate daily exercise. If you develop any muscle cramping,leg cramps/pain, intolerance to medication please RTO.05/10/2025Vitamin D deficiency, unspecified (ICD-10 - E55.9)Will check Vit D level, continue Vitamin D replacement as advised. Discussed diet high in Vit D, also 10-15 minutes of direct sunlight is the best source of Vit D.05/10/2025High blood triglycerides (ICD-10 - E78.1)lipid panel every 3-6 months with CMP to monitor liver and renal function, adjust medications accordingly. Discussed a low chol diet. Enc moderate daily exercise. If you develop any muscle cramping, leg cramps/pain, intolerance to medication please RTO.02/01/2025PVD (peripheral vascular disease) (ICD-10 - I73.9)continue with chol and bp control.05/10/2025Encounter for prostate cancer screening (ICD- 10 - Z12.5)due for annual screening via blood test, discussed prostate cancer is important, if caught early has a high cure rate.02/01/2025Moderate episode of recurrent major depressive disorder (ICD-10 - F33.1)Continue medication, potential side effects were discussed as well as proper administration of medic ation. Pt verbalizes understanding. Pt is aware not to stop medication suddenly and to come to office to be weaned down, abrupt discontinuation can cause withdrawal symptoms. Stable mood today, no c/o SI/HI, if feelings occur pt to call 911/ER. Discussed coping mechanisms such as exercise, group therapy, and counseling.02/01/2025Vitamin D deficiency, unspecified (ICD-10 - E55.9)Will check Vit D level, continue Vitamin D replacement as advised. Discussed diet high in Vit D, also 10-15 minutes of direct sunlight is the best source of Vit D.02/01/2025radha zuniga (ICD-10 - L90.8)pt requested medication refills today, refills sent per guzzbml2302/01/2025OtherBody Mass Index: Care Instructions material was kbrhxdy2306/07/2025OtherBody Mass Index: Care Instructions material was published, Body Mass Index: Care Instructions material was printed Plan Of Treatment Next Appt Details Provider Name:Alejandra Edmonds, 08/09/2025 02:30:00 PM, [address] [facility], [facility], [place], [address], Insurance Providers Payer Name Payer Address Payer Phone Subscriber Number Group Number Insured Name Patient Relationship to Insured Coverage Start Date Coverage End Date MEDICARE CGS [address] [place] [phone] [id number] Linda VAUGHN - patient is the rvwhftw5303/29/2021MEDICAID SEC TO [facility] [address] [place] [id number], Lizetgenhoa - patient is the sihmkuk6807/31/2021[facility] 10/29/22 [address] [place] [phone] - patient is the gzulbxr4807/30/2019zMEDICAID [facility]BD [facility] [address] [place] [id number], FERMINGsatonhoa - patient is the vxncafi6006/29/2019[place] MEDICAID [place] [address] [place] [address] [id number], Lizetgenhoa - patient is the vmsmctf7904/24/2022 Medical (General) History Medical History History ICD Code Depression, SAD Surgical History Surgery Date(Month/Year) ankle , see's laser surgery on left leg d/t DVT Butterfly procedure left foot-Dr. Saleh 07/2018LEFT ANKLE SURGERY;PIN REMOVAL01/2022Hospitalization History Reason Date(Month/Year) [facility] [place] Kidney stones 05/23/25 Blood Clot in Lung
== END 2025-08-04 12:38 | disposition home or self-care (01) ==
LOC: PST 12:37
PROVIDERS: Visit Provider Urology
DX: Z01.818 Encounter for other preprocedural examination (principal); N20.1 Calculus of ureter

== ENCOUNTER 2025-08-11 07:13 | Day surgery (SDC) | payer MEDICARE, MEDICAID, SELFPAY ==
--- OUTSIDE RECORDS SUMMARY | 2025-01-10 08:30 | XMS_ITS ---
Author Organization [facility] Address [address] [place] [address] Care Team Providers Care Chief Steward/Stewardess Name Role Phone Alejandra Edmonds Primary Care Provider [phone] Li Junior [phone] REASON FOR VISIT BH F/U rescheduled from 01/11 Social History Sex Assigned At : Social History Observation Description Sex Assigned At Male Encounters Encounter Location Date Provider Diagnosis [facility] [address] [place] [address] 01/10/2025 Li Quiñones Plan Of Treatment Next Appt Details Provider Name:Alejandra Edmonds, 11/08/2025 02:00:00 PM, [facility] E [facility], [place], [address], Progress Notes * HUI VAUGHN PDOB:[birth year] (60 yo M)Acc No.[id number]:01/10/2025 Behavioral Health Patient: Donnie HUI ROBLES :?Li QuiñonesDOB:1965???Age:59 Y???Sex:Male Date:01/10/2025Phone:[phone]:[address] [place], [place] [address], [place] Pcp:Alejandra Edmonds Subjective: * Chief Complaints: * B H F/U rescheduled from 01/11 * Electronic signature of CATHRYN So FNP on 08/11/2025 at 07:15 AM EST Sign off status: Pending * Provider: Keri Quiñones Date: 0 01/10/2025 Generated for Printing/Faxing/eTransmitting on:?08/11/2025 07:15 AM EST
--- OUTSIDE RECORDS SUMMARY | 2025-01-11 09:00 | XMS_ITS ---
Author Organization [facility] Address [address] [place] [address] Care Team Providers Care Information Support Project Manager Name Role Phone Alejandra Edmonds Primary Care Provider [phone] Li Junior [phone] REASON FOR VISIT 1 year f/u Social History Sex Assigned At : Social History Observation Description Sex Assigned At Male Encounters Encounter Location Date Provider Diagnosis [facility] [address] [place] [address] 01/11/2025 Li Quiñones Plan Of Treatment Next Appt Details Provider Name:Alejandra Edmonds, 11/08/2025 02:00:00 PM, [address] [facility] [place] [place], [address], Progress Notes * HUI VAUGHN PDOB:[birth year] (60 yo M)Acc No.[id number]:01/11/2025 Behavioral Health Patient: HUI PARSONS :?Li QuiñonesDOB:1965???Age:59 Y???Sex:Male Date:01/11/2025Phone:[phone]:[address] [place], [place]-[address] Pcp:Alejandra Edmonds Subjective: * Chief Complaints: * 1 year f/u * Electronic signature of CATHRYN So FNP on 08/11/2025 at 07:16 AM EST Sign off status: Pending * Provider: Keri Quiñones Date: 0 01/11/2025 Generated for Printing/Faxing/eTransmitting on:?08/11/2025 07:16 AM EST
--- OUTSIDE RECORDS SUMMARY | 2025-02-03 05:00 | XMS_ITS ---
Author Organization [facility] es Address [address] [place] [address] Care Team Providers Care Solvent Process Extractor Operator Name Role Phone Alejandra Edmonds Primary Care Provider [phone] Li Quiñones Nina [phone] REASON FOR VISIT 3month f/u Social History Sex Assigned At : Social History Observation Description Sex Assigned At Male Encounters Encounter Location Date Provider Diagnosis [address] [address] 02/03/2025 Alejandra Edmonds Plan Of Treatment Next Appt Details Provider Name:Alejandra Edmonds, 11/08/2025 02:00:00 PM, [address] [place] [address], [address], Progress Notes * HUI VAUGHN PDOB:[birth year] (60 yo M)Acc No.[id number]:02/03/2025 Progress Notes Patient: Donnie HUI ROBLES :?Alejandra Edmonds NPDOB:1965???Age:59 Y???Sex: MaleDate:02/03/2025Phone:[phone]:[address] [place] [address] Subjective: * Chief Complaints: * 3 month f/u * Electronic signature of Alejandra Edmonds CNP on 08/11/2025 at 07:16 AM ESTSign off status: Pending * Provider: Uche Edmonds NP Date: 0 02/03/2025 Generated for Printing/Faxing/eTransmitting on:?08/11/2025 07:16 AM EST
--- OUTSIDE RECORDS SUMMARY | 2025-05-05 05:00 | XMS_ITS ---
Author Organization [facility] Address [address] [place] [address] Care Team Providers Care Head Animal Keeper Name Role Phone Alejandra Edmonds Primary Care Provider Ishmael Li Wood [phone] REASON FOR VISIT 3month f/u Social History Sex Assigned At : Social History Observation Description Sex Assigned At Male Encounters Encounter Location Date Provider Diagnosis [address] [address] 05/05/2025 Alejandra Edmonds Plan Of Treatment Next Appt Details Provider Name:Alejandra Edmonds, 11/08/2025 02:00:00 PM, [address] [place] [address] [place], [address], Progress Notes * HUI VAUGHN PDOB:[birth year] (60 yo M)Acc No.[id number]:05/05/2025 Progress Notes Patient: Donnie HUI ROBLES :?Alejandra Edmnods NPDOB:1965???Age:60 Y???Sex: MaleDate:05/05/2025Phone:[phone]:[address] [place] [address] Subjective: * Chief Complaints: * 3 month f/u Billing Information: * Procedure Codes: * Electronic signature of Alejandra Edmonds CNP on 08/11/2025 at 07:16 AM ESTSign off status: Pending * Provider: Uche Edmonds NP Date: 0 05/05/2025 Generated for Printing/Faxing/eTransmitting on:?08/11/2025 07:16 AM EST
[2025-07-15 13:02] VITALS: BP 130/89; PULSE 86; TEMP 36.4; O2SAT 99; BMI 31.7
--- OUTSIDE RECORDS SUMMARY | 2025-08-09 09:30 | XMS_ITS ---
Author Organization [facility] Address [address] [place] [address] Care Team Providers Care Daily Release And Dupe Printer Name Role Phone Alejandra Edmonds Primary Care Provider [phone] Ishmael Li Wood [phone] Allergies No Known Allergies REASON FOR VISIT 3month f/u Medications Medication SIG (Take, Route, Frequency, Duration) Notes Start Date End Date Status Cyclobenzaprine HCl 10 MG Tablet 1 tablet Orally twice a day; Duration: 30 days 3ActiveDesvenlafaxine Succinate ER 50 MG Tablet Extended Release 24 HourTAKE 1 TABLET BY MOUTH EVERY DAY; Duration: 30ActiveTemazepam 30 MG Capsule1 capsule at bedtime Orally Once a day; Duration: 30 days5Active hydrOXYzine HCl 50 MG TabletTAKE 1 TABLET BY MOUTH AT NIGHT FOR 30 DAYS.; Duration: 30ActiveHYDROcodone-Acetaminophen 5-325 MG Tablet 1 tablet Orally every 6 hrs; Duration: 30 days As needed /5ActiveTamsulosin HCl 0.4 MG CapsuleTAKE 1 CAPSULE BY MOUTH EVERY DAY 30 minutes after same meal each day until stone passess Oral; Dura tion: 10 DaysActiveIbuprofen 600 MG TabletOral; Duration: 7 DaysActive Atorvastatin Calcium 20 MG Tablet1 tablet Orally Once a day; Duration: 90 days ActiveQUEtiapine Fumarate 50 MG TabletTAKE 1 OR 2 TABLETS BY MOUTH AT BEDTIME; Duration: 90ActiveOndansetron 4 MG Tablet DisintegratingOral; Duration: 4 Days ActiveXarelto 20 MG TabletTAKE 1 TABLET BY MOUTH EVERY DAY; Duration: 30Active Vitamin D (Ergocalciferol) 1.25 MG (37800 UT) CapsuleTAKE 1 CAPSULE BY MOUTH 1 TIME A WEEK; Duration: 84 daysActiveFlonase Allergy Relief 50 MCG/ACT Suspension 1 spray in each nostril Nasally Once a day; Duration: 1 monthActiveVraylar 3 MG CapsuleTAKE 1 CAPSULE BY MOUTH EVERY DAY; Duration: 30ActivePentoxifyllineActive Social History Tobacco Use: Social History Observation Description Date Details (start date - stop date) Never Smoker NA - NA Sex Assigned At [...] in the past year?Less than monthly (1 point)Yducwk1RtzijhuwnayjdjJazvznikThtutqf Use:Social InfoQuestionAnswerNotesTobacco Control (Standard)Tobacco use: Nonsmoker Vital Signs Temperature 97.4 degrees Fahrenheit 08/09/20 25 Blood pressure systolic 148 mm Hg 08/09/20 25 Blood pressure diastolic 86 mm Hg 025 Heart Rate 106 /min 08/09/2025 Respiratory Rate 20 /min 08/09/2025 Height 6ft 2 in in 08/09/2025 Weight 244 lbs 08/09/2025 BMI 31.32 kg/m2 08/09/2025 Oximetry 96 % 08/09/2025 Encounters Encounter Location Date Provider Diagnosis [address] [address] 08/09/2025 Alejandra Spasic Kidney stone N20.0 ; Moderate episode of recurrent major depressive disorder F33.1 ; PVD (peripheral vascular disease) I73.9 ; Chronic obstructive pulmonary disease, unspecified COPD type J44.9 ; Other chronic pain G89.29 ; Other chronic pain G89.29 and Hyperlipidemia, unspecified hyperlipidemia type E78.5 Assessments Encounter Date Diagnosis (ICD Code) Assessment Notes Treatment Notes Treatment Clinical Notes Section Notes 08/09/2025 Kidney stone (ICD-10 - N20.0) Persistent pain attributed to kidney stone. Pain managed with hydrocodone; prescription delays haveled to periods without medication. Patient prefers hydrocodone over oxycodone for pain control. Recent ER visits for blood work and pain management. - Refilled hydrocodone prescription for pain management. 08/09/2025Moderate episode of recurrent major depressive disorder (ICD-10 [...] mechanisms such as exercise, group therapy, and counseling.08/09/2025PVD (peripheral vascular disease) (ICD-10 - I73.9)stable, no new sores, continue medications as abrkkukhjh97/11/2025hronic obstructive pulmonary disease, unspecified COPD type (ICD-10 - J44.9)COPD stable, continue medications as prescribed. Smoking cessation is encouraged. CP/pressure/sob, cough with fever, chills ER, 911 08/09/2025Other chronic pain (ICD-10 - G89.29)Pt with chronic pain. appropriate referrals and treatments have been completed by specialist w/o significant improvement in pain. Not a surgical candidate. Will prescribe pain medications, pain contract is on file, random drug screens obtained. No side effects reported, OARRS reviewed and consistent with same provider and pharmacy. Pt understands that lost of medications, stolen, shared, sold, miss-use of any kind will terminate contract, also no increase in dosage or quanity will be provided, if additional medication is needed, will discuss referral at that time. 08/09/2025Other chronic pain (ICD-10 - G89.29) Ongoing pain requiring regular medication management. Hydrocodone used for chronic pain relief. - Refilled hydrocodone prescription for chronic pain management. 08/09/2025Hyperlipidemia, unspecified hyperlipidemia type (ICD-10 - E78.5)lipid panel every 3-6 months with CMP to monitor liver and renal function, adjust medications accordingly. Discussed a low chol diet. Enc moderate daily exercise. If you develop any muscle cramping, leg cramps/pain, intolerance to medication please RTO.08/09/2025OtherBody Mass Index: Care Instructions material was printed Plan Of Treatment Medication Medication Name Sig Start Date Stop Date Notes HYDROcodone-Acetaminophen 5- 325 MG Tablet 1 tablet Orally every 6 hrs; Duration: 30 days 08/10/2025 09/08/2025 Treatment Notes Assessment Notes Kidney stone Persistent pain attributed to kidney stone. Pain managed with hydrocodone; prescription delays have led to periods without medication. Patient prefers hydrocodone over oxycodone for pain control. Recent ER visits for blood work and pain management. - Refilled hydrocodone prescription for pain management. Moderate episode of recurren t major depressive disorder Continue medication, potential side effe cts were discussed as well as proper administration of medication. Pt verbalizes understanding. Pt is aware not to stop medication suddenly and to come to office to be weaned down, abrupt discontinuation can cause withdrawal symptoms. Stable mood today, no c/o SI/HI, if feelings occur pt to call 911/ER. Discussed coping mechanisms such as exercise, group therapy, and counseling. PVD (peripheral vascular disease) stable , no new sores, continue medications as prescribed Chronic obstructive pulmonar y disease, unspecified COPD type COPD stable, continue medications as prescribed. Smoking cessation is encouraged. CP/pressure/sob, cough with fever, chills ER, 911 Other chronic pain Pt with chronic pain . appropriate referrals and treatments have been completed by specialist w/o significant improvement in pain. Not a surgical candidate. Will prescribe pain medications, pain contract is on file, random drug screens obtained. No side effects reported, OARRS reviewed and consistent with same provider and pharmacy. Pt understands that lost of medications, stolen, shared, sold, miss-use of any kind will terminate contract, also no increase in dosage or quanity will be provided, if additional medication is needed, will discuss referral at that time. Other chronic pain Ongoing pain requiring regular medication management. Hydrocodone used for chronic pain relief. - Refilled hydrocodone prescription for chronic pain management. Hyperlipidemia, unspecified hyperlipidemia type lipid panel every 3-6 months with CMP to monitor liver and renal function, adjust medications accordingly. Discussed a low chol diet. Enc moderate daily exercise. If you develop any muscle cramping, leg cramps/pain, intolerance to medication please RTO. Other Body Mass Index: Car e Instructions material was printed Next Appt Details Follow Up: 3 Months, Reason: Provider Name:Alejandra Edmonds, 11/08/2025 02:00:00 PM, [place], [address], History and Physical Notes * HPI (History of Present Illness) CategorySub-CategoryDetailNotesCategory NotesDepression ScreeningPHQ-2 (2015 Edition)Little interest or pleasure in doing things?: Not at allFeeling down, depressed, or hopeless?: Not at allTotal Score: 0Constitutional patient comes in today for 3 month f/u no concerns, patient is have stone removal surgery on 08/11. patient seen cardiology and stating that they did all the testing needed. pt cleared for his procedure. Jose Angel Tobar, a 60-year-old male, presented for acute pain management due to a kidney stone. He reported persistent pain, managed with hydrocodone, but frequent prescription delays have left him without adequate relief. He is concerned about running out of medication before his procedure and prefers hydrocodone over oxycodone for pain control. Examination CategorySub-CategoryDetailNotesCategory NotesGeneral ExaminationCARDIOVASCULAR: Regular rate and [...] ANGEL TOBAR PDOB:[birth year] (60 yo M)Acc No.[id number]:08/09/2025 Progress Notes Patient: JOSE ANGEL PARSONS :?Alejandra Edmonds, NPDOB:1965???Age:60 Y???Sex: MaleDate:08/09/2025Phone:[phone]:[address] [facility], [id number] Subjective: * Chief Complaints: * 3 month f/u * HPI: ???Constitutional:? patient comes in today for 3 month f/u no concerns, patient ishave stone removal surgery on 08/11. patient seen cardiology and stating that they did allthe testing needed. pt cleared for his procedure. Jose Angel Tobar, a 60-year-old male, presented for acute pain management due to a kidney stone. He reported persistent pain, managed with hydrocodone, but frequent prescription delays have left him without adequate relief. He is concerned about running out of medication before his procedure and prefers hydrocodone over oxycodone for pain control. ???Depression Screening:?PHQ-2 (2015 Edition)?Little interest or pleasure in doing things? Not at all ?Feeling down, depressed, or hopeless??Not at all ?Total Score?0 * ROS: ???General Review of Systems:?General?Denies fever, [...] in bowel habits..?Genitourinary?Denies urgency, frequency, dysuria, hem aturia.?Musculoskeletal?flank pain.?Dermatology?Denies rashes or lesions.?N eurological?Denies any lightheadedness, dizziness, headache, new numbness or tingling in handsor feet. .?Psychiatric?Denies anxiety, depression, Denies suicidal ideation, [...] stic Procedure: Blood Clot in Lung ? [facility] [place] Kidney stones 05/23/25? Hospitalization Verified.? * Family [...] year??Less than monthly (1 point) ?Points?3 ?Interpretation?Negative ???Tobacco Use:?Tobacco Control (Standard)?Tobacco use:?Nonsmoker ???Social History Verified. * Medications: T akingPentoxifylline Flonase Allergy Relief 50 MCG/ACT Suspension 1 spray in each nostril Nasally Once a day Vraylar 3 MG Capsule TAKE 1 CAPSULE BY MOUTH EVERY DAY Xarelto 20 MG Tablet TAKE 1 TABLET BY MOUTH EVERY DAY Vitamin D (Ergocalciferol) 1.25 MG (58693 UT) Capsule TAKE 1 CAPSULE BY MOUTH 1 TIME A WEEK Atorvastatin Calcium 20 MG Tablet 1 tablet Orally Once a day QUEtiapine Fumarate 50 MG Tablet TAKE 1 OR 2 TABLETS BY MOUTH AT BEDTIME Tamsulosin HCl 0.4 MG Capsule TAKE 1 CAPSULE BY MOUTH EVERY DAY 30 minutes after same meal each day until stone passess Oral Ibuprofen 600 MG Tablet Oral Ondansetron 4 MG Tablet Disintegrating Oral Temazepam 30 MG Capsule 1 capsule at bedtime Orally Once a day hydrOXYzine HCl 50 MG Tablet TAKE 1 [...] DAY Taking Vitamin D (Ergocalciferol) 1.25 MG (75768 UT) Capsule TAKE 1 CAPSULE BY MOUTH 1 TIME A WEEK Taking Atorvastatin Calcium 20 MG Tablet 1 tablet Orally Once a day Taking QUEtiapine Fumarate 50 MG Tablet TAKE 1 OR 2 TABLETS BY MOUTH AT BEDTIME Taking Tamsulosin HCl 0.4 MG Capsule TAKE 1 CAPSULE BY MOUTH EVERY DAY 30 minutes after same meal each day until stone passess Oral Taking Ibuprofen 600 MG Tablet Oral Taking Ondansetron 4 MG Tablet Disintegrating Oral Taking Temazepam 30 MG Capsule 1 capsule at bedtime Orally Once a day Taking hydrOXYzine HCl 50 MG Tablet TAKE 1 [...] Vitals: H t: 6ft 2 in, Wt: 244 lbs, BMI:31.32Index, Temp: 97.4 F, BP: 148/86 mm Hg, SaO2:96%, HR: 106 /min, RR: 20 /min. * Examination: ???General [...] Assessment: * Assessment: 1.?Kidney stone - N20.0 (Primary)???2.?Moderate episode of recurrent major depressive disorder - F33.1???3.?PVD (peripheral vascular disease) - I73.9? ??4.?Chronic obstructive pulmonary disease, unspecified COPD type - J44.9?? ?5.?Other chronic pain - G89.29???6.?Other chronic pain - G89.29? ??7.?Hyperlipidemia, unspecified hyperlipidemia type - E78.5??? Plan: * Treatment: Notes: Persistent pain attributed to kidney stone. Pain managed with hydrocodone; prescription delays have led to periods without medication. Patient prefers hydrocodone over oxycodone for pain control. Recent ER visits for blood work and pain management. - Refilled hydrocodone prescription for pain management.??2.?Moderate episode of recurrent major depressive disorder? Notes: Continue medication, potential side effects were discussed as well as proper administration of medication. Pt verbalizes understanding. Pt is aware not to stop medication suddenly and to come to office to be weaned down, abrupt discontinuation can cause withdrawal symptoms. Stable mood today, no c/o SI/HI, if feelings occur pt to call 911/ER. Discussed coping mechanisms such as exercise, group therapy, and counseling.??3.?PVD (peripheral vascular disease)? Notes: stable, no new sores, continue medications as prescribed??4.?Chronic obstructive pulmonary disease, unspecified COPD type? Notes: COPD stable, continue medications as prescribed. Smoking cessation is encouraged. CP/pressure/sob, cough with fever, chills ER, 911??5.?Other chronic pain? Refill HYDROcodone-Acetaminophen Tablet, 5-325 MG, 1 tablet, Orally, every 6 hrs As needed, 30 days, 45 Tablet, Refills 0.?? Notes: Pt with chronic pain. appropriate referrals and treatments have been completed by specialistw/o significant improvement in pain. Not a surgical candidate. Will prescribe pain medications, pain contract is on file, random drug screens obtained. No side effects reported, OARRS reviewed and consistent with same provider and pharmacy. Pt understands that lost of medications, stolen, shared, sold, miss-use of any kind will terminate contract, also no increase in dosage or quanity will be provided, if additional medication is needed, will discuss referral at that time.??6.?Other chronic pain? Notes: Ongoing pain requiring regular medication management. Hydrocodone used for chronic pain relief. - Refilled hydrocodone prescription for chronic pain management.?? 7.?Hyperlipidemia, unspecified hyperlipidemia type? Notes: lipid panel every 3-6 months with CMP to monitor liver and renal function, adjust medications accordingly. Discussed a low chol diet. Enc moderate daily exercise. If you develop any muscle cramping, leg cramps/pain, intolerance to medication please RTO.??8.?Others? Notes: Body Mass Index: Care Instructions material was printed?? * Procedure Codes: 3 079F DIAST BP 80-89 MM [id number] RVW MEDS BY RX/ IN [id number] [facility] PPS EST [id number] SYST BP >= 140 MM HG * Preventive Medicine: ??COUNSELING:?Communication to patient:?Counseling for Nutrition Provided?Yes ?Counseling for Physical Activity Provided?Yes ?BMI management provided?Yes ?Nutrition/Dietary Counseling provided Yes ?DEPRESSION FOLLOW UP?Counseling for depression?08/09/2025 * Follow Up: 3 Months Billing Information: * Procedure Codes: 3079F DIAST BP 80-89 MM HG. 1160F RVW MEDS BY RX/DR IN RCRD. [id number] [facility] PPS EST PT. 3077F SYST BP >= 140 MM HG. * ign off status: Completed true * Provider: Uche Edmonds NP Date: 10/09/2024 Generated for Printing/Faxing/eTransmitting on:?08/11/2025 07:17 AM EST
[2025-08-11] VITALS (9 sets, daily range): BP systolic 126–150; BP diastolic 83–98; PULSE 81–112; TEMP 36.2–36.5; O2SAT 94–97; BMI 32.2
--- OUTSIDE RECORDS SUMMARY | 2025-08-11 07:16 | XMS_ITS | Clinical Summary ---
Author Organization [facility] Healthcare Address [address] [place] [address] Care Team Providers Care Machine Design Checker Name Role Phone Unavailable Primary Care Provider Unavailabl e Social History Tobacco UseTypesPacks/DayYears UsedDateSmoking Tobacco: Never AssessedSex and Gender InformationValueDate RecordedSex Assigned at BirthNot on fileLegal Sex Male12/11/2022 6:55 PM EDTGender IdentityNot on fileSexual OrientationNot on file Last Filed Vital Signs Vital SignReadingTime TakenCommentsBlood Wamydumh468/7303/06/2022 12:00 PM EDT Pulse--Temperature--Respiratory Rate--Oxygen Saturation--Inhaled Oxygen Concentration--Weight--Rcgyic963 cm (6' 2 )03/06/2022 12:00 PM EDTBody Mass Index-- Plan of Treatment Not on file Insurance
--- OUTSIDE RECORDS SUMMARY | 2025-08-11 07:16 | XMS_ITS | Clinical Summary ---
Author Organization [facility] Address [address] [place], [place] [id number] Care Team Providers Care Travel Professional Name Role Phone Alejandra Elder Unavailable [phone] SpasiAlejandra damico MOLD STRIPPER Unavailable [phone] Alejandra Edmonds MOLD STRIPPER Primary Care Provider [phone] Niles Ho Unavailable [phone] Allergies No known active allergies Medications [...] number is lower riskNot on file09/04/2020Data from: https://www.neighborhoodatlas.[facility]/. Last address used for calculationNot on file09/04/2020Sex and Gender InformationValueDate RecordedSex Assigned at BirthNot on fileLegal PoeDefa21/02/2012 9:01 AM ESTGender Identity Not on fileSexual OrientationNot on file Last Filed Vital Signs Vital SignReadingTime TakenCommentsBlood Jrvpcpye603/9408/20/2021 12:19 PM EST Wceqd189308/20/2021 12:19 PM IBQFaemnolgbyf24.3 ??C (86.6 ??F)08/20/2021 12:19 PM ESTRespiratory Ziwo607603/09/2018 9:45 AM EDTOxygen Udwicnfhvz21%08/20/2021 12:19 PM ESTInhaled Oxygen Concentration--Goianj25.5 kg (210 lb 8 oz)08/08/2021 2:59 PM WBSLljqds323 cm (6' 2 )08/08/2021 2:59 PM ESTBody Mass Index27.03110/08/2020 2:59 PM EST Plan of Treatment Health MaintenanceDue DateLast DoneCommentsAnxiety Qgxmzxrrf06/13/1981Depression Rqevzysqa97/13/1981HIV Pfbrcujnw20/13/1981Hepatitis C Blgfadwil94/13/1981 DTaP,Tdap,Td Vaccine (1 - Tdap)1982Lipid Qphzxdyzr43/13/1998CT Yxqeytbbhstd11/13/2008Cologuard (FIT-DNA)02/09/20082515Wqwnsjpuhkw37/13/2008 Colorectal Cancer Wvewtfjqg50/13/2008Fecal Occult Blood02/09/2008Prostate Cancer Screening Pbhisileqv13/13/9193Dufprpyggqixj31/13/2008Pneumococcal Vaccine: 50+ (3 of 3 - PCV20 or PCV21), 06/13/2015Diabetes Screening Covid-19 Vaccine ( season), 01/04/2021, 12/07/2020Influenza Vaccine (#1)511/10/2020, 05/30/2016, 05/23/2016, Additional history existsRSV Vaccine (1 - 1-dose 75+ series) 2038Shingrix LhszovcCroumjxsy23/22/2021, 10/03/2020 Procedures Procedure NamePriorityDate/TimeAssociated DiagnosisCommentsCOMPREHENSIVE METABOLIC TLPBOYwusxfj52/06/2019 12:10 PM EST Atrophie nadia from Last 3 Months or Most Recently Relevant to Health Maintenance Results * (ABNORMAL) COMP METABOLIC PANEL (12/02/2018 12:10 PM EST)ComponentValueRef RangeTest MethodAnalysis TimePerformed AtPathologist SignatureProtein, Total 7.66.3 - 8.0 g/dL12/02/2018 5:02 PM EST[facility] LaboratoriesAlbumin4.7 3.9 - 4.9 g/dL12/02/2018 5:02 PM [facility] LaboratoriesCalcium9.68.5 - 10.2 mg/dL12/02/2018 5:02 PM [facility] LaboratoriesBilirubin, Total0.40.2 - 1.3 mg/dL12/02/2018 5:02 PM [facility] Alkaline Qgovxqrglvw8803 - 113 U/L12/02/2018 5:02 PM [facility] SgjugruvsmasRCQ1174 - 40 U/L12/02/2018 5:02 PM [facility] SrqxtwockpkvPdvliqv483(H)74 - 99 mg/dL12/02/2018 5:02 PM [facility] LaboratoriesComment: The [place] Diabetes Association (ADA) provides guidance for cutoff [...] Standards of Medical Care in Diabetes 2016, [place] [employer]. Diabetes Care. 2016.39(Suppl 1). UNV912 - 24 mg/dL12/02/2018 5:02 PM [facility] LaboratoriesCreatinine 1.130.73 - 1.22 mg/dL12/02/2018 5:02 PM [facility] LaboratoriesSodium 090708 - 144 mmol/L12/02/2018 5:02 PM [facility] LaboratoriesPotassium 4.43.7 - 5.1 mmol/L12/02/2018 5:02 PM [facility] LaboratoriesChloride 25445 - 105 mmol/L12/02/2018 5:02 PM [facility] KygnmdtngsmvBQ87342 - 30 mmol/L12/02/2018 5:02 PM [facility] LaboratoriesAnion Qvd349 - 18 mmol/L12/02/2018 5:02 PM [facility] XepprlkphqbePQT0200 - 54 U/L 12/02/2018 5:02 PM [facility] LaboratorieseGFR->60 12/02/2018 5:02 PM [facility] LaboratorieseGFR-All Other Races>60. 12/02/2018 5:02 PM [facility] LaboratoriesComment: eGFR (Estimated GFR) Units of [...] III, MD LABORATORYFinal ResultPerforming OrganizationAddressCity/State/ZIP CodePhone Number [facility] [address] [place] [address] [facility] [address] [place] [address] from Last 3 Months or Most Recently Relevant to Health Maintenance Insurance Care Teams Team MemberRelationshipSpecialtyStart DateEnd Date Alejandra Edmonds NP [address] [place] [address] PCP - GeneralFamily Medicine12/02/18 Alejandra Elder ReferringWound Care09/29/17 Alejandra Edmonds NP [address] [place] [address] ReferringFamily Medicine11/13/18 Niles Ho [facility] [address] ReferringPodiatry02/17/19
--- OUTSIDE RECORDS SUMMARY | 2025-08-11 07:16 | XMS_ITS | Clinical Summary ---
Author Organization [facility] Address [address] [place] [address] Phone Care Team Providers Care Private Duty Rn Name Role Phone Alejandra Edmonds APRN-PUNCH CARD OPERATOR Primary Care Provider + Allergies No known [...] use, clean tip and replace cap.Active HYDROcodone-acetaminophen ([place]) 5-325 mg tablet Take 1 tablet by [...] 1 (one) time per week in the editor trade journal..07/21/2025 Discontinued(Therapy completed) cariprazine HCl (VRAYLAR ORAL) Take 1 capsule by mouth once daily.07/21/2025Discontinued(Dose adjustment) Active Problems ProblemNoted DateDiagnosed DatePre-operative chyvfbmrd87/23/2025BMI 31.0-31.9,adult07/21/2025Personal history of COVID-191nticoagulated by anticoagulation agactkwoy45/05/2023Encounter to discuss test enkvrmx4307/03/2023 Assessment & Plan (07/05/2023 3:29 PM EDT): [...] symptoms, completed adequate duration of anticoagulation. Mixed ruuirzisenifmw20/28/2023 Assessment & Plan (07/05/2023 3:22 PM EDT): Patient remains on simvastatin 40 mg daily without any untoward effects Lipid profile from February 2023 is at target with LDL of 68 triglycerides 120 HDL 49. Continue same Sinus rnnozdllebn91/28/2023 Resolved Problems ProblemNoted DateDiagnosed DateResolved DateChronic obstructive pulmonary disease, mhuunoyggkb74Hypertension Encounters DateTypeDepartmentCare AcavDnmksanhtmw05/23/2025 3:00 PM EDTOffice Visit [facility] [address] [address] Anette Kim, APPLICATION SUPPORT ADMINISTRATOR-PUNCH CARD OPERATOR Pre-operative clearance (Primary Dx) Discharge Disposition: Home07/21/2025Travelfrom Last 3 Months Immunizations ImmunizationAdministration DatesNext DueFlu vaccine (IIV4), preservative free *Check age/dose*06/10/2022Influenza, Oxemyvyqcmi68/02/2021Influenza, seasonal, akvbjwpfpb30/28/2023,05/30/2016,06/13/2015MMR vaccine, subcutaneous (MMR II) 03/25/2016Moderna COVID-19 vaccine, bivalent, blue cap/yusuf label *Check age/dose*06/10/2022Moderna SARS-CoV-2 Odwhnjvjpdd68/18/2021,01/04/2021, 12/07/2020neumococcal conjugate vaccine, 13-valent (PREVNAR 13)06/13/2015 Pneumococcal polysaccharide vaccine, 23-valent, age 2 years and older (PNEUMOVAX 23)07/11/2016Zoster vaccine, recombinant, adult (SHINGRIX)01/18/2021,10/03/2020 Family History Medical HistoryRelationNameCommentsHeart diseaseMotherRelationNameStatusComments Mother Social History Tobacco UseTypesPacks/DayYears UsedDateSmoking Tobacco: DsgzsqFgmjgsuggx373 Started: 1980Smokeless Tobacco: NeverAlcohol UseStandard Drinks/WeekCommentsNot Currently0 (1 standard drink = 0.6 oz pure alcohol)socialPHQ-2AnswerDate RecordedPatient Health Questionnaire-2 Mudra290Sex and Gender InformationValueDate RecordedSex Assigned at BirthNot on fileLegal SexMale 11/11/2022 2:48 PM ESTGender IdentityNot on fileSexual OrientationNot on file Last Filed Vital Signs Vital SignReadingTime TakenCommentsBlood Ivjmnkay947/8610 3:12 PM EDT Wxdti0174/23/2025 3:12 PM EDTTemperature--Respiratory Rate--Oxygen Saturation-- Inhaled Oxygen Concentration--Arahzx378 kg (249 lb)07/21/2025 3:12 PM EDTHeight 188 cm (6' 2 )07/21/2025 3:12 PM EDTBody Mass Index31.9710/ 3:12 PM EDT Plan of Treatment Health MaintenanceDue DateLast DoneCommentsCT Qkaxyqnvbhut1963Colonoscopy 1963Colorectal Cancer Bayuqfwoz1963FIT-DNA (Cologuard)1963FIT 1963HIV Tvfpfagli1963Lipid Panel1963Medicare Annual Wellness Visit (AWV)1965 5437Qfuxcswtdvekw1963Hepatitis C Grtuobkrz29/13/1981 DTaP/Tdap/Td Vaccines (1 - Tdap)1985PSA Prostate Cancer Screening 2013Pneumococcal Vaccine (3 of 3 - PCV20 or PCV21), 06/13/2015Influenza Vaccine (#1)509/, 06/10/2022, 07/31/2021, Additional history existsCOVID-19 Vaccine (4 - 2024- season)2025 06/10/2022, 08/16/2021, 01/04/2021, Additional history existsRSV High Risk: (Elderly (60+) or Population) (1 - 1-dose 75+ series)2038MMR FfawlnrtWjpfbeusk84/27/2016Zoster HdxotiycGktbhvbll35/22/2021, 10/03/2020HIB VaccinesAged OutNo longer eligible based on [...] abnormal ECG Authorizing ProviderResult TypeResult StatusAnette Kim APPLICATION SUPPORT ADMINISTRATOR-CNPECG ORDERABLES Final ResultPerforming OrganizationAddressCity/State/ZIP CodePhone Number CPACS from Last 3 Months Insurance Care Teams Team MemberRelationshipSpecialtyStart DateEnd Date Alejandra Edmonds APRN-PUNCH CARD OPERATOR [address] [place] [address] [facility]11/11/22
--- OUTSIDE RECORDS SUMMARY | 2025-08-11 07:16 | XMS_ITS | Patient Health Record ---
Author Organization [facility] Address [facility] [address] Care Team Providers Care [employer] Name Role Phone Vinicio Andersen Unavailable [phone] Reason For Referral No Information Plan Of Treatment No Information Insurance Providers Payer Name Payer Address Payer Phone Subscriber Number Group Number Insured Name Patient Relationship to Insured Coverage Start Date Coverage End Date [employer] [address] [place] [address] [id number], StevenSelf - patient is the insured
--- OUTSIDE RECORDS SUMMARY | 2025-08-11 07:17 | XMS_ITS | Patient Health Record ---
Author Organization [facility] es Address [address] [place] [address] Care Team Providers Care Emergency Room Specialist Name Role Phone Alejandra Edmonds Primary Care Provider [phone] Li Quiñones Unavailable [phone] Allergies No Known Allergies Results Component Value Reference Range Flag Notes Dipstick and Microscopic Reviewed date:07/12/2025 09:23:02 AM Interpretation: Performing Lab:, [facility], [address] [place] Notes/Report: Name Collection Type:: Clean-Voided Midstream Color,Urine Light-Yellow Yellow Appearance,UrineClearClearSpecificy Carlton,Urine1.0221.001-1.030NpH,Urine6.0 5.0-9.0NLeukocyte Esterase,UrineNegativeNegativeNitrite,UrineNegativeNegative Protein,Tdudy73Vbodtmtx mg/dLGlucose,Urine (UA)100Normal mg/dLKetones,Urine NegativeNegativeUrobilinogen,UrineNormalNormal mg/dLBilirubin,UrineNegative NegativeOccult Blood,Urine3+NegativeRBC,UrineInnumerable0-4 [HPF]WBC,Exxlw87-02 0-4 [HPF]Bacteria,UrineNone SeenNone Seen [HPF]Hyaline Casts,UrineNone0-8 [LPF] Mucus,UrineRareComplete Blood Count Auto Diff Reviewed date:07/12/2025 09:23:02 AM Interpretation: Performing Lab:, [facility], [address] [place] Notes/Report:White Blood Count10.04.1-10.5 [CFU]/mLNUncorrected WBC10.04.1-10.5 10*3/uLNRed Blood Count5.353.90-5.60 10*6/cUWAgcykxbfgt37.713.0-17.0 g/dLN Ruasypeehd64.938.8-50.0 %NMean Corpuscular Ecgxve41.883.5-101 fLNMean Corpuscular Rrwmcbwwoi25.427.5-35.2 pgNMean Corpuscular HGB Conc34.232.5-35.6 g/dLNRed Cell Distribution Width13.812.0-14.8 %NPlatelet Gfbdg442836-943 10*3/uL NMean Platelet Volume7.86.6-10.1 fLNNeutrophils % (Auto)70.2. %Lymphocytes % (Auto)21.5. %Monocytes % (Auto)5.5. %Eosinophils % (Auto)2.1. %Basophils % (Auto)0.7. %NRBC%0.20-0.5 /100{WBC}NNeutrophils # (Auto)7.01.8-7.7 10*3/uLN Lymphocytes # (Auto)2.11.00-4.8 10*3/uLNMonocytes # (Auto)0.50.0-0.8 10*3/uLN Eosinophils # (Auto)0.20.0-0.45 10*3/uLNBasophils # (Auto)0.10.0-0.2 10*3/uLN Monocyte Distribution Width19.430.00-20.00 %NLipase Reviewed date:07/12/2025 09:23:02 AM Interpretation: Performing Lab: Notes/Report:Qhhuyc93.011.0-82.0 U/LNComprehensive Metabolic Panel Reviewed date:07/12/2025 09:23:02 AM Interpretation: Performing Lab:, [facility], [address] Notes/Report:Ukxpgnk88727-082 mg/dLH Random Glucose Reference Range is dependent on time and content of last meal. Glucose of more than 200 mg/dL in a nonstressed, ambulatory subject supports the diagnosis of Diabetes Mellitus. ADA recommended reference range Blood Urea Qmsixdio505-04 mg/dLNCreatinine1.150.70-1.30 mg/vCXIuxqpq419636-088 mmol/LNPotassium4.33.5-5.1 mmol/LN Hemolysis is present at a level that could interfere with the result. Contact lab if redraw is required Sfyzqnpw58356-778 mmol/LNCarbon Ffuaqsh12.021.0-31.0 mmol/LNCalcium9.48.6-10.3 mg/dLNTotal Protein7.66.4-8.9 g/dLNAlbumin Level4.63.5-5.7 g/dLNGlobulin3.0 Albumin/Globulin Ratio1.5Bilirubin,Total0.70.3-1.0 mg/dLNAspartate Amino Wbfaonjurls6078-24 U/LNAlanine Ozbgbaqvxxbbrfpq691-38 U/LNAlkaline Grpwheykian26 34-104 U/LNEstimated GFR>60.0Anion Gap12.36.0-15.0NCreatinine Clr Calc Pharmacy 89.38Urine Culture Reviewed date:05/25/2025 02:11:48 PM Interpretation: Performing Lab:, [facility], [address], [place] Notes/Report:Comprehensive Metabolic Panel Reviewed date:11/05/2024 07:25:40 AM Interpretation: Performing Lab:, [facility], [address], [place] Notes/Report: Reason for Exam Hyperlipidemia, unspecified hyperlipidemia type Reason for Exam Vitamin D deficiency, ixhvobtpmsnImutyxq5601-074 mg/dLN Random Glucose Reference Range is dependent on time and content of last meal. Glucose of more than 200 mg/dL in a nonstressed, ambulatory subject supports the diagnosis of Diabetes Mellitus. ADA recommended reference range Blood Urea Fwujbrnl158-74 mg/dLNCreatinine1.100.70-1.30 mg/zOZGtsfpd395848-289 mmol/LNPotassium4.23.5-5.1 mmol/JFVmppzanq18487-927 mmol/LNCarbon Sjcptbg32.2 21.0-31.0 mmol/LNCalcium8.98.6-10.3 mg/dLNTotal Protein7.06.4-8.9 g/dLNAlbumin Level4.53.5-5.7 g/dLNGlobulin2.5Albumin/Globulin Ratio1.8Bilirubin,Total0.70.3- 1.0 mg/dLNAspartate Amino Kikopiebbhx5342-90 U/LNAlanine Mrvwtxtkjoogtegy725-78 U/LHAlkaline Qzfygfhtmkv1434-074 U/LNEstimated GFR>60.0Anion Gap9.06.0-15.0 meq/LNLipid Panel Reviewed date:11/05/2024 07:25:26 AM Interpretation: Performing Lab: Notes/Report: Reason for Exam Hyperlipidemia, unspecified hyperlipidemia type Reason for Exam Vitamin D deficiency, poiusrpdxwjWjtelndjjlk409968-351 mg/dLL Chol less than 200 mg/dl low risk Chol 201-239 mg/dl borderline risk Chol 240 mg/dl and greater high risk HDL Terizfgpixx4369-57 mg/dLN HDL CHOL ATP-III CLASSIFICATION Cardiovascular Risk HDL > or equal to 60 mg/dL LOW HDL < 40 mg/dL HIGH Triglyceride w/Koyddj5482-810 mg/dLH TRIG ATP III CLASSIFICATION TRIG less than 150 mg/dL Normal TRIG 150-199 mg/dL Borderline high TRIG 200-500 mg/dL High TRIG greater than 500 mg/dL Very high Standard traceable to the Center for Disease Conrtrol and Prevention (CDC) test method. LDL Cholesterol,Bgrqfknfey629-917 mg/dLN LDL ATP III CLASSIFICATION LDL less than 100 mg/dL Optimal LDL 100-129 mg/dL Near or above optimal LDL 130-159 mg/dL Borderline high LDL 160-189 mg/dL High LDL greater than 189 mg/dL Very high VLDL MGEPLIJENNK97Wfmm/HDL Ratio3.2<5.0Thyroid Stim Hormone w/Rflx Reviewed date:11/05/2024 07:25:32 AM Interpretation: Performing Lab: Notes/Report: Reason for Exam Hyperlipidemia, unspecified hyperlipidemia type Reason for Exam Vitamin D deficiency, unspecifiedThyroid Stim Hormone w/Rflx1.50 0.45-5.33 u[iU]/mLNVitamin D 25 Hydroxy Reviewed date:11/05/2024 07:29:40 AM [...] JCEM. 2010; 96(7):1911-30. Complete Blood Count Auto Diff Reviewed date:11/05/2024 07:25:53 AM Interpretation: Performing Lab:, [facility], [address] Notes/Report: type Reason for Exam Hyperlipidemia, unspecified hyperlipidemiaWhite Blood Count6.4 4.1-10.5 10*3/uLNUncorrected WBC6.44.1-10.5 10*3/uLNRed Blood Count5.063.90-5.60 10*6/pXHIeqlonctjq44.013.0-17.0 g/vUHOkizjuamod31.238.8-50.0 %NMean Corpuscular Oaqjzg10.383.5-101 fLNMean Corpuscular Mbrwpgcafx34.727.5-35.2 pgNMean Corpuscular HGB Conc34.032.5-35.6 g/dLNRed Cell Distribution Width13.212.0-14.8 %NPlatelet Ssnyp546688-140 10*3/uLNMean Platelet Volume7.66.6-10.1 fLN Neutrophils % (Auto)56.1. %Lymphocytes % (Auto)33.3. %Monocytes % (Auto)5.5. % Eosinophils % (Auto)4.3. %Basophils % (Auto)0.8. %NRBC%0.30-0.5 /100{WBC}N Neutrophils # (Auto)3.61.8-7.7 10*3/uLNLymphocytes # (Auto)2.11.00-4.8 10*3/uLN Monocytes # (Auto)0.30.0-0.8 10*3/uLNEosinophils # (Auto)0.30.0-0.45 10*3/uLN Basophils # (Auto)0.00.0-0.2 10*3/uLNComprehensive Metabolic Panel Reviewed date:06/08/2025 05:57:39 PM Interpretation: Performing Lab:, [facility], [address] [place] Notes/Report: Reason for Exam Vitamin D deficiency, unspecified Reason for Exam High blood norxvkmyfanjkAziullz59577-738 mg/dLH Random Glucose Reference Range is dependent on time and content of last meal. Glucose of more than 200 mg/dL in a nonstressed, ambulatory subject supports the diagnosis of Diabetes Mellitus. ADA recommended reference range Blood Urea Kzswrqlp967-09 mg/dLNCreatinine1.020.70-1.30 mg/dCGIowoyf157891-455 mmol/LNPotassium4.03.5-5.1 mmol/CYGiorpspj69320-372 mmol/LNCarbon Ttqxwhz17.8 21.0-31.0 mmol/LNCalcium8.88.6-10.3 mg/dLNTotal Protein7.36.4-8.9 g/dLNAlbumin Level4.63.5-5.7 g/dLNGlobulin2.7Albumin/Globulin Ratio1.7Bilirubin,Total1.20.3- 1.0 mg/dLHAspartate Amino Gznbgavvimu7961-88 U/LNAlanine Qadjxfbvswokgyhf153-67 U/LNAlkaline Idtuxylthyb2239-840 U/LNEstimated GFR>60.0Anion Gap13.26.0-15.0N Lipid Panel Reviewed date:06/08/2025 05:57:14 PM Interpretation: Performing Lab: Notes/Report: Reason for Exam High blood triglycerides Reason for Exam Vitamin D deficiency, diduiyydhdjWqccsemkyvl365935-061 mg/dLN Chol less than 200 mg/dl low risk Chol 201-239 mg/dl borderline risk Chol 240 mg/dl and greater high risk HDL Teokyiqpvxp7744-41 mg/dLN HDL CHOL ATP-III CLASSIFICATION Cardiovascular Risk HDL > or equal to 60 mg/dL LOW HDL < 40 mg/dL HIGH Triglyceride w/Rxrsgt3062-858 mg/dLH TRIG ATP III CLASSIFICATION TRIG less than 150 mg/dL Normal TRIG 150-199 mg/dL Borderline high TRIG 200-500 mg/dL High TRIG greater than 500 mg/dL Very high Standard traceable to the Center for Disease Conrtrol and Prevention (CDC) test method. LDL Cholesterol,Nvxuxovmep709-720 mg/dLN LDL ATP III CLASSIFICATION LDL less than 100 mg/dL Optimal LDL 100-129 mg/dL Near or above optimal LDL 130-159 mg/dL Borderline high LDL 160-189 mg/dL High LDL greater than 189 mg/dL Very high VLDL BAGQLGOGWPZ80Mdyd/HDL Ratio3.6<5.0Prostate Specific Antigen Scrn Reviewed date:06/08/2025 05:57:21 PM Interpretation: Performing Lab:, [facility], [address] Notes/Report: Reason for Exam Encounter for prostate cancer screeningPSA Screen (Yearly Only) 0.9200.000-4.000 ng/mLN Serial tumor marker results determined by assays using different manufacturers or methods may not be comparable. 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 Vitamin D 25 Hydroxy Reviewed date:06/08/2025 05:56:47 PM Interpretation: Performing Lab: Notes/Report: Reason for Exam High blood triglycerides Reason for Exam Vitamin D deficiency, unspecifiedVitamin D 25 Hydroxy Total38.6 30-100 ng/mLN VITAMIN D STATUS 25(OH)VITAMIN D RANGE (ng/mL) Deficient <20 Insufficient 20 to <30 Sufficient 30 to 100 Reference: Guerline MF,Vaibhav NC, Kay-Andrea OCONNOR, et al. Evaluation,treatment, and prevention of vitamin D deficiency; an Endocrine Society clinical practice guideline. JCEM. 2010; 96(7):1911-30. Complete Blood Count Auto Diff Reviewed date:05/27/2025 01:46:43 PM Interpretation: Performing Lab:, [facility], [address] Notes/Report:White Blood Count11.74.1-10.5 [CFU]/mLHUncorrected WBC11.74.1-10.5 10*3/uLHRed Blood Count5.063.90-5.60 10*6/iPMJiupdqhdif99.513.0-17.0 g/dLN Xliogprylb32.638.8-50.0 %NMean Corpuscular Bxmkre45.383.5-101 fLNMean Corpuscular Dmnfxpqjaz23.727.5-35.2 pgNMean Corpuscular HGB Conc33.332.5-35.6 g/dLNRed Cell Distribution Width13.112.0-14.8 %NPlatelet Qtlog831811-860 10*3/uL NMean Platelet Volume7.16.6-10.1 fLNNeutrophils % (Auto)82.6. %Lymphocytes % (Auto)14.1. %Monocytes % (Auto)2.6. %Eosinophils % (Auto)0.2. %Basophils % (Auto)0.5. %NRBC%0.10-0.5 /100{WBC}NNeutrophils # (Auto)9.71.8-7.7 10*3/uLH Lymphocytes # (Auto)1.61.00-4.8 10*3/uLNMonocytes # (Auto)0.30.0-0.8 10*3/uLN Eosinophils # (Auto)0.00.0-0.45 10*3/uLNBasophils # (Auto)0.10.0-0.2 10*3/uLN Monocyte Distribution Width16.970.00-20.00 %NDipstick and Microscopic Reviewed date:05/26/2025 09:23:42 PM Interpretation: Performing Lab:, [facility], [address], [place] Notes/Report: Name Collection Type:: Clean-Voided MidstreamColor,UrineDark-BrownYellowAA Appearance,UrineTurbidClearAASpecificy Carlton,Urine1.0281.001-1.030NpH,Urine5.5 5.0-9.0NLeukocyte Esterase,Urine2+NegativeNitrite,UrineNegativeNegative Protein,Yzvsb579Ehxjmrri mg/dLGlucose,Urine (UA)NormalNormal mg/dLKetones,Urine NegativeNegativeUrobilinogen,UrineNormalNormal mg/dLBilirubin,UrineNegative NegativeOccult Blood,Urine3+NegativeRBC,UrineInnumerable0-4 [HPF]WBC,Urine5-90-4 [HPF]Othe Crystals,Urine3+Bacteria,UrineNone SeenNone Seen [HPF]Hyaline Casts,UrineNone0-8 [LPF]Mucus,Urine4+AABudding Yeast,Urine4+None Seen [HPF] Lipase Reviewed date:05/25/2025 02:13:24 PM Interpretation: Performing Lab: Notes/Report:Knkogf90.011.0-82.0 U/LNHepatic Panel Reviewed date:05/25/2025 02:11:58 PM Interpretation: Performing Lab:, [facility], [address] [place] Notes/Report:Total Protein7.46.4-8.9 g/dLNAlbumin Level4.63.5-5.7 g/dLNGlobulin 2.8Albumin/Globulin Ratio1.6Bilirubin,Total0.80.3-1.0 mg/dLNBilirubin,Direct0.20 0.03-0.18 mg/dLHBilirubin,Indirect0.6Aspartate Amino Yczooykxqzn8469-54 U/LN Alanine Hcefeppkzvhpynpn654-35 U/LNAlkaline Rrkjrxlkejl5495-330 U/LNBasic Metabolic Panel Reviewed date:05/26/2025 09:23:53 PM Interpretation: Performing Lab: Notes/Report:Bjlkhbc63349-746 mg/dLH Random Glucose Reference Range is dependent on time and content of last meal. Glucose of more than 200 mg/dL in a nonstressed, ambulatory subject supports the diagnosis of Diabetes Mellitus. ADA recommended reference range Blood Urea Afwavlzn070-72 mg/rVQPxzdpq845420-574 mmol/LNPotassium4.43.5-5.1 mmol/UECzxgtwio70141-377 mmol/LNCarbon Cjgjvoy63.321.0-31.0 mmol/LNCalcium9.4 8.6-10.3 mg/dLNCreatinine1.130.70-1.30 mg/dLNEstimated GFR>60.0Anion Gap13.1 6.0-15.0NCreatinine Clr Calc Qkjfqtqc99.47 Reason For Referral No Information Medications Medication SIG (Take, Route, Frequency, Duration) Notes Start Date End Date Status Temazepam 30 MG Capsule 1 capsule at bed time Orally Once a day; Duration: 30 days 5ActivePentoxifyllineActivehydrOXYzine HCl 50 MG TabletTAKE 1 TABLET BY MOUTH AT NIGHT FOR 30 DAYS.; Duration: 30ActiveHYDROcodone-Acetaminophen 5-325 MG Tablet 1 tablet Orally every 6 hrs; Duration: 30 days As needed 5ActiveXarelto 20 MG TabletTAKE 1 TABLET BY MOUTH EVERY DAY; Duration: 30ActiveVitamin D (Ergocalciferol) 1.25 MG (03753 UT) CapsuleTAKE 1 CAPSULE BY MOUTH 1 TIME A WEEK; Duration: 84 daysActiveFlonase Allergy Relief 50 MCG/ACT Suspension1 spray in each nostril Nasally Once a day; Duration: 1 month ActiveCyclobenzaprine HCl 10 MG Tablet1 tablet Orally twice a day; Duration: 30 days09/12/2023ctiveVraylar 3 MG CapsuleTAKE 1 CAPSULE BY MOUTH EVERY DAY; Duration: 30ActiveDesvenlafaxine Succinate ER 50 MG Tablet Extended Release 24 HourTAKE 1 TABLET BY MOUTH EVERY DAY; Duration: 30ActiveTamsulosin HCl 0.4 MG CapsuleTAKE 1 CAPSULE BY MOUTH EVERY DAY 30 minutes after same meal each day until stone passess Oral; Duration: 10 DaysActiveIbuprofen 600 MG TabletOral; Duration: 7 DaysActiveAtorvastatin Calcium 20 MG Tablet1 tablet Orally Once a day; Duration: 90 daysActiveQUEtiapine Fumarate 50 MG TabletTAKE 1 OR 2 TABLETS BY MOUTH AT BEDTIME; Duration: 90ActiveOndansetron 4 MG Tablet Disintegrating Oral; Duration: 4 DaysActive Immunizations Vaccine Route Administration Date Status Comme nts MODERNA IM Intramuscular 12/07/2020 Administered MODERNAIM Ympzpxuccloqw00/08/2021dministeredMODERNAIM Vbmwajjfvhbrg33/18/2021 AdministeredInfluenza 3+ PRIVATEIM Zoioqgnofycqj19/20/2020AdministeredInfluenza 3+ PRIVATEIM Cvglrujjhtvbh72/02/2021dministeredInfluenza 3+ PRIVATEIM Xdpaprhrwglvt15/28/2023Administered Social History Tobacco Use: Social History Observation [...] hurting yourself in some wayNot at allTotal Dzuch4NozrbnufhktyyMqoqiwx DepressionSubstance abuse/mental health issues of patient/familyPatient - [...] in the past year?Less than monthly (1 point)Ywbpea7QdzjpovahqvacmTetmvpbaCadwksi Use:Social InfoQuestion AnswerNotesTobacco Control (Standard)Tobacco use:Nonsmoker Problems Problem Type SNOMED Code ICD Code Onset Dates Problem Status W/U Status Risk Notes Problem Vitamin D deficiency (47130656) Vitamin D deficiency, unspecified (E55.9) ActiveconfirmedProblemPrimary insomnia (0703951)Primary insomnia (F51.01)Active confirmedProblemErectile dysfunction caused by drug (disorder) (593789490)Drug- induced erectile dysfunction (N52.2)ActiveconfirmedProblemChronic pain (90840104)Other chronic pain (G89.29)ActiveconfirmedProblemPeripheral vascular disease (318349068)PVD (peripheral vascular disease) (I73.9)Activeconfirmed ProblemCOPD - Chronic obstructive pulmonary disease (30478489)Chronic obstructive pulmonary disease, unspecified COPD type (J44.9)Activeconfirmed ProblemGastroesophageal reflux disease (092664745)Gastroesophageal reflux disease, esophagitis presence not specified (K21.9)ActiveconfirmedProblem Hyperlipidaemia (24245193)Hyperlipidemia, unspecified hyperlipidemia type (E78.5)ActiveconfirmedProblemErectile dysfunction (disorder) (363660452)Erectile dysfunction, unspecified erectile dysfunction type (N52.9)Activeconfirmed ProblemKidney stone (02284844)Kidney stone (N20.0)ActiveconfirmedProblemModerate recurrent major depression (67622884)Moderate episode of recurrent major depressive disorder (F33.1)ActiveconfirmedProblemEpisodic mood disorder (10840571993419)Episodic mood disorder (F39)ActiveconfirmedProblemHistory of pulmonary embolus (136010471)History of pulmonary embolus (PE) (Z86.711)Active confirmedProblemLumbosacral spondylosis without myelopathy (12071245) Osteoarthritis of lumbar spine, unspecified spinal osteoarthritis complication status (M47.816)ActiveconfirmedProblemBilateral tinnitus (9917371444004) Bilateral tinnitus (H93.13)ActiveconfirmedProblemPure hyperglyceridemia (697556861)High blood triglycerides (E78.1)ActiveconfirmedProblemAtrophie nadia (L90.8)Activeconfirmed Vital Signs Heart Rate 106 /min 08/09/2025 Knksfbnvhds11.4 degrees Dyzbdhdfzs80/11/2025Respiratory Rate20 /min08/09/2025 Ozlxwdvl01 %08/09/2025lood pressure vxbrfuezk70 mm Hg08/09/20258107Bmapcw4oo 2 in in08/09/2025lood pressure tczhexyh879 mm Hg08/09/20255839Eyjzjq228 lbs110/09/2024MI 31.32 kg/m208/09/2025 Encounters Encounter Location Date Provider Diagnosis [facility] [address] [place] [address] 08/16/2024 [facility] [address] [place] [address]/ [facility] [address] [place] [address] 09/15/2024[facility] [address] [place] [address]/[facility] [address] [place] [address]/03/2025Laura SpasicHyperlipidemia, unspecified hyperlipidemia type E78.5[facility] [address] [place] [address]/[facility] [address] [place] [address]/[facility] [id number] [place] [address]/Laura [address] [place] [address]/[facility] [id number] [place] [address]/09/2024[facility] [address] [place] [address]/[facility] [address] [place] [address]/05/2025 [facility] [address] [place] [address] 02/09/2025[facility] [address] [place] [address]/11/2024[facility] [address] [place] [address]/08/2025[facility] [address] [place] [address]/[facility] [address] [place] [address]/[facility] [address] [place] [address]/[facility] [address] [place] [address]/06/2025L[facility] [address] [place] [address] 06/14/2025[facility] [address] [place] [address]/L[facility] [address] [place] [address]/03/2025Laura SpasicOther chronic pain G89.29[facility] [address] [place] [address]/[facility] [address] [place] [address] 07/15/2025Laura [address] [place] [address]/Laura SpasicKidney stone N20.0 and History of pulmonary embolus (PE) Z86.[address] [address] 08/09/2025Laura SpasicKidney stone N20.0 ; Moderate episode of recurrent major depressive disorder F33.1 ; PVD (peripheral vascular disease) I73.9 ; Chronic obstructive pulmonary disease, unspecified COPD type J44.9 ; Other chronic pain G89.29 ; Other chronic pain G89.29 and Hyperlipidemia, unspecified hyperlipidemia type E78.5FR[facility] [place] [address]/02/2025Laura SpasicVitamin D deficiency, unspecified E55.9 ; Hyperlipidemia, unspecified hyperlipidemia type E78.5 andPVD (peripheral vascular disease) I73.9[place] [address] [place] [address] 02/01/2025Laura SpasicChronic obstructive pulmonary disease, unspecified COPD type J44.9 ; Primary insomnia F51.01 ; Hyperlipidemia, unspecified hyperlipidemia type E78.5 ; PVD (peripheral vascular disease) I73.9 ; Moderate episode of recurrent major depressive disorder F33.1 ; Vitamin D deficiency, unspecified E55.9 and Atrophie nadia L90.8[address] [address]/08/2025Laura SpasicPVD (peripheral vascular disease) I73.9 ; Chronic obstructive pulmonary disease, unspecified COPD type J44.9 ; Other chronic pain G89.29 ; Vitamin D deficiency, unspecified E55.9 ; High blood triglycerides E78.1 and Encounter for prostate cancer screening Z12.5[facility] [address] [address]/05/2025Laura SpasicKidney stone N20.0 Assessments Encounter Date Diagnosis (ICD Code) Assessment Notes Treatment Notes Treatment Clinical Notes Section Notes 11/05/2024 Hyperlipidemia, unspecified hype rlipidemia type (ICD-10 - E78.5) 11/04/2024Vitamin D deficiency, unspecified (ICD-10 - E55.9)Will check Vit D level, continue Vitamin D replacement as advised. Discussed diet high in Vit D, also 10-15 minutes of direct sunlight is the best source of Vit D.11/04/2024 Hyperlipidemia, unspecified hyperlipidemia type (ICD-10 - E78.5)lipid panel every 3-6 months with CMP to monitor liver and renal function, adjust medications accordingly. Discussed a low chol diet. Enc moderate daily exercise. If you develop any muscle cramping, leg cramps/pain, intolerance to medication please RTO.02/01/2025hronic obstructive pulmonary disease, unspecified COPD type (ICD-10 - J44.9)COPD stable, continue medications as prescribed. Smoking cessation is encouraged. CP/pressure/sob, cough with fever, chills ER, 911 05/10/2025PVD (peripheral vascular disease) (ICD-10 - I73.9)pt requested medication refills today, refills sent per xbofkmf82/12/2025Chronic obstructive pulmonary disease, unspecified COPD type (ICD-10 - J44.9)COPD stable, continue medications as prescribed. Smoking cessation is encouraged. CP/pressure/sob, c ough [place], [address]/05/2025Kidney stone (ICD-10 - N20.0) Patient reports persistent [...] panel to assess kidney function. - Continue Clayton and hydrocodone as prescribed for pain. - [...] therefore requested a clearance. He did see [facility] and has low risk. He is medically cleared. He may stop is xeralto as directed by urology and restart when able07/26/2025History of pulmonary embolus (PE) (ICD-10 - Z86.711)ok to stop xeralto for procedure, restart as soon as recommended by urology.08/09/2025Kidney stone (ICD-10 - N20.0) Persistent pain attributed [...] mechanisms such as exercise, group therapy, and counseling.05/10/2025Other chronic pain (ICD-10 - G89.29)You are being prescribed a control substance. These can be habit forming and will be used for a short period a time. Refills will be determined based on symptoms. Do not mix these medications with alcohol, do not share these medications, do not sell these medication, do not drive or operate heavy [employer] while taking these medications. [place] report was [...] cramping, leg cramps/pain, intolerance to medication please RTO.05/10/2025Vitamin D deficiency, unspecified (ICD-10 - E55.9)Will check Vit D level, continue Vitamin D replacement as advised. Discussed diet high in Vit D, also 10-15 minutes of direct sunlight is the best source of Vit D.08/09/2025PVD (peripheral vascular disease) (ICD-10 - I73.9) stable, no new sores, continue medications as hjejtlwtsn38/11/2025hronic obstructive pulmonary disease, unspecified COPD type (ICD-10 - J44.9)COPD stable, continue medications as prescribed. Smoking cessation is encouraged. CP/pressure/sob, cough with [place], [place], [address]High blood triglycerides (ICD-10 - E78.1)lipid panel every 3-6 months with CMP to monitor liver and renal function, adjust medications accordingly. Discussed a low chol diet. Enc moderate daily exercise. If you develop any muscle cramping, leg cramps/pain, intolerance to medication please RTO.02/01/2025PVD (peripheral vascular disease) (ICD-10 - I73.9)continue with chol and bp control.05/10/2025 Encounter for prostate cancer screening (ICD-10 - Z12.5)due for annual screening via blood [...] mechanisms such as exercise, group therapy, and counseling.08/09/2025Other chronic pain (ICD-10 - G89.29)Pt with chronic [...] is needed, will discuss referral at that time.08/09/2025Other chronic pain (ICD-10 - G89.29) Ongoing pain requiring regular medication management. Hydrocodone used for chronic pain relief. - Refilled hydrocodone prescription for chronic pain management. 02/01/2025Vitamin D deficiency, unspecified (ICD-10 - E55.9)Will check Vit D level, continue Vitamin D replacement as advised. Discussed diet high in Vit D, also 10-15 minutes of direct sunlight is the best source of Vit D.02/01/2025 Atrophie nadia (ICD-10 - L90.8)pt requested medication refills today, refills sent per [id number]/09/2025Hyperlipidemia, unspecified hyperlipidemia type (ICD- 10 - E78.5)lipid panel every 3-6 months with CMP to monitor liver and renal function, adjust medications accordingly. Discussed a low chol diet. Enc moderate daily exercise. If you develop any muscle cramping, leg cramps/pain, intolerance to medication please RTO.02/01/2025OtherBody Mass Index: Care Instructions material was [id number]/07/2025OtherBody Mass Index: Care Instructions material was published, Body Mass Index: Care Instructions material was [id number]/09/2025OtherBody Mass Index: Care Instructions material was printed Plan Of Treatment Next Appt Details Provider Name:Alejandra Kendal, 11/08/2025 02:00:00 PM, [address] [facility], [place], [address], Insurance Providers Payer Name Payer Address Payer Phone Subscriber Number Group Number Insured Name Patient Relationship to Insured Coverage Start Date Coverage End Date MEDICARE CGS [address] [place] [address] [id number] Linda VAUGHN - patient is the hnpmush5703/29/2021MEDICAID SEC TO [facility] [address] [place] [id number], STEVENSelf - patient is the hcytznh4107/31/2021[facility] [address] [place] [id number], STEVENSelf - patient is the vytwetm7107/30/2019zMEDICAID [facility]BD [facility] [place] [id number], STEVENSelf - patient is the qqhawke9806/29/2019[employer] MEDICAID [place] [address] [place] [address] [phone], STEVENSelf - patient is the jriuqsc1504/24/2022 Medical (General) History Medical History History ICD Code Depression, SAD Surgical History Surgery Date(Month/Year) ankle , see's laser surgery on left leg d/t DVT Butterfly procedure left foot-Dr. Saleh 07/2018LEFT ANKLE SURGERY;PIN REMOVAL01/2022Hospitalization History Reason Date(Month/Year) Blood Clot in Lung [facility] Kidney [id number]/25/25
[2025-08-11] MEDS: CEFAZOLIN SODIUM 2 GM/50 ML D5W PREMIX IV (08:48)
--- NOTE | 2025-08-11 10:14 | P.URON_ITS ---
Urology Surgery Operative Note Operative Note Procedure Date: 08/11/25 Time Out Performed: yes Pre-op Diagnosis: Left ureteral calculus Post-op Diagnosis: other (Impacted left ureteral calculus) Procedures performed: 1. Cystoscopy. 2. Left ureteroscopy. 3. Thulium laser lithotripsy of a large impacted left ureteral calculus. 4. Stone fragment basket extraction. 5. Left pyeloscopy. 6. Thulium laser lithotripsy of the left renal calculi fragments. 7. Placement of 6 [place] variable length left ureteral stent Anesthesia: JAYDE Primary Surgeon: Virgilio Harmon Complications: None Estimated blood loss (mL): 10 Findings: 1. Large jagg stone impacted into the L2 ureter region. Specimens: Left ureteral calculus fragments Drains: 6 [place]er variable length left ureteral calculus Indications for Procedures: This gentleman has a 6 mm left proximal ureteral calculus that he has been unable to pass for the last 2-1/2 months. He is having pain daily. He is strongly desirous for ureteroscopic stone manipulation and probable stent placement on the left side. He has signed an informed consent after risks were explained. Detailed description of Procedure: The patient was brought to the operating room and placed on the operating room table in the supine position. SCDs were placed on the lower extremities and turned on and functioning during the entire case. Timeout was done by all parties in the room. We all agreed upon the patient's identification and the planned procedures for this patient. Genn. anesthesia was then administered. The patient was then repositioned into the modified dorsal lithotomy position. All pressure points were satisfactorily padded. Genitalia were sterilely prepped and draped in usual fashion. I started by passing a 22 [place] Olympus cystoscope per urethra and into the bladder. 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 Prostatic urethra showed by lobar obstruction. Panendoscopy in the bladder revealed no evidence of any tumors or stones. I passed a Glidewire through the scope and cannulated the left ureter. A ascended up to the stone which was seen at the L2 position. With multiple attempts it eventually was able to pass proximal and into the left kidney. The scope was removed. I then used a 10/12 [place]er ureteral access sheath and passed this over the wire and up the ureter to the L5 position. The stylette and wire were then removed. I then passed a flexible ureteroscope through the access sheath and ascended up the ureter. I arrived at the stone at the L2 position. The entire ureter in this region was edematous and erythematous. The stone was a jagged stone. It was much larger than 6 mm as reported on CT scan. This stone was tightly impacted into the ureteral wall. I then used a 270 Angstrom laser fiber and passed it through the scope and made contact with the stone. The thulium laser was used at 7 W on the fragmenting mode. I was able to correct the stone up into several pieces. The impacted portions had to be chiseled off of the wall of the ureter with the laser fiber without using the laser. Once all of the adhered stone was freed up it was then lasered into fragments. A 0 tip nitinol basket was used to extract pieces and these were pulled down and out and sent for stone analysis. Once the ureter was free of stone I then went into the kidney and did pyeloscopy. 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 There were some sizable pieces of the ureteral stone which had dropped into the renal pelvis. I then used the laser fiber and dusted these pieces. Upon completion, there was no evidence of any significant stone remaining. There were some submillimeter flecks remaining diffusely. The scope was then removed. I then passed a Glidewire through the access sheath and into the kidney and then the sheath was removed. The cystoscope was backloaded over the wire and passed into the bladder. I then slid a 6 [place] variable length stent over the wire up into the kidney. The wire was removed and there were good curls in the kidney and in the bladder. The bladder was drained of its contents and the scope was then removed. The anesthetic was then reversed. [facility] and [facility]ed to PACU in stable condition.
[2025-08-11] MEDS: SOLIFENACIN SUCCINATE 10 MG TABLET PO (10:35)
== END 2025-08-11 11:35 | disposition home or self-care (01) ==
LOC: SURGOUT 07:13
PROVIDERS: Visit Provider Urology
PROC: (CPT 52356; principal; 2025-08-11 08:35)
DX: N20.1 Calculus of ureter (principal); I10 Essential (primary) hypertension; E78.5 Hyperlipidemia, unspecified; F32.A Depression, unspecified; Z86.711 Personal history of pulmonary embolism; Z79.01 Long term (current) use of anticoagulants; Z79.899 Other long term (current) drug therapy; Z87.891 Personal history of nicotine dependence; M19.90 Unspecified osteoarthritis, unspecified site; F41.9 Anxiety disorder, unspecified
CPT/HCPCS: 52356; 36415; 76000; 82365; 99999; J0690; J1100; J1171; J1885; J2003; J2250; J2371; J2405; J2704; J3010